=== PATIENT | female | born 1995 | race Caucasian/White ===

== ENCOUNTER 2017-06-04 19:55 | Emergency (ER) | payer MEDICAID, OTHER ==
--- OUTSIDE RECORDS SUMMARY | 2017-06-04 20:04 | XMS REPORT ---
:1995 External Reference #:[id number] Author Organization [facility] Address [address] [address] Phone [phone] Care Team Providers Name Role Phone Donya Chan MD Care Team Information Fire Investigation Lieutenant Unavailable Tapan Thompson MD Primary Care Physician Unavailable Payers Type Date Identification Numbers Payment Provider Subscriber Commercial Policy Number: [id number] [facility] Jayde Casey PayID: [id number] [address] [address] [place] [address] Problems Date Description Provider Status Onset: 04/12/2015 Obstructive sleep apnea syndrome Roland Wilkins M.D. Active Onset: 04/12/2015 Gastroesophageal reflux disease Roland Wilkins M.D. Active Onset: 11/02/2015 Lactose intolerance Diana Fregoso M.D.,FACP Onset: 03/20/2016 Exercise-induced asthma Diana Fregoso M.D.,FACP Onset: 07/24/2016 Vaginitis Douglas Collins NP Inactive Inactive: 11/20/2016 Family History Date Family Member(s) Problem(s) Comments General Hypercholesterolemia mother General Hypertension mother/ father General Angina mother General Diabetes mother, maternal grandmother General Stroke mother : (age Father due to Prostate cancer 50 Years) Mother TIA Mother Diabetes Mother Heart disease Social History Type Date Description Comments Marital Status Significant Other Lives With Mother Lives With Male Partner 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 [employer] Work Status Not Currently 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 [employer] Cigarette Use Never Smoked Cigarettes ETOH Use 11/02/2015 Rarely consumes alcohol Smoking Patient has never smoked Recreational Drug Use Denies Drug Use Daily Caffeine Occasionally Exercise Type/Frequency Does not exercise General Hx Text no children Allergies, Adverse Reactions, Alerts Date Description Reaction Status Severity Comments 04/12/2015 Ibuprofen vomiting active Mild 11/02/2015 NSAIDs vomiting active 11/17/2013 NKDA inactive Medications Medication Date Status Form Strength Qnty SIG Indications Ordering Provider Fluticasone 05/20 Active Suspension 50mcg/Act 16gm 1 act each J01.90 Zsofia Propionate nostril Hao, twice daily DESIGN INSERTER Nasal [place] 05/20 Active Solution 0.05% 30ml 2 sprays J01.90 Zsofia Hour each nostril Hao, 2x daily as DESIGN INSERTER needed for congestion Meloxicam 11/18 Active Tablets 7.5mg 30tab 1 by mouth M70.71 s every day as Amee Thompson needed M.DIngrid,FACMartin Omeprazole 11/[address] 20mg 45cap 1 by mouth K21.9 s every other Amee Thompson, day M.D.,FACP Nizatidine 11/01 Active Capsules 300mg 45cap by mouth K21.9 s every other Amee Thompson, day M.DIngrid,FACP alternating w/ omeprazole Proair HFA 04/19 Active Aerosol 108(90Bas 1unit 1 puff every R06.2 e) s 4 hours as Tajik, mcg/Act needed for PAYMENT PROCESSOR chest tightness or wheezing Cpap 00/00 Active every night Unknown /0000 at bedtime Fiber-Caps 00/00 Active Tablets 625mg 1 by mouth Unknown /0000 every day Zovia 1/35E 00/00 Active Tablets 1-35mg-mc 28tab 1 by mouth Tapan (28) /0000 g s every day Amee Thompson M.D.,FACP Ketoconazole 04/14 Hx Cream 2% 60gm apply thin L42 layer Tajik, - topically to PAYMENT PROCESSOR 07/24 area twice a day until resolved Tessalon Perles 03/20 Hx Capsules 100mg 30cap 1-2 by mouth J45.21 s three times Amee Thompson, - a day as Aye,FACP 04/11 Azithromycin 03/20 Hx Tablets 250mg 6tabs 2 every day J45.21 for 1 day, Amee Thompson, - then 1 every M.D.,FACP Melatonin ER 02/25 Hx Tablets ER 3mg 30tab 1-2 tabs po G47.00 s at hs only Tajik, - as needed PAYMENT PROCESSOR 07/24 Lactaid 11/01 Hx Tablets 3000Unit 100ta 1-2 tab E73.9 bs 5x/day w/ Amee Thompson, - dairy as M.D.,FACP 07/24 Levofloxacin 04/12 Hx Tablets 500mg 5tabs 1 tablt by J06.9 mouth every Wilkins, - day M.D. 04/19 Escitalopram Hx Tablets 20mg 30tab 1 by mouth Unknown Oxalate /0000 s every day - 04/12 Norethindrone Hx Tablets 5mg 1 by mouth Unknown Acetate /0000 every day - 11/[address] 20mg 100ca 1 by mouth Unknown /0000 ps every day - 11/01 PPD Active Injection Ingraham /0000 Aye Gilmore Medications Administered in Office Medication Date Status Form Strength Qnty SIG Indications Ordering Provider PPD Administered Injection Mazin 017 Aye Gilmore PPD Administered Injection Douglas 016 Tajik, PAYMENT PROCESSOR HPV,Unspecifie Administered Injection Unknown d 011 HPV,Unspecifie Administered Injection Unknown d 010 HPV,Unspecifie Administered Injection Unknown d 010 Polio,Unspecif Administered Injection Unknown ied 999 Polio,Unspecif Administered Injection Unknown ied 997 Polio,Unspecif Administered Injection Unknown ied 995 Polio,Unspecif Administered Injection Unknown ied 995 Immunizations CPT Code Status Date Vaccine Reaction Lot # [id number] Given 04/14/2017 Influenza Virus Vaccine, no immediate reaction, [id number] Quadrivalent, Split, pt tolerated well Preservative Free 76088 Given 03/20/2016 Influenza Virus Vaccine, [id number] Quadrivalent, Split Virus, Im Use 64892 Given 05/04/2013 Meningococcal Conjugate Vaccine 33183 Given 05/04/2013 Hepatitis A Vaccine Pediatric/Adolescent Dosage 2 Dose Schedule 51565 Given 02/25/2010 Varicella (Chicken Pox) Immunization 83044 Given 02/02/2009 Meningococcal Conjugate Vaccine 63495 Given 02/02/2009 Tdap - Tetanus/Diptheria/Acellular Pertussis 96438 Given 01/25/1999 Measles Mumps And Rubella MMR 81464 Given 11/10/1997 Varicella (Chicken Pox) Immunization 05300 Given 11/17/1996 Measles Mumps And Rubella MMR 20528 Given 1995 Hep B Pediatric/Adolescent 61275 Given 1995 Hep B Pediatric/Adolescent 87173 Given 1995 Hep B Pediatric/Adolescent Vital Signs Date Vital Result Comment 05/20/2017 Height 63.5 inches 5'3.50" Weight 237.00 lb Heart Rate 106 /min BP Systolic Sitting 122 mmHg BP Diastolic Sitting 80 mmHg Body Temperature 99.2 F O2 % BldC Oximetry 98 % BMI (Body Mass Index) 41.3 kg/m2 04/14/2017 Height 63.5 inches 5'3.50" Weight 234.44 lb Heart Rate 124 /min BP Systolic 128 mmHg BP Diastolic 84 mmHg Body Temperature 99.3 F O2 % BldC Oximetry 99 % BMI (Body Mass Index) 40.9 kg/m2 11/20/2016 Height 63.5 inches 5'3.50" Weight 235.50 lb Heart Rate 101 /min BP Systolic Sitting 136 mmHg BP Diastolic Sitting 80 mmHg Body Temperature 98.4 F O2 % BldC Oximetry 99 % BMI (Body Mass Index) 41.1 kg/m2 07/24/2016 Weight 230.00 lb Heart Rate 111 /min BP Systolic Standing 136 mmHg BP Diastolic Standing 90 mmHg Body Temperature 97.9 F O2 % BldC Oximetry 96 % 04/14/2016 Height 63.5 inches 5'3.50" Weight 220.00 lb Heart Rate 100 /min BP Systolic 120 mmHg BP Diastolic 72 mmHg Body Temperature 98.7 F O2 % BldC Oximetry 99 % BMI (Body Mass Index) 38.4 kg/m2 04/11/2016 Weight 221.25 lb Heart Rate 100 /min BP Systolic Sitting 110 mmHg BP Diastolic Sitting 68 mmHg Body Temperature 98.4 F O2 % BldC Oximetry 99 % 03/20/2016 Height 63.5 inches 5'3.50" Weight 220.00 lb Heart Rate 100 /min BP Systolic Sitting 130 mmHg BP Diastolic Sitting 88 mmHg Body Temperature 98.6 F O2 % BldC Oximetry 99 % BMI (Body Mass Index) 38.4 kg/m2 02/26/2016 Weight 215.38 lb Heart Rate 73 /min BP Systolic Sitting 120 mmHg BP Diastolic Sitting 90 mmHg Body Temperature 97.9 F O2 % BldC Oximetry 98 % 02/04/2016 Weight 214.00 lb Heart Rate 95 /min BP Systolic Sitting 124 mmHg BP Diastolic Sitting 74 mmHg O2 % BldC Oximetry 98 % 11/19/2015 Height 63.5 inches 5'3.50" Weight 213.00 lb Heart Rate 78 /min BP Systolic Sitting 116 mmHg BP Diastolic Sitting 74 mmHg Body Temperature 97.9 F O2 % BldC Oximetry 98 % BMI (Body Mass Index) 37.1 kg/m2 11/02/2015 Height 63.5 inches 5'3.50" Weight 214.00 lb Heart Rate 84 /min BP Systolic Sitting 142 mmHg BP Diastolic Sitting 88 mmHg Respiratory Rate 14 /min Body Temperature 98.8 F BMI (Body Mass Index) 37.3 kg/m2 05/07/2015 Height 63.5 inches 5'3.50" Weight 210.00 lb Heart Rate 105 /min BP Systolic Sitting 122 mmHg BP Diastolic Sitting 78 mmHg Body Temperature 97.4 F O2 % BldC Oximetry 98 % BMI (Body Mass Index) 36.6 kg/m2 04/19/2015 Height 63.5 inches 5'3.50" Weight 208.50 lb Heart Rate 84 /min BP Systolic Sitting 122 mmHg BP Diastolic Sitting 72 mmHg Respiratory Rate 16 /min Body Temperature 98.2 F tympanic O2 % BldC Oximetry 97 % Ra BMI (Body Mass Index) 36.4 kg/m2 04/12/2015 Height 63.5 inches 5'3.50" Weight 212.38 lb Heart Rate 74 /min BP Systolic Sitting 112 mmHg BP Diastolic Sitting 72 mmHg Body Temperature 98.8 F O2 % BldC Oximetry 95 % BMI (Body Mass Index) 37.0 kg/m2 11/17/2013 Height 63 inches 5'3" Weight 224.00 lb Heart Rate 80 /min BP Systolic 110 mmHg Ra large cuff BP Diastolic 80 mmHg Ra large cuff BP Systolic Sitting 110 mmHg LA large cuff BP Diastolic Sitting 78 mmHg LA large cuff BP Systolic Standing 108 mmHg LA BP Diastolic Standing 80 mmHg LA Respiratory Rate 16 /min BMI (Body Mass Index) 39.7 kg/m2 Blood Pressure Percentile 51 % Height Percentile 31 % Weight Percentile >97th Results Test Date Test Result H/L Range Note Laboratory test 11/20/2016 Cytology SEE RESULT BELOW 1 finding GC/Chlamydia 11/20/2016 Chlamydia Negative Negative Amplified Rna trachomatis Rna Neisseria gonorrhoeae (GC) Rna Negative Negative Laboratory test 07/24/2016 Gardnerella/Yeast: Vaginal SEE RESULT 2 finding Dna BELOW Laboratory test 02/08/2016 TSH (Thyroid Stim Horm) 5.58 mcIU/mL 0.34- 5.60 3 finding Lipid Profile 02/08/2016 Triglycerides 153 mg/dL 4 (Trig/Chol/HDL) Cholesterol 172 mg/dL 5 HDL Cholesterol 51.8 mg/dL 6 LDL Cholesterol 90 mg/dL 7 Laboratory test finding 02/08/2016 Glucose 99 mg/dL 70-100 8 Cortisol 19.70 ?g/dL 9 Laboratory test finding 02/04/2016 Cytology SEE RESULT BELOW 10 1 SEE RESULT BELOW Name: JAYDE CASEY : [address]: Sabra Thompson MD Acct: [id number] Unit: [id number] AGE: 21 Location: [facility] Re11/20/16 SEX: F Status: REG REF SPEC: [id number] YOLA: 11/20/16-[address]: Tapan Thompson MD REQ: [id number] RECD: 11/20/16 STATUS: SOUT _ ORDERED: TP IMAGE ANAL, KENO WRITER/RUNNER PHYS INTERP COMMENTS: [id number] FINAL DIAGNOSIS EPITHELIAL CELL ABNORMALITIES Low grade squamous intraepithelial lesion (LSIL) A. Ectocervical/Endocervical Specimen Adequacy: Satisfactory of evaluation Transformation zone component identified Patient Information: HPV: Thin Layer Pap Test w/reflex to high risk HPV RNA testing when ASCUS Actual Specimen Date: 11/20/16 Last Menstrual Date: 10/29/16 Spec Date if unknown: 02/2016 ?: N Previous Abnormal Pap Smears?:Y If Yes, enter Diagnosis: Low grade squamous intraepithelial lesion. Signed (signature on file) René Corrigan MD 1539 This Pap test was evaluated with the assistance of the [employer] Test Imaging System. Due to cytologic findings at the trench digger microscope, comprehensive manual rescreening by a Change Room Attendant may be required. The Pap Smear is a screening test designed to aid in the detection of premalignant and malignant conditions of the uterine cervix. It is not a diagnostic procedure and should not be used as the sole means of detecting cervical cancer. Both false- positive and false- negative reports do occur. Depending on your risk status, a Pap smear should be obtained and evaluated every 1-3 years. END OF REPORT * ML=Testing performed at Main Lab DEPARTMENT OF PATHOLOGY, [address] [place] [address] René Corrigan M.D. Director [facility] # [id number] 2 SEE RESULT BELOW Name: JAYDE CASEY : [address]: Douglas Collins NP Acct: [id number] Unit: [id number] AGE: 21 Location: [facility] Re07/24/16 SEX: F Status: REG REF SPEC: [id number] YOLA: 07/24/16-[address]: Douglas Collins NP REQ: [id number] RECD: 07/24/16 STATUS: COMP _ SOURCE: VAGINAL SPDESC: ORDERED: Ashlie,Yeast DNA, Trich DNA COMMENTS: [id number] Procedure Result Reported Site Gardnerella/Yeast: Vaginal DNA Final 07/25/16- 1316 ML Organism 1 Negative Gardnerella Organism 2 POSITIVE KELLY The presence of G. vaginalis, although suggestive, is not diagnostic for bacterial vaginosis. Results should be interpreted in conjuction with other clinical and laboratory data available. Women with vaginal discharge should be evaluated for risk factors of cervicitis and pelvic inflammatory disease, toxic shock syndrome (S.aureus), and if present, evaluated for organisms not included in this assay such as N. gonorrhoeae, C. trachomatis, Mobiluncus, Mycoplasma and/or Prevotella. Mixed infections may occur. The performance of this test on patient specimens collected during or immediately after antimicrobial therapy is unknown. The presence or absence of Kelly species, or G. vaginalis cannot be used as a test for therapeutic success or failure. Trichomonas: Vaginal DNA Probe Final 07/25/16- 1316 ML Organism 1 Negative Trichomonas CONTINUED ON NEXT PAGE * ML=Testing performed at Main Lab DEPARTMENT OF PATHOLOGY, [address] [place] [address] René Corrigan M.D. Director [facility] # [id number] Patient: KEVENJAYDE [id number] (Continued) Specimen: [id number] Collected: 07/24/16 Received: 07/24/16 (Continued) Procedure Result Reported Site Trichomonas: Vaginal DNA Probe Final (continued) 07/25/16- 1316 The presence or absence of T. vaginalis cannot be used as a test for therapeutic success or failure. * ML - MAIN LAB ([facility]) . END OF REPORT * ML=Testing performed at Main Lab DEPARTMENT OF PATHOLOGY, [address] [place] [address] René Corrigan M.D. Director [facility] # [id number] 3 FASTING 10 HOUR fasting labs do in Am no later than 8 am 4 Desirable <150 Borderline high 150-199 High 200-499 Very High >500 5 Desirable <200 Borderline high 200-239 High >239 6 Low <40 Desirable: 40-60 High: >60 7 Desirable: <100 mg/dL Near Optimal: 100-129 mg/dL Borderline High: 130-159 mg/dL High: 160-189 mg/dL Very High: >189 mg/dL 8 FASTING 10 HOUR fasting labs do in Am no later than 8 am 9 AM 8.7-22.4 PM <10 10 SEE RESULT BELOW Name: JAYDE CASEY : [address]: Douglas Collins PAYMENT PROCESSOR Acct: [id number] Unit: [id number] AGE: 21 Location: [facility] Re02/04/16 SEX: F Status: REG REF SPEC: [id number] YOLA: 02/04/16-1649 [facility] DR: Douglas Collins PAYMENT PROCESSOR REQ: [id number] RECD: 02/04/16 STATUS: SOUT _ ORDERED: IMAGE ANALYSIS, PAP SM PATH REV COMMENTS: [id number] FINAL DIAGNOSIS EPITHELIAL CELL ABNORMALITIES Low grade squamous intraepithelial lesion (LSIL) A. Ectocervical/Endocervical Specimen Adequacy: Satisfactory of evaluation Transformation zone component identified Patient Information: HPV: Thin Layer Pap Test w/reflex to high risk HPV RNA testing when ASCUS Actual Specimen Date: 02/04/16 Last Menstrual Date: 02/01/16 Spec Date if unknown: initial ?: N Post Menopausal?: N Hysterectomy?: N Signed (signature on file) Phyllis Whitehead MD 1526 This Pap test was evaluated with the assistance of the [employer] Test Imaging System. Due to cytologic findings at the trench digger microscope, comprehensive manual rescreening by a Change Room Attendant may be required. The Pap Smear is a screening test designed to aid in the detection of premalignant and malignant conditions of the uterine cervix. It is not a diagnostic procedure and should not be used as the sole means of detecting cervical cancer. Both false- positive and false- negative reports do occur. Depending on your risk status, a Pap smear should be obtained and evaluated every 1-3 years. END OF REPORT * ML=Testing performed at Main Lab DEPARTMENT OF PATHOLOGY, [address] [place] [address] René Corrigan M.D. Director [facility] # [id number] Procedures Date CPT Code Description Status 11/17/2013 20655 EKG Tracing & Interpretation Completed 09/13/2013 49672 EKG, Interpretation Only Completed 05/04/2013 42276 Polysomnography Sleep Staging 4+ Parameters W/Cpap Completed 12/21/2012 48349 Polysomnography Sleep Staging 4+ Parameters Completed Encounters Type Date Location Provider CPT E/M Dx Office Visit 04/14/2017 11:20a [facility] Mazin Gilmore, 98189 Z00.01 Medicine - [place]ady Griffiths Z23 Z11.1 Office Visit 11/20/2016 3:40p [facility] Tapan Thompson, 58849 R87.618 Medicine - [place] Grady Griffiths,FACP G47.00 E66.01 E03.9 Office Visit 07/24/2016 1:40p [facility] [place] [address] Office Visit 04/14/2016 11:20a [facility] [place] [address] Z11.1 Office Visit 04/11/2016 2:20p [facility] Medicine - Douglas Collins, PAYMENT PROCESSOR [address] Z11.1 E66.9 Office Visit 03/20/2016 1:40p [facility] Tapan Thompson, [address] J45.21 Medicine - [address] Aye,FACP Z23 Office Visit 02/26/2016 1:40p [facility] Medicine - Douglas Collins, PAYMENT PROCESSOR [address] Office Visit 02/04/2016 1:40p [facility] Medicine - Douglas Collins, PAYMENT PROCESSOR [address] E66.9 Office Visit 11/19/2015 1:40p [facility] Douglas Collins, PAYMENT PROCESSOR 65149 M70.71 - [address] Office Visit 11/02/2015 9:20a [facility] Tapan Thompson, [address]3883 E73.9 - [address] Aye,FACP K21.9 E66.09 M25.551 Office Visit 05/07/2015 4:00p [facility] Roland Wilkins M.D. 19170 E73[address] - [address] E73.9 Office Visit 04/19/2015 11:00a [facility] Medicine - Douglas Collins, PAYMENT PROCESSOR [address] R05 R06.2 M54.5 Office Visit 04/12/2015 11:00a [facility] Roland Wilkins M.D. [address]97 J06[address] K21.9 G47.33 E66.09 Office Visit 11/17/2013 2:00p [facility] Dillard, [address] 780.79 Quique Griffiths 327.23 Office Visit 12/30/2012 2:55p [facility] Josiah Charles [address] 327.23 M.DIngrid Office Visit 12/02/2012 3:09p [facility] Josiah Charles 61576 327.23 M.DIngrid 347.00 Plan of Care Future Appointment(s):07/16/2017 11:20 am - Tapan Thompson M.D.,FACP at [facility] Medicine - [address]05/20/2017 - KEV EsquivelJ01.90 Acute sinusitis, unspecifiedNew Medication:Fluticasone Propionate 50 mcg/ActNasal [place] 12 Hour 0.05 %Comments:You likely have a viral infection of your sinuses.1. We recommend to increase rest and fluid intake,increase vitamin C.Take Tylenol 3 x day to reduce the pain and discomfort.Nasal irrigation: Flushing the nose and sinuses with a saline solution several times per day has been proven to decrease painassociated with congestion and shorten the duration of symptoms. Sent RX to your pharmacy.Nasal steroids Nasal steroids ( steroids delivered by a nasal spray) can help to reduce swelling inside the nose , usually within two to three days. These drugs have few side effects and relieve symptoms in mostpeople.If symptoms worsen or persist please call. I will send a prescription for an antibiotics ifsymptoms do not improve next 2 days.Follow up:as [id number] CoughComments:Topical [place]: honey, winter, licorice, cough drops or syrups are locally soothing. Their use is not supported by scientific evidence.
[2017-06-04] MEDS ORDERED: Ondansetron ODT TAB* 4 MG SL ONE (20:22)
[2017-06-04] MEDS ORDERED: Ondansetron INJ* 2 MG/ML VIAL IV ONE (22:04)
[2017-06-04] MEDS ORDERED: NS 0.9% 1000 ML* 2,000 ML IV ONE (22:04)
[2017-06-04] MEDS ORDERED: Al Hydrox/Mg Hydrox/Simet LIQ* 30 ML UDC PO ONE (22:04)
[2017-06-04 22:32] LABS: ABS Basophils 0 10^3/ul (0-0.2); ABS Eosinophils 0.1 10^3/ul (0-0.6); ABS Lymphocytes 1.1 10^3/ul (1.0-4.8); ABS Monocytes 0.7 10^3/ul (0-0.8); ABS Neutrophils 16.9 10^3/ul (1.5-7.7); ABS Nucleated RBC 0 10^3/ul; Eosinophil % 0.3 % (0-6); Hematocrit 42 % (35-47); Hemoglobin 13.9 g/dl (12.0-16.0); Lymphocyte % 5.8 % (25-47); Mean Corpuscular HGB Conc 33 g/dl (31-36); Mean Corpuscular Hemoglobin 28 pg (27-31); Mean Corpuscular Volume 83 fL (80-97); Mean Platelet Volume 9 um3 (7.4-10.4); Nucleated Red Blood Cells % 0; Platelet Count 280 10^3/ul (150-450); Red Blood Count 5.01 10^6/ul (4.0-5.4); Red Cell Distribution Width 14 % (10.5-15); White Blood Count 18.8 10^3/ul (3.5-10.8)
[2017-06-04 22:45] LABS: EGFR Non-African American 122.6 (>60)
[2017-06-05 00:27] LABS: Urine Appearance Cloudy; Urine Blood 2+ (Negative); Urine Color Yellow; Urine Ketones 1+ (Negative); Urine Protein Negative (Negative); Urine Specific Gravity 1.034 (1.010-1.030); Urine Urobilinogen Negative (Negative)
--- NOTE | 2017-06-05 01:10 | ED ---
Nausea/Vomiting/Diarrhea HPI - HPI Summary HPI Summary: Patient presents to the ED with CC of N/V since this morning which has been unrelenting. Hx of PCOS and takes control. Partner at bedside. She states she was able to eat a cheeseburger and fries and some cans of soda today. She has been trying to drink less soda per patient, but has been drinking a lot lately d/t holidays which has been irritating her stomach. D/t the vomiting, she has been c/o epigastric pain. Denies urinary symptoms, or constipation but notes to some "loose stools." All symptoms have been present for 24 hours. Worsening vomiting today. She tried to take a zofran - History of Current Complaint Chief Complaint: EDNauseaVomitDiarrh Stated Complaint: VOMITING/NAUSEA Time Seen by Provider: 06/04/17 21:48 Hx Obtained From: Patient Hx Last Menstrual Period: Middle of June ?: No Onset/Duration: Sudden Onset Timing: Constant Severity Initially: Moderate Severity Currently: Moderate Pain Intensity: 6 Pain Scale Used: 0-10 Numeric Location: Epigastric Character: Cramping Aggravating Factor(s): Food Alleviating Factor(s): Antacids, Vomiting Vomiting Frequency: Every 1-2 hours Nausea/Vomiting Duration: 0-12 hours Diarrhea Presence: Yes Diarrhea Frequency: Daily Diarrhea Duration: 0-12 hours Diarrhea Characteristics: Other - loose - Risk Factors Influenza Risk Factors: Negative Surgical Obstruction Risk Factor(s): Negative - Allergies/Home Medications Allergies/Adverse Reactions: Allergies Allergy/AdvReac Type Severity Reaction Status Date / Time NSAIDs AdvReac Nausea Verified 06/04/17 20:00 PMH/Surg Hx/FS Hx/Imm Hx Previously Healthy: Yes Endocrine/Hematology History: Denies: Hx Diabetes, Hx Thyroid Disease Cardiovascular History: Denies: Hx Hypertension Respiratory History: Reports: Hx Sleep Apnea - Current CPAP user on auto setting. Denies: Hx Asthma, Hx Chronic Obstructive Pulmonary Disease (COPD) GI History: Reports: Hx Gastroesophageal Reflux Disease - 30 mg omeprazole q daily w/good results, Hx Ulcer Musculoskeletal History: Reports: Hx Back Problems - recent complaint of low back pain Sensory History: Reports: Hx Contacts or Glasses Opthamlomology History: Reports: Hx Contacts or Glasses Psychiatric History: Reports: Hx Anxiety - Surgical History Surgery Procedure, Year, and Place: wisdom teeth Infectious Disease History: No Infectious Disease History: Denies: Hx Clostridium Difficile, Hx Hepatitis, Hx Human Immunodeficiency Virus (HIV), Hx of Known/Suspected MRSA, Hx Shingles, Hx Tuberculosis, Hx Known/ Suspected VRE, Hx Known/Suspected VRSA, History Other Infectious Disease, Traveled Outside the [place] in Last 30 Days - Family History Known Family History: Positive: None Family History: R & n/C - Social History Occupation: Unemployed Lives: With Family Alcohol Use: Rare Hx Substance Use: No Substance Use Type: Reports: None Hx Tobacco Use: No Smoking Status (MU): Never Smoked Tobacco Have You Smoked in the Last Year: No Review of Systems Constitutional: Negative Negative: Fever, Chills, Fatigue Eyes: Negative Cardiovascular: Negative Genitourinary: Negative Positive: no symptoms reported, see HPI Musculoskeletal: Negative Neurological: Negative Psychological: Normal All Other Systems Reviewed And Are Negative: Yes Physical Exam Triage Information Reviewed: Yes Vital Signs On Initial Exam: Initial Vitals Temp Pulse Resp BP Pulse Ox 98.1 F 133 15 148/82 98 06/04/17 19:57 06/04/17 19:57 06/04/17 19:57 06/04/17 19:57 06/04/17 19:57 Vital Signs Reviewed: Yes Appearance: Positive: Well-Appearing, No Pain Distress, Well-Nourished Skin: Positive: Warm, Skin Color Reflects Adequate Perfusion Head/Face: Positive: Normal Head/Face Inspection Eyes: Positive: EOMI, ROBERT, Conjunctiva Clear Neck: Positive: Supple, Nontender, No Lymphadenopathy Respiratory/Lung Sounds: Positive: Clear to Auscultation, Breath Sounds Present Cardiovascular: Positive: RRR, Pulses are Symmetrical in both Upper and Lower Extremities Abdomen Description: Positive: Soft - tenderness to the epigastric region without pain in the RLQ or LLQ. negative castro's, no tenderness at mcburney's negative obturators - [place] Coma Scale Coma Scale Total: 15 Diagnostics - Vital Signs Vital Signs Temp Pulse Resp BP Pulse Ox 06/05/17 00:30 121 141/77 97 06/05/17 00:24 117 132/78 97 06/05/17 00:01 117 143/78 99 06/05/17 00:00 121 98 06/04/17 23:30 128 159/105 98 06/04/17 23:20 131 98 06/04/17 23:19 143/95 06/04/17 19:57 98.1 F 133 15 148/82 98 - Laboratory Lab Results: Lab Results 06/04/17 06/04/17 06/04/17 Range/Units 22:20 22:20 22:20 WBC 18.8 H (3.5-10.8) 10^3/ul RBC 5.01 (4.0-5.4) 10^6/ul Hgb 13.9 (12.0-16.0) g/dl Hct 42 (35-47) % MCV 83 (80-97) fL MCH 28 (27-31) pg MCHC 33 (31-36) g/dl RDW 14 (10.5-15) % Plt Count 280 (150-450) 10^3/ul MPV 9 (7.4-10.4) um3 Neut % (Auto) 89.9 H (38-83) % Lymph % (Auto) 5.8 L (25-47) % Mcmullen % (Auto) 3.8 (1-9) % Eos % (Auto) 0.3 (0-6) % Baso % (Auto) 0.2 (0-2) % Absolute Neuts (auto) 16.9 H (1.5-7.7) 10^3/ul Absolute Lymphs (auto) 1.1 (1.0-4.8) 10^3/ul Absolute Monos (auto) 0.7 (0-0.8) 10^3/ul Absolute Eos (auto) 0.1 (0-0.6) 10^3/ul Absolute Basos (auto) 0 (0-0.2) 10^3/ul Absolute Nucleated RBC 0 10^3/ul Nucleated RBC % 0 Sodium 137 (133-145) mmol/L Potassium 3.9 (3.5-5.0) mmol/L Chloride 101 (101-111) mmol/L Carbon Dioxide 23 (22-32) mmol/L Anion Gap 13 H (2-11) mmol/L BUN 12 (6-24) mg/dL Creatinine 0.61 (0.51-0.95) mg/dL Est GFR ( Amer) 157.7 (>60) Est GFR (Non-Af Amer) 122.6 (>60) BUN/Creatinine Ratio 19.7 (8-20) Glucose 117 H (70-100) mg/dL Lactic Acid 2.3 H* (0.5-2.0) mmol/L Calcium 10.0 (8.6-10.3) mg/dL Magnesium 1.6 L (1.9-2.7) mg/dL Total Bilirubin 0.40 (0.2-1.0) mg/dL AST 12 L (13-39) U/L ALT 17 (7-52) U/L Alkaline Phosphatase 68 (34-104) U/L C-Reactive Protein 23.57 H (< 5.00) mg/L Total Protein 8.4 (6.4-8.9) g/dL Albumin 4.4 (3.2-5.2) g/dL Globulin 4.0 (2-4) g/dL Albumin/Globulin Ratio 1.1 (1-3) Lipase 17 (11.0-82.0) U/L Beta HCG, Quant < 0.60 mIU/mL Urine Color Urine Appearance Urine pH (5-9) Ur Specific [place] (1.010-1.030) Urine Protein (Negative) Urine Ketones (Negative) Urine Blood (Negative) Urine Nitrate (Negative) Urine Bilirubin (Negative) Urine Urobilinogen (Negative) Ur Leukocyte Esterase (Negative) Urine WBC (Auto) (Absent) Urine RBC (Auto) (Absent) Ur Squamous Epith Cells (Absent) Urine Bacteria (Absent) Urine Glucose (Negative) 06/05/17 Range/Units 00:07 WBC (3.5-10.8) 10^3/ul RBC (4.0-5.4) 10^6/ul Hgb (12.0-16.0) g/dl Hct (35-47) % MCV (80-97) fL MCH (27-31) pg MCHC (31-36) g/dl RDW (10.5-15) % Plt Count (150-450) 10^3/ul MPV (7.4-10.4) um3 Neut % (Auto) (38-83) % Lymph % (Auto) (25-47) % Mcmullen % (Auto) (1-9) % Eos % (Auto) (0-6) % Baso % (Auto) (0-2) % Absolute Neuts (auto) (1.5-7.7) 10^3/ul Absolute Lymphs (auto) (1.0-4.8) 10^3/ul Absolute Monos (auto) (0-0.8) 10^3/ul Absolute Eos (auto) (0-0.6) 10^3/ul Absolute Basos (auto) (0-0.2) 10^3/ul Absolute Nucleated RBC 10^3/ul Nucleated RBC % Sodium (133-145) mmol/L Potassium (3.5-5.0) mmol/L Chloride (101-111) mmol/L Carbon Dioxide (22-32) mmol/L Anion Gap (2-11) mmol/L BUN (6-24) mg/dL Creatinine (0.51-0.95) mg/dL Est GFR ( Amer) (>60) Est GFR (Non-Af Amer) (>60) BUN/Creatinine Ratio (8-20) Glucose (70-100) mg/dL Lactic Acid (0.5-2.0) mmol/L Calcium (8.6-10.3) mg/dL Magnesium (1.9-2.7) mg/dL Total Bilirubin (0.2-1.0) mg/dL AST (13-39) U/L ALT (7-52) U/L Alkaline Phosphatase (34-104) U/L C-Reactive Protein (< 5.00) mg/L Total Protein (6.4-8.9) g/dL Albumin (3.2-5.2) g/dL Globulin (2-4) g/dL Albumin/Globulin Ratio (1-3) Lipase (11.0-82.0) U/L Beta HCG, Quant mIU/mL Urine Color Yellow Urine Appearance Cloudy Urine pH 5.0 (5-9) Ur Specific [place] 1.034 H (1.010-1.030) Urine Protein Negative (Negative) Urine Ketones 1+ H (Negative) Urine Blood 2+ H (Negative) Urine Nitrate Negative (Negative) Urine Bilirubin Negative (Negative) Urine Urobilinogen Negative (Negative) Ur Leukocyte Esterase Trace H (Negative) Urine WBC (Auto) Trace(0-5/hpf) (Absent) Urine RBC (Auto) Trace(0-2/hpf) (Absent) Ur Squamous Epith Cells Present H (Absent) Urine Bacteria Absent (Absent) Urine Glucose Negative (Negative) Result Diagrams: 06/04/17 22:20 06/04/17 22:20 Lab Statement: Any lab studies that have been ordered have been reviewed, and results considered in the medical decision making process. Naus/Vom/Diarrhea Course/Dx - Course Course Of Treatment: Patient presents to the ED with 24 hour history of N/V and now with loose stools. Denies sick contacts. During the course of treatment, patient is given zofran IV with mild effect and 2L fluids. negative. WBC elevated at 18. She appears dehydrated but continues to take PO water and gatorade. She is given another 4mg zofran IV with relief. S/p fluids, patient is feeling much improved. She had a loose stool while in the ED and sample obtained and sent for culture. Pain is 8/10 and discretely located in the epigastric region. She states the N/V has been occuring since yesterday, but the abdominal pain in the epigastric region began this morning most likely d /t vomiting. She takes omeprazole for GERD. She is given famotidine IV. Maalox plus PO. Patient is encouraged fluids, rest and small bites at a time. She is feeling improved and would like to be discharged at this time. Treatment options explained to patient. Patient understands the plan, voices no concerns at this time and understands the return precatuions given to them if they develop any worsening or changing symptoms. They are OK for discharge at this time. VS stable on discharge. Primary care follow up as agreed on discharge. - Differential Dx/Diagnosis Provider Diagnoses: N/V/D Is Visit Related: No Condition At Discharge: Stable Discharge - Discharge Plan Condition: Stable Disposition: HOME Prescriptions: Al Hydrox/Mg Hydrox/Simet LIQ* [Maalox Plus*] 30 ml PO Q4H PRN #1 udc PRN Reason: Pain Ondansetron ODT TAB* [Zofran 4 MG Odt TAB*] 4 mg PO Q6H PRN #12 tab.odt MDD 4 PRN Reason: Nausea Patient Education Materials: Gastroenteritis (ED), Acute Nausea and Vomiting ( ED) Referrals: Tapan Thompson MD [Primary Care Provider] - Additional Instructions: Dx. Nausea If you are having episodes of vomiting, you may become dehydrated. Drink plenty of fluids. If you feel you cannot keep enough fluids down, you may supplement with drinks like Gatorade or V8 juice. This will help balance your electrolytes which are lost during dehydration. Take any medication prescribed to you as directed. Desmond: This medicine may make you dizzy. Do not drive or do anything else that could be dangerous until you know how this medicine affects you. Slowly introduce foods into your diet that you can tolerate. Examples of low reactive foods are crackers, soup, rice, and breads. See below. If you have any questions regarding your medications, you may call the office or your pharmacist. If your symptoms fail to improve or worsen, please call your primary care provider or seek other medical attention. Drink small amounts of fluid as tolerated - gatorade and water only - but do not gulp, small sips at a time. When able to eat follow BRAT diet: Bananas, rice, applesauce, toast, chicken noodle soup Symptoms likely due to viral gastroenteritis Follow up with primary within 5 days if symptoms worsen Return to ED if develop fever that does not respond to Tylenol or ibuprofen, severe abdominal pain, or any new or worsening symptoms Maalox for breakthrough epigastric symptoms
[2017-06-05] MEDS ORDERED: Ondansetron ODT TAB* 4 MG SL ONE (01:46)
[2017-06-05] MEDS ORDERED: O ndansetron ODT 4MG 2TAB PRPK 4 MG PAK PO ONE (02:20)
[2017-06-05 02:43] VITALS: BP 137/82
--- NOTE | 2017-06-06 12:42 | ED ---
Progress - Progress Note Progress Note: Pt's stool cx reveals + WBC's. Her note indicates a h/o diarrhea dx'd as gastroenteritis. Spoke w/ pt who reports although she's not completely back to normal (still having loose stools but not as frequently) and no vomiting, no fever - feels she's continuing to improve. Advised if sx persist, to f/u w/ PCP but if worse to return to ED. Pt agrees w/ plan. Course/Dx - Course Course Of Treatment: Patient presents to the ED with 24 hour history of N/V and now with loose stools. Denies sick contacts. During the course of treatment, patient is given zofran IV with mild effect and 2L fluids. negative. WBC elevated at 18. She appears dehydrated but continues to take PO water and gatorade. She is given another 4mg zofran IV with relief. S/p fluids, patient is feeling much improved. She had a loose stool while in the ED and sample obtained and sent for culture. Pain is 8/10 and discretely located in the epigastric region. She states the N/V has been occuring since yesterday, but the abdominal pain in the epigastric region began this morning most likely d /t vomiting. She takes omeprazole for GERD. She is given famotidine IV. Maalox plus PO. Patient is encouraged fluids, rest and small bites at a time. She is feeling improved and would like to be discharged at this time. Treatment options explained to patient. Patient understands the plan, voices no concerns at this time and understands the return precatuions given to them if they develop any worsening or changing symptoms. They are OK for discharge at this time. VS stable on discharge. Primary care follow up as agreed on discharge. - Diagnoses Is Visit Related: No
== END 2017-06-05 02:53 | disposition home or self-care (01) ==
LOC: ED 19:55
DX: R11.2 Nausea with vomiting, unspecified (principal); R19.7 Diarrhea, unspecified
CPT/HCPCS: 36415; 80053; 81003; 81015; 83605; 83630; 83690; 83735; 84702; 85025; 86140; 87045; 87046; 87086; 87899; 96360; 96374; 99284; A9270-GY; J2405

== ENCOUNTER 2017-09-16 22:24 | Emergency (ER) | payer OTHER ==
[2017-09-16 22:30] VITALS: BP 136/87
[2017-09-17] MEDS ORDERED: Clindamycin CAP* 150 MG PO ONE (00:37)
[2017-09-17] MEDS ORDERED: oxyCODONE/Acetamin 5/325 MG* TAB PO ONE (00:37)
--- NOTE | 2017-09-17 01:45 | ED ---
Moy Alan Nilda, scribed for Harleen Navas MD on 09/17/17 at 0032 . Throat Pain/Nasal Congestion - HPI Summary HPI Summary: This patient is a 22 year old F presenting to [facility] accompanied by family with a chief complaint of constant swelling and moderate pain on right ear for the past 6 days s/p having 2 new piercings placed. Symptoms aggravated by touch and alleviated by nothing. - History of Current Complaint Chief Complaint: EDEarPain Time Seen by Provider: 09/17/17 00:08 Hx Obtained From: Patient Onset/Duration: Sudden Onset, Lasting Days, Still Present Severity: Moderate Associated Signs And Symptoms: Positive: Negative Cough: None Related History: Other (Noted In Comments) - peircings - Allergies/Home Medications Allergies/Adverse Reactions: Allergies Allergy/AdvReac Type Severity Reaction Status Date / Time MS NSAIDs [NSAIDs] AdvReac Nausea Verified 09/16/17 22:30 PMH/Surg Hx/FS Hx/Imm Hx Endocrine/Hematology History: Denies: Hx Diabetes, Hx Thyroid Disease Cardiovascular History: Denies: Hx Hypertension Respiratory History: Reports: Hx Sleep Apnea - Current CPAP user on auto setting. Denies: Hx Asthma, Hx Chronic Obstructive Pulmonary Disease (COPD) GI History: Reports: Hx Gastroesophageal Reflux Disease - 30 mg omeprazole q daily w/good results, Hx Ulcer Musculoskeletal History: Reports: Hx Back Problems - recent complaint of low back pain Sensory History: Reports: Hx Contacts or Glasses Opthamlomology History: Reports: Hx Contacts or Glasses Psychiatric History: Reports: Hx Anxiety - Surgical History Surgery Procedure, Year, and Place: wisdom teeth Infectious Disease History: No Infectious Disease History: Denies: Hx Clostridium Difficile, Hx Hepatitis, Hx Human Immunodeficiency Virus (HIV), Hx of Known/Suspected MRSA, Hx Shingles, Hx Tuberculosis, Hx Known/ Suspected VRE, Hx Known/Suspected VRSA, History Other Infectious Disease, Traveled Outside the [place] in Last 30 Days - Family History Family History: R & n/C - Social History Alcohol Use: Rare Hx Substance Use: No Substance Use Type: Reports: None Hx Tobacco Use: No Smoking Status (MU): Never Smoked Tobacco Have You Smoked in the Last Year: No Review of Systems Positive: Other - right ear pain and swelling Negative: Shortness Of Breath All Other Systems Reviewed And Are Negative: Yes Physical Exam - Summary Physical Exam Summary: VITAL SIGNS: Reviewed. GENERAL: Patient is a well-developed and nourished female who is lying comfortable in the stretcher. Patient is not in any acute respiratory distress. HEAD AND FACE: No signs of trauma. No ecchymosis, hematomas or skull depressions. No sinus tenderness. EYES: PERRLA, EOMI x 2, No injected conjunctiva, no nystagmus. EARS: Hearing grossly intact. Ear canals and tympanic membranes are within normal limits. Right auricle tender, swollen, red. 3 earrings there. MOUTH: Oropharynx within normal limits. NECK: Supple, trachea is midline, no adenopathy, no JVD, no carotid bruit, no c- spine tenderness, neck with full ROM. CHEST: Symmetric, no tenderness at palpation LUNGS: Clear to auscultation bilaterally. No wheezing or crackles. CVS: Regular rate and rhythm, S1 and S2 present, no murmurs or gallops appreciated. ABDOMEN: Soft, non-tender. No signs of distention. No rebound no guarding, and no masses palpated. Bowel sounds are normal. EXTREMITIES: FROM in all major joints, no edema, no cyanosis or clubbing. NEURO: Alert and oriented x 3. No acute neurological deficits. Speech is normal and follows commands. SKIN: Dry and warm Triage Information Reviewed: Yes Vital Signs On Initial Exam: Initial Vitals Temp Pulse Resp BP Pulse Ox 97.2 F 124 16 136/87 97 09/16/17 22:26 09/16/17 22:26 09/16/17 22:26 09/16/17 22:26 09/16/17 22:26 Vital Signs Reviewed: Yes Diagnostics - Vital Signs Vital Signs Temp Pulse Resp BP Pulse Ox 09/16/17 22:26 97.2 F 124 16 136/87 97 - Laboratory Lab Statement: Any lab studies that have been ordered have been reviewed, and results considered in the medical decision making process. EENT Course/Dx - Course Assessment/Plan: Pt is 22 y/o with rings placed to right auricle on 09/12 now with pain, redness, and swelling. Exam consistent with auricle cellulitis. Rings were removed. Pt given abx. Pt D/C with abx and follow up with PCP. - Diagnoses Provider Diagnoses: Cellulitis of auricle of right ear Discharge - Sign-Out/Discharge Documenting (check all that apply): Discharge - home - Discharge Plan Condition: Stable Disposition: HOME Prescriptions: Clindamycin Cap(NF) [Clindamycin Cap 300 mg Cap(NF)] 300 mg PO Q6H #30 cap traMADol TAB* [Ultram*] 50 mg PO Q6HR PRN #10 tab MDD 4 PRN Reason: Pain Patient Education Materials: Cellulitis (ED) Referrals: Tapan Thompson MD [Primary Care Provider] - 2 Days Additional Instructions: RETURN TO THE EMERGENCY DEPARTMENT FOR CHANGING OR WORSENING SYMPTOMS. The documentation as recorded by the Moy vu Nilda accurately reflects the service I personally performed and the decisions made by Eloise hill Abdul, MD.
== END 2017-09-17 01:30 | disposition home or self-care (01) ==
LOC: ED 22:24
DX: H60.11 Cellulitis of right external ear (principal); H92.01 Otalgia, right ear
CPT/HCPCS: 99281; A9270-GY

== ENCOUNTER 2018-01-03 21:32 | Emergency (ER) | payer OTHER ==
[2018-01-04] MEDS ORDERED: Tetan/Diph/Pertus SYR(Tdap)* 0.5 ML SYR(BOOSTRIX) use SYR IM ONE (01:03)
--- NOTE | 2018-01-04 01:07 | ED ---
Skin Complaint - HPI Summary HPI Summary: Patient here with right knee laceration after accidentally kneeling on a garbage bag with a broken wine glass in it. She reports a piece of glass cut her knee and she's not sure if she has any remaining in the area. Does not feel any sharpness however it is sore. Unsure of last tetanus vaccine. Was concerned as she blood through her Band-Aid however bleeding is controlled at this time. She is able to ambulate without difficulty. - History of Current Complaint Chief Complaint: EDExtremityLower Time Seen by Provider: 01/04/18 00:43 Stated Complaint: RIGHT KNEE INJURY Hx Obtained From: Patient Hx Last Menstrual Period: Middle of June Pain Intensity: 10 - Allergy/Home Medications Allergies/Adverse Reactions: Allergies Allergy/AdvReac Type Severity Reaction Status Date / Time NSAIDS (Non-Steroidal AdvReac Mild Nausea Verified 01/03/18 22:21 Anti-Inflamma PMH/Surg Hx/FS Hx/Imm Hx Previously Healthy: Yes Endocrine/Hematology History: Denies: Hx Anticoagulant Therapy, Hx Blood Disorders, Hx Diabetes, Hx Thyroid Disease, Autoimmune Disease Cardiovascular History: Denies: Hx Hypertension Respiratory History: Reports: Hx Sleep Apnea - Current CPAP user on auto setting. Denies: Hx Asthma, Hx Chronic Obstructive Pulmonary Disease (COPD) GI History: Reports: Hx Gastroesophageal Reflux Disease - 30 mg omeprazole q daily w/good results, Hx Ulcer Musculoskeletal History: Reports: Hx Back Problems - recent complaint of low back pain Sensory History: Reports: Hx Contacts or Glasses Opthamlomology History: Reports: Hx Contacts or Glasses Psychiatric History: Reports: Hx Anxiety - Surgical History Surgery Procedure, Year, and Place: wisdom teeth Infectious Disease History: No Infectious Disease History: Denies: Hx Clostridium Difficile, Hx Hepatitis, Hx Human Immunodeficiency Virus (HIV), Hx of Known/Suspected MRSA, Hx Shingles, Hx Tuberculosis, Hx Known/ Suspected VRE, Hx Known/Suspected VRSA, History Other Infectious Disease, Traveled Outside the [place] in Last 30 Days - Family History Known Family History: Positive: Other - mom- multiple health issues - Social History Lives: With Family Alcohol Use: Rare Hx Substance Use: No Substance Use Type: Reports: None Hx Tobacco Use: No Smoking Status (MU): Never Smoked Tobacco Have You Smoked in the Last Year: No Review of Systems Positive: Arthralgia. Negative: Myalgia, Decreased ROM, Edema Skin: Other - lac to Rt knee Neurological: Negative Positive: Anxious All Other Systems Reviewed And Are Negative: Yes Physical Exam Triage Information Reviewed: Yes Vital Signs On Initial Exam: Initial Vitals Temp Pulse Resp BP Pulse Ox 97.9 F 90 18 150/100 99 01/03/18 21:37 01/03/18 21:37 01/03/18 21:37 01/03/18 21:37 01/03/18 21:37 Vital Signs Reviewed: Yes Appearance: Positive: Well-Appearing, No Pain Distress - at rest, Obese Skin: Positive: Warm, Skin Color Reflects Adequate Perfusion, Dry - 0.25 cm shallow laceration over Rt anterior knee - no FB palpated or observed - wound appears clean and is not bleeding ENT: Positive: Hearing grossly normal Respiratory/Lung Sounds: Positive: Breath Sounds Present Cardiovascular: Positive: Pulses are Symmetrical in both Upper and Lower Extremities Musculoskeletal: Positive: Strength/ROM Intact - reports pain w/ moving knee however this is intermittent (no pain when she's distracted and pain out of proportion when paying close attention) Neurological: Positive: Sensory/Motor Intact, Alert, Oriented to Person Place, Time Diagnostics - Vital Signs Vital Signs Temp Pulse Resp BP Pulse Ox 01/03/18 21:37 97.9 F 90 18 150/100 99 - Laboratory Lab Statement: Any lab studies that have been ordered have been reviewed, and results considered in the medical decision making process. Course/Dx - Course Course Of Treatment: wound cleaned w/ antispetic and covered w/ triple anbx + telfa - no bleeding and no sharp objects palpated - no shiny objects observed. XR neg for FB retention (wet read) - Diagnoses Provider Diagnoses: Laceration of right knee Discharge - Sign-Out/Discharge Documenting (check all that apply): Patient Departure - Discharge Plan Condition: Stable Disposition: HOME Patient Education Materials: Laceration (ED) Referrals: Tapan Thompson MD [Primary Care Provider] - Additional Instructions: Gently wash wound with soap and water, rinse well and pat dry with clean cloth. Reapply triple antibiotic ointment and clean dressing. Continue this daily until wound is healed. You may also apply ice, elevate and take acetaminophen as needed for pain * If you develop redness, swelling, streaking, purulent drainage, fevers or chills, seek medical attention sooner or return to the emergency department. - Billing Disposition and Condition Condition: STABLE Disposition: Home
[2018-01-04 01:13] VITALS: BP 123/80
--- NOTE | 2018-01-04 07:53 | RAD ---
INDICATION: Trauma, possible foreign body. TECHNIQUE: 2 views of the right knee were obtained. FINDINGS: The bones are normal alignment. No joint effusion or fracture is seen. There is a possible punctate foreign body in the soft tissues anterior to the patella measuring approximately 0.5 mm. The results of this exam were called to the charge nurse Krissy. IMPRESSION: POSSIBLE PUNCTATE RADIOPAQUE FOREIGN BODY. R3
--- NOTE | 2018-01-04 07:56 | PN ---
Progress Note - Progress Note Date of Service: 01/04/18 Note: dr thomas called and said may be foreign body in wound. left vm for patient telling of find and to wash area with soap and water.
== END 2018-01-04 01:11 | disposition home or self-care (01) ==
LOC: ED 21:32
DX: S81.011A Laceration without foreign body, right knee, initial encounter (principal); W25.XXXA Contact with sharp glass, initial encounter; Y92.9 Unspecified place or not applicable
CPT/HCPCS: 90471; 90715; 99282

== ENCOUNTER 2018-05-28 21:32 | Emergency (ER) | payer OTHER ==
--- NOTE | 2018-05-28 23:45 | ED ---
Lower Extremity - HPI Summary HPI Summary: 23 year old female presents with left great toe injury today. She states she is not able to close much weight on the area due to pain. She denies any previous fracture to the area. No numbness or tingling. No ankle pain. No other injury. Hasn't taken anything for her symptoms. Has been using her crutches to get around. - History of Current Complaint Chief Complaint: EDExtremityLower Stated Complaint: LT BIG TOE INJURY Time Seen by Provider: 05/28/18 23:01 Hx Last Menstrual Period: Middle of June Pain Intensity: 8 - Allergies/Home Medications Allergies/Adverse Reactions: Allergies Allergy/AdvReac Type Severity Reaction Status Date / Time No Known Allergies Allergy Verified 05/28/18 21:48 PMH/Surg Hx/FS Hx/Imm Hx Endocrine/Hematology History: Denies: Hx Anticoagulant Therapy, Hx Blood Disorders, Hx Diabetes, Hx Thyroid Disease Cardiovascular History: Denies: Hx Hypertension, Hx Pacemaker/ICD Respiratory History: Reports: Hx Sleep Apnea - Current CPAP user on auto setting. Denies: Hx Asthma, Hx Chronic Obstructive Pulmonary Disease (COPD) GI History: Reports: Hx Gastroesophageal Reflux Disease - 30 mg omeprazole q daily w/good results, Hx Ulcer Musculoskeletal History: Reports: Hx Back Problems - recent complaint of low back pain Sensory History: Reports: Hx Contacts or Glasses Denies: Hx Hearing Aid Opthamlomology History: Reports: Hx Contacts or Glasses Psychiatric History: Reports: Hx Anxiety Denies: Hx Panic Disorder - Surgical History Surgery Procedure, Year, and Place: wisdom teeth Infectious Disease History: No Infectious Disease History: Denies: Hx Clostridium Difficile, Hx Hepatitis, Hx Human Immunodeficiency Virus (HIV), Hx of Known/Suspected MRSA, Hx Shingles, Hx Tuberculosis, Hx Known/ Suspected VRE, Hx Known/Suspected VRSA, History Other Infectious Disease, Traveled Outside the [place] in Last 30 Days - Family History Known Family History: Positive: None, Other - mom- multiple health issues Family History: R & n/C - Social History Alcohol Use: Rare Hx Substance Use: No Substance Use Type: Reports: None Hx Tobacco Use: No Smoking Status (MU): Never Smoked Tobacco Have You Smoked in the Last Year: No Review of Systems Negative: Fever Negative: Chest Pain Negative: Shortness Of Breath Positive: Myalgia - left great toe All Other Systems Reviewed And Are Negative: Yes Physical Exam Triage Information Reviewed: Yes Vital Signs On Initial Exam: Initial Vitals Temp Pulse Resp BP Pulse Ox 98.3 F 92 20 142/89 97 05/28/18 21:45 05/28/18 21:45 05/28/18 21:45 05/28/18 21:45 05/28/18 21:45 Vital Signs Reviewed: Yes Appearance: Positive: Well-Appearing Skin: Positive: Warm, Dry Head/Face: Positive: Normal Head/Face Inspection Eyes: Positive: Normal, Conjunctiva Clear ENT: Positive: Pharynx normal Respiratory/Lung Sounds: Positive: Clear to Auscultation, Breath Sounds Present Cardiovascular: Positive: Normal, RRR Musculoskeletal: Positive: Limited @ - left great toe, Other - tenderness over proximal phalanx of left great toe, capillary refill<2 secs Neurological: Positive: Normal Psychiatric: Positive: Normal Diagnostics - Vital Signs Vital Signs Temp Pulse Resp BP Pulse Ox 05/28/18 21:45 98.3 F 92 20 142/89 97 - Laboratory Lab Statement: Any lab studies that have been ordered have been reviewed, and results considered in the medical decision making process. - Radiology foot Radiology Interpretation Completed By: ED Physician Summary of Radiographic Findings: no fx Lower Extremity Course/Dx - Course Course Of Treatment: 23 year old female presents with left great toe injury today. She states she is not able to close much weight on the area due to pain. She denies any previous fracture to the area. No numbness or tingling. No ankle pain. No other injury. Hasn't taken anything for her symptoms. Has been using her crutches to get around. On exam tenderness over proximal phalanx of left great toe. Neurovascularly intact. X-ray read by me as normal. gave walking boot. Told to practice rice. Patient understands agrees with plan. - Diagnoses Differential Diagnosis/HQI/PQRI: Positive: Contusion, Fracture (Closed), Sprain Provider Diagnoses: Injury of left great toe Discharge - Sign-Out/Discharge Documenting (check all that apply): Patient Departure - Discharge Plan Condition: Good Disposition: HOME Patient Education Materials: R.I.C.E. Treatment (ED) Referrals: Mazin Gilmore MD [Primary Care Provider] - Hank Hammond MD [Medical Doctor] - Additional Instructions: keep boot on area ice, elevate Take tyenlol or ibuprofen every 6 hours Follow up with primary or ortho Return to ED if develop any new or worsening symptoms - Billing Disposition and Condition Condition: GOOD Disposition: Home
[2018-05-28 23:56] VITALS: BP 146/97
--- NOTE | 2018-05-29 16:36 | ED ---
Progress - Progress Note Progress Note: NOEMI 05/29/18 1636pm: Pt calls asking how long she should wear her CAM boot, and what her official xray reading is. Verified name and . Reviewed chart and xray. Advised pt no fracture. Pt states her foot feels better when wearing the boot. No new injury. Advised pt to continue wearing the boot until seen by orthopedics, that she may take it off at night if desired, since no definite fracture. Pt advised to call Dr. Raymundo's office on 05/21/18 for soonest appt available, and to return to the ER if any new or worsening symptoms. Course/Dx - Course Course Of Treatment: 23 year old female presents with left great toe injury today. She states she is not able to close much weight on the area due to pain. She denies any previous fracture to the area. No numbness or tingling. No ankle pain. No other injury. Hasn't taken anything for her symptoms. Has been using her crutches to get around. On exam tenderness over proximal phalanx of left great toe. Neurovascularly intact. X-ray read by me as normal. gave walking boot. Told to practice rice. Patient understands agrees with plan. - Diagnoses Provider Diagnoses: Injury of left great toe Discharge - Sign-Out/Discharge Documenting (check all that apply): Post-Discharge Follow Up - answering pt's call from home after discharge - Discharge Plan Condition: Good Disposition: HOME Patient Education Materials: R.I.C.E. Treatment (ED) Referrals: Mazin Gilmore MD [Primary Care Provider] - Hank Hammond MD [Medical Doctor] - Additional Instructions: keep boot on area ice, elevate Take tyenlol or ibuprofen every 6 hours Follow up with primary or ortho Return to ED if develop any new or worsening symptoms - Billing Disposition and Condition Condition: GOOD Disposition: Home
== END 2018-05-29 00:28 | disposition home or self-care (01) ==
LOC: ED 21:32
DX: S99.922A Unspecified injury of left foot, initial encounter (principal); X58.XXXA Exposure to other specified factors, initial encounter; Y92.9 Unspecified place or not applicable
CPT/HCPCS: 99282

== ENCOUNTER 2018-08-02 23:04 | Emergency (ER) | payer OTHER ==
[2018-08-02 23:09] VITALS: BP 136/91
--- OUTSIDE RECORDS SUMMARY | 2018-08-02 23:16 | XMS REPORT | Continuity of Care Document ---
:1995 External Reference #:[id number] Author Name Nasra Queen Care Team Providers Name Role Phone Maryanne Silva M.D. Primary Care Physician Unavailable Payers Date Identification Numbers Payment Provider Subscriber Policy Number: [id number] [place] Jayde Casey PayID: [id number] [address] [address] [place] [address] Onset: 2018 Policy Number: [id number] [employer] Jean Andres PayID: [id number] [place] [address] Advance Directives Description No Information Available Problems Date Description Provider Status Onset: 09/21/2017 Cervicovaginal cytology: Low Diana Fregoso grade squamous intraepithelial AyeFACP lesion Onset: 04/12/2015 Obstructive sleep apnea syndrome Roland Wilkins M.D. Active Onset: 04/12/2015 Gastroesophageal reflux disease Roland Wilkins M.D. Active Onset: 11/02/2015 Lactose intolerance Diana Fregoso M.D.FACP Onset: 03/20/2016 Exercise-induced asthma Diana Fregoso M.D.,FACP Onset: 06/11/2018 Closed fracture of phalanx of Hank Hammond MD Active foot Onset: 07/24/2016 Vaginitis Douglas Collins NP Inactive Inactive: 11/20/2016 Family History Date Family Member(s) Observation Comments General Hypercholesterolemia mother General Hypertension mother/ father General Angina mother General Diabetes mother, maternal grandmother General Stroke mother : (age Father due to Prostate cancer 50 Years) Mother TIA Mother Diabetes Mother Heart disease Social History Type Date Description Comments Sex Unknown Marital Status Significant Other Lives With Mother Lives With Male Partner 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 [employer] Tobacco Use Start: Unknown Never Smoked Cigarettes Smoking Status Reviewed: 07/30/18 Never Smoked Cigarettes ETOH Use 11/02/2015 Rarely consumes alcohol Tobacco Use Start: Unknown Patient has never smoked Recreational Drug Use Denies Drug Use Exercise Type/Frequency Does not exercise Allergies, Adverse Reactions, Alerts Date Description Reaction Status Severity Comments 04/12/2015 Ibuprofen vomiting Active Mild 11/02/2015 NSAIDs vomiting Active 11/17/2013 NKDA Inactive Medications Medication Date Status Form Strength Qnty SIG Indications Ordering Provider Mucinex 07/28 Active Tablets ER 600mg 30tab 1 by mouth R05 Zsofi 12HR s twice a day KEV Bui Guaifenesin-Code 07/28 Active Solution 100-10mg/ 118ml take 10 R05 Zsofia 5ML milliliters Hao, by mouth CODER every evening with plenty of water as needed for cough for 5 days as needed Diphenhydramine 06/30 Active Capsules 25mg 12cap 1 tab at at s bedtime Silva, every sun MD at bedtime every mon at bedtime Ranitidine HCL 06/30 Active Tablets 150mg 30tab 1 by mouth K21.9 s twice a day Ricardo, as needed for heartburn Propranolol HCL 05/25 Active Tablets 20mg 60tab take one R51 s tablet by Ricardo mouth twice MD a day Frovatriptan 04/26 Active Tablets 2.5mg 9tabs 1 po qd prn Tapan migraine Amee Thompson, (MVA-relate M.D.,FACP d) Ibuprofen 01/07 Active Tablets 600mg 40tab 1 po up to M25.561 Roberto E. s four times Martina, a day M.DIngrid Nizatidine 07/03 Active Capsules 150mg 60cap Take 2 K21.9 s Capsules By Amee Thompson, Mouth Every M.D.,FACP Other Day Alternating With Omeprazole Omeprazole 11/[address] 20mg 30cap 1 by mouth K21.9 s every day MD Ricardo Proair HFA 04/19 Active Aerosol 108(90Bas 1unit 1 puff J45.20 Zsofia e) s every 4 Hao, mcg/Act hours as CODER needed for chest tightness or wheezing Cpap Active every night Unknown at bedtime Fiber-Caps Active Tablets 625mg 1 by mouth every day Venlafaxine HCL Active Tablets 75mg once daily Unknown Zovia 1/35E (28) Active Tablets 1-35mg-mc 28tab 1 by mouth Geovany g s every day Amee Thompson M.D.,FAC Metronidazole Active Cream 0.75% apply two times a day as needed for facial rash Gabapentin Active Capsules 300mg 1po qd Fluticasone 05/07 Hx Suspension 50mcg/Act 16gm take one J06.9 Rachel Propionate puff each MD Bjorn - nostril 06/11 daily Sumatriptan 04/15 Hx Tablets 100mg 14tab use at R51 [facility] s onset of Pachikara Valentina ontiveros M.D. 04/26 ache,october repeat after 2h as needed Propranolol HCL 04/15 Hx Tablets 10mg 60tab 1 tab by R5 Tapan s mouth twice Amee Thompson, - a day Aye,FACP 05/25 Benzonatate 05/25 Hx Capsules 100mg 30cap ( Not Zsofia s Taking) Hao, - take 1 tab CODER 04/26 by mouth three times a day as needed for cough Guaifenesin-Code 05/25 Hx Solution 100-10mg/ 120ml take 10 Zsofia ine 5ML milliliters Hao, - by mouth in CODER 04/14 the evening with plenty of water as needed for cough for 7 days as needed Azithromycin 05/22 Hx Tablets 250mg 6tabs take 2 tabs Zsofia /2016 on day one Hao, - and 1 tabs CODER 05/27 daily for days Fluticasone 05/20 Hx Suspension 50mcg/Act 16gm ( Not J01.90 Zsofia Propionate Taking) 1 Hao, - act each CODER 04/14 nostril twice daily Nasal [place] 12 05/20 Hx Solution 0.05% 30ml ( Not J01.90 Zsofia Taking) 2 Hao, - sprays each CODER 04/14 nostril daily as needed for congestion Ketoconazole 04/14 Hx Cream 2% 60gm apply thin L42 layer Syriac, - topically [employer] 07/24 to affected area twice a day until resolved Tescarlaon Perles 03/20 Hx Capsules 100mg 30cap 1-2 by J45.21 s mouth three Amee Thompson, - times a day M.D.,FAC 04/11 as needed Azithromycin 03/20 Hx Tablets 250mg 6tabs 2 every day J45.21 for 1 day, Amee Thompson, - then 1 M.D.,[facility] 03/25 Melatonin ER 02/25 Hx Tablets ER 3mg 30tab 1-2 tabs po G47.00 s at hs only Syriac, - as needed [employer] 07/24 Meloxicam 11/18 Hx Tablets 7.5mg 30tab 1 by mouth M70.71 s every day Amee Thompson, - as needed M.D.,[facility] 04/07 Lactaid 11/01 Hx Tablets 3000Unit 100ta 1-2 tab E73.9 bs 5x/day w/ Amee Thompson, - dairy as M.D.,[facility] 07/24 Nizatidine 11/01 Hx Capsules 300mg 45cap K21.9 s Amee Thompson, - Deann.D.,[facility] 07/03 Omeprazole 11/[address] 20mg 45cap 1 by mouth K21.9 s every other Amee Thompson, - day M.D.,[facility] 04/26 Levofloxacin 04/12 Hx Tablets 500mg 5tabs 1 tablt by J06.9 mouth every Wilkins, - day M.D. 04/19 Escitalopram 00 Hx Tablets 20mg 30tab 1 by mouth Unknown Oxalate / s every day - 04/12 Norethindrone 00 Hx Tablets 5mg 1 by mouth Unknown Acetate /0000 every day - 11/[address] 20mg 100ca 1 by mouth Unknown /0000 ps every day - 11/01 Medications Administered in Office Medication Date Status Form Strength Qnty SIG Indications Ordering Provider PPD Administered Injection Zsofia 018 KEV Bui Depomedrol Administered Injection Charline 40MG 018 LUZ Wright PPD Administered Injection Gary 017 Aye Gilmore PPD Administered Injection Gary 017 Aye Gilmore PPD Administered Injection Douglas 016 AARON Collins HPV,Unspecifie Administered Injection Unknown d 011 HPV,Unspecifie Administered Injection Unknown d 010 HPV,Unspecifie Administered Injection Unknown d 010 Polio,Unspecif Administered Injection Unknown ied 999 Polio,Unspecif Administered Injection Unknown ied 997 Polio,Unspecif Administered Injection Unknown ied 995 Polio,Unspecif Administered Injection Unknown ied 995 Immunizations CPT Code Status Date Vaccine Reaction Lot # [id number] Given 03/24/2018 Influenza Virus Vaccine, [id number] Quadrivalent, Split, Preservative Free 79879 Given 09/21/2017 Pneumonia Vaccine [id number] 62234 Given 04/14/2017 Influenza Virus Vaccine, no immediate reaction, [id number] Quadrivalent, Split, pt tolerated well Preservative Free 06303 Given 03/20/2016 Influ Virus Vaccine, [id number] Quadrivalent, Split Virus, [place] [address] Given 05/04/2013 Meningitis MCV4 MenACWY Meningococcal Conjugate Vaccine 52525 Given 05/04/2013 Hepatitis A Vaccine Pediatric/Adolescent Dosage 2 Dose Schedule 08956 Given 02/25/2010 Varicella (Chicken Pox) Immunization 08121 Given 02/02/2009 Meningitis MCV4 MenACWY Meningococcal Conjugate Vaccine 18203 Given 02/02/2009 Tdap - Tetanus/Diptheria/Acellular Pertussis 98201 Given 01/25/1999 Measles Mumps And Rubella MMR 49853 Given 11/10/1997 Varicella (Chicken Pox) Immunization 42558 Given 11/17/1996 Measles Mumps And Rubella MMR 25448 Given 1995 Hep B Pediatric/Adolescent 21454 Given 1995 Hep B Pediatric/Adolescent 20469 Given 1995 Hep B Pediatric/Adolescent Vital Signs Date Vital Result Comment 07/30/2018 2:51pm Height 63 inches 5'3" Weight 241.00 lb Respiratory Rate 15 /min Body Temperature 97.8 F Pain Level 0 BMI (Body Mass Index) 42.7 kg/m2 07/28/2018 11:22am Height 63 inches 5'3" Heart Rate 81 /min BP Systolic Sitting 112 mmHg BP Diastolic Sitting 78 mmHg Body Temperature 98.1 F O2 % BldC Oximetry 98 % 07/21/2018 10:17am Height 63 inches 5'3" Weight 241.12 lb Heart Rate 96 /min BP Systolic Sitting 110 mmHg large adult cuff left arm BP Diastolic Sitting 80 mmHg large adult cuff left arm Respiratory Rate 24 /min Body Temperature 96.9 F tymp O2 % BldC Oximetry 97 % at rest on room air BMI (Body Mass Index) 42.7 kg/m2 06/30/2018 1:14pm Height 63 inches 5'3" Weight 240.00 lb Heart Rate 95 /min BP Systolic Sitting 100 mmHg large adult cuff left arm BP Diastolic Sitting 80 mmHg large adult cuff left arm Body Temperature 98.8 F O2 % BldC Oximetry 97 % at rest on room air BMI (Body Mass Index) 42.5 kg/m2 06/11/2018 3:14pm Height 63 inches 5'3" Weight 240.00 lb BP Systolic 122 mmHg BP Diastolic 76 mmHg Pain Level 5 BMI (Body Mass Index) 42.5 kg/m2 05/20/2018 3:06pm Height 63 inches 5'3" Weight 240.00 lb BP Systolic 111 mmHg BP Diastolic 82 mmHg Respiratory Rate 16 /min Pain Level 2 BMI (Body Mass Index) 42.5 kg/m2 05/17/2018 3:51pm Height 63 inches 5'3" Weight 240.25 lb Heart Rate 89 /min BP Systolic 134 mmHg BP Diastolic 90 mmHg Body Temperature 96.9 F O2 % BldC Oximetry 97 % BMI (Body Mass Index) 42.6 kg/m2 05/07/2018 2:51pm Height 63 inches 5'3" Weight 240.50 lb Heart Rate 79 /min BP Systolic 135 mmHg BP Diastolic 87 mmHg Body Temperature 97.7 F O2 % BldC Oximetry 97 % BMI (Body Mass Index) 42.6 kg/m2 04/26/2018 2:52pm Height 63 inches 5'3" Weight 244.00 lb Heart Rate 95 /min BP Systolic Sitting 136 mmHg BP Diastolic Sitting 88 mmHg Body Temperature 98.4 F O2 % BldC Oximetry 97 % BMI (Body Mass Index) 43.2 kg/m2 04/15/2018 4:01pm Height 63 inches 5'3" Weight 244.00 lb Heart Rate 93 /min BP Systolic Sitting 145 mmHg BP Diastolic Sitting 85 mmHg Body Temperature 98.9 F Pain Level 1 O2 % BldC Oximetry 97 % BMI (Body Mass Index) 43.2 kg/m2 04/07/2018 10:20am Height 63 inches 5'3" Weight 239.00 lb Heart Rate 113 /min BP Systolic Sitting 120 mmHg BP Diastolic Sitting 70 mmHg O2 % BldC Oximetry 97 % BMI (Body Mass Index) 42.3 kg/m2 03/24/2018 1:28pm Height 63 inches 5'3" Weight 239.12 lb Heart Rate 97 /min BP Systolic Sitting 116 mmHg BP Diastolic Sitting 80 mmHg O2 % BldC Oximetry 99 % BMI (Body Mass Index) 42.4 kg/m2 03/08/2018 3:04pm Heart Rate 72 /min BP Systolic 124 mmHg BP Diastolic 80 mmHg Body Temperature 99.2 F Pain Level 10 01/21/2018 2:00pm Height 63 inches 5'3" Weight 229.75 lb Heart Rate 80 /min BP Systolic 140 mmHg BP Diastolic 80 mmHg Respiratory Rate 12 /min Pain Level 0 BMI (Body Mass Index) 40.7 kg/m2 01/14/2018 8:24am Height 63 inches 5'3" Weight 234.00 lb Heart Rate 89 /min BP Systolic 114 mmHg BP Diastolic 70 mmHg O2 % BldC Oximetry 98 % BMI (Body Mass Index) 41.4 kg/m2 01/07/2018 11:48am Height 63 inches 5'3" Weight 232.00 lb Heart Rate 97 /min BP Systolic 122 mmHg BP Diastolic 78 mmHg O2 % BldC Oximetry 98 % BMI (Body Mass Index) 41.1 kg/m2 09/21/2017 11:25am Weight 232.00 lb Heart Rate 122 /min BP Systolic Sitting 124 mmHg BP Diastolic Sitting 68 mmHg Body Temperature 96.9 F O2 % BldC Oximetry 96 % 05/20/2017 10:47am Height 63.5 inches 5'3.50" Weight 237.00 lb Heart Rate 106 /min BP Systolic Sitting 122 mmHg BP Diastolic Sitting 80 mmHg Body Temperature 99.2 F O2 % BldC Oximetry 98 % BMI (Body Mass Index) 41.3 kg/m2 04/14/2017 11:17am Height 63.5 inches 5'3.50" Weight 234.44 lb Heart Rate 124 /min BP Systolic 128 mmHg BP Diastolic 84 mmHg Body Temperature 99.3 F O2 % BldC Oximetry 99 % BMI (Body Mass Index) 40.9 kg/m2 11/20/2016 3:06pm Height 63.5 inches 5'3.50" Weight 235.50 lb Heart Rate 101 /min BP Systolic Sitting 136 mmHg BP Diastolic Sitting 80 mmHg Body Temperature 98.4 F O2 % BldC Oximetry 99 % BMI (Body Mass Index) 41.1 kg/m2 07/24/2016 1:45pm Weight 230.00 lb Heart Rate 111 /min BP Systolic Standing 136 mmHg BP Diastolic Standing 90 mmHg Body Temperature 97.9 F O2 % BldC Oximetry 96 % 04/14/2016 11:10am Height 63.5 inches 5'3.50" Weight 220.00 lb Heart Rate 100 /min BP Systolic 120 mmHg BP Diastolic 72 mmHg Body Temperature 98.7 F O2 % BldC Oximetry 99 % BMI (Body Mass Index) 38.4 kg/m2 04/11/2016 2:11pm Weight 221.25 lb Heart Rate 100 /min BP Systolic Sitting 110 mmHg BP Diastolic Sitting 68 mmHg Body Temperature 98.4 F O2 % BldC Oximetry 99 % 03/20/2016 1:42pm Height 63.5 inches 5'3.50" Weight 220.00 lb Heart Rate 100 /min BP Systolic Sitting 130 mmHg BP Diastolic Sitting 88 mmHg Body Temperature 98.6 F O2 % BldC Oximetry 99 % BMI (Body Mass Index) 38.4 kg/m2 02/26/2016 1:38pm Weight 215.38 lb Heart Rate 73 /min BP Systolic Sitting 120 mmHg BP Diastolic Sitting 90 mmHg Body Temperature 97.9 F O2 % BldC Oximetry 98 % 02/04/2016 2:27pm Weight 214.00 lb Heart Rate 95 /min BP Systolic Sitting 124 mmHg BP Diastolic Sitting 74 mmHg O2 % BldC Oximetry 98 % 11/19/2015 1:50pm Height 63.5 inches 5'3.50" Weight 213.00 lb Heart Rate 78 /min BP Systolic Sitting 116 mmHg BP Diastolic Sitting 74 mmHg Body Temperature 97.9 F O2 % BldC Oximetry 98 % BMI (Body Mass Index) 37.1 kg/m2 11/02/2015 9:41am Height 63.5 inches 5'3.50" Weight 214.00 lb Heart Rate 84 /min BP Systolic Sitting 142 mmHg BP Diastolic Sitting 88 mmHg Respiratory Rate 14 /min Body Temperature 98.8 F BMI (Body Mass Index) 37.3 kg/m2 05/07/2015 4:12pm Height 63.5 inches 5'3.50" Weight 210.00 lb Heart Rate 105 /min BP Systolic Sitting 122 mmHg BP Diastolic Sitting 78 mmHg Body Temperature 97.4 F O2 % BldC Oximetry 98 % BMI (Body Mass Index) 36.6 kg/m2 04/19/2015 10:43am Height 63.5 inches 5'3.50" Weight 208.50 lb Heart Rate 84 /min BP Systolic Sitting 122 mmHg BP Diastolic Sitting 72 mmHg Respiratory Rate 16 /min Body Temperature 98.2 F tympanic O2 % BldC Oximetry 97 % Ra BMI (Body Mass Index) 36.4 kg/m2 04/12/2015 10:45am Height 63.5 inches 5'3.50" Weight 212.38 lb Heart Rate 74 /min BP Systolic Sitting 112 mmHg BP Diastolic Sitting 72 mmHg Body Temperature 98.8 F O2 % BldC Oximetry 95 % BMI (Body Mass Index) 37.0 kg/m2 11/17/2013 1:57pm Height 63 inches 5'3" Weight 224.00 lb [...] % Weight Percentile >97th Results Test Date Facility Test Result H/L Range Note Laboratory test [employer] In House Influenza A/B Neg A - Neg finding 9 Rapid B Laboratory test [facility] Helico Pylori Negative Negative 1 finding [address] [place] [address] [phone] Lipid Profile [facility] Triglycerides 105 mg/dL 2 (Trig/Chol/HDL) [address] [place] [address] [phone] Cholesterol 188 mg/dL 3 HDL Cholesterol 56.7 mg/dL 4 LDL Cholesterol 110 mg/dL 5 Laboratory test 01/08/2018 [facility] TSH (Thyroid 2.03 mcIU/mL N 0.34-5.60 [address] Stim Horm) [place] [address] [phone] Glucose 89 mg/dL N 70-100 7 Laboratory test 06/05/2017 [facility] Stool Culture SEE RESULT [address] [place] [address] [phone] Fecal Lactoferrin (Stool WBC) SEE RESULT BELOW 9 Urinalysis Profile 06/05/2017 [facility] Urine Color Yellow [address] [place] [address] [phone] Urine Appearance Cloudy Urine Specific [place] 1.034 High 1.010-1.030 Urine pH 5.0 N 5-9 Urine Urobilinogen Negative Negative Urine Ketones 1+ Abnormal Negative Urine Protein Negative Negative Urine Leukocytes Trace Abnormal Negative Urine Blood 2+ Abnormal Negative Urine Nitrite Negative Negative Urine Bilirubin Negative Negative Urine Glucose Negative Negative Urine White Blood Cell Trace(0-5/hpf) Absent Urine Red Blood Cell Trace(0-2/hpf) Absent Urine Bacteria Absent Absent Urine Squamous Epithelial Cell Present Abnormal Absent Urine Culture And 06/05/2017 [facility] Urine SEE RESULT [address] [place] [address] [phone] Laboratory test 06/04/2017 [facility] Lactic Acid 2.3 mmol/L High 0.5-2 [address]0 [place] [address] [phone] CBC Auto Diff 06/04/2017 [facility] White Blood 18.8 High 3.5- [address] Count 10^3/uL 0.8 [place] [address] [phone] Red Blood Count 5.01 10^6/uL N 4.0-5.4 Hemoglobin 13.9 g/dL N 12.0-16.0 Hematocrit 42 % N 35-47 Mean Corpuscular Volume 83 fL N 80-97 Mean Corpuscular Hemoglobin 28 pg N 27-31 Mean Corpuscular HGB Conc 33 g/dL N 31-36 Red Cell Distribution Width 14 % N 10.5-15 Platelet Count 280 10^3/uL N 150-450 Mean Platelet Volume 9 um3 N 7.4-10.4 Abs Neutrophils 16.9 10^3/uL High 1.5-7.7 Abs Lymphocytes 1.1 10^3/uL N 1.0-4.8 Abs Monocytes 0.7 10^3/uL N 0-0.8 Abs Eosinophils 0.1 10^3/uL N 0-0.6 Abs Basophils 0 10^3/uL N 0-0.2 Abs Nucleated RBC 0 10^3/uL Granulocyte % 89.9 % High 38-83 Lymphocyte % 5.8 % Low 25-47 Monocyte % 3.8 % N 1-9 Eosinophil % 0.3 % N 0-6 Basophil % 0.2 % N 0-2 Nucleated Red Blood Cells % 0 Comp Metabolic Panel 06/04/2017 [facility] Sodium 137 mmol/L N 133-[address] [place] [address] [phone] Potassium 3.9 mmol/L N 3.5-5.0 Chloride 101 mmol/L N 101-111 Co2 Carbon Dioxide 23 mmol/L N 22-32 Anion Gap 13 mmol/L High 2-11 Glucose 117 mg/dL High 70-100 Blood Urea Nitrogen 12 mg/dL N 6-24 Creatinine 0.61 mg/dL N 0.51-0.95 BUN/Creatinine Ratio 19.7 N 8-20 Calcium 10.0 mg/dL N 8.6-10.3 Total Protein 8.4 g/dL N 6.4-8.9 Albumin 4.4 g/dL N 3.2-5.2 Globulin 4.0 g/dL N 2-4 Albumin/Globulin Ratio 1.1 N 1-3 Total Bilirubin 0.40 mg/dL N 0.2-1.0 Alkaline Phosphatase 68 U/L N 34-104 Alt 17 U/L N 7-52 Ast 12 U/L Low 13-39 Egfr Non- 122.6 >60 Egfr 157.7 >60 12 Laboratory test 06/04/2017 [facility] Magnesium 1.6 mg/dL Low 1.9-2.[address] [place] [address] [phone] Lipase 17 U/L N 11.0-82.0 C Reactive Protein 23.57 mg/L High < 5.00 13 HCG < 0.60 mIU/mL 14 GC/Chlamydia 11/20/2016 [facility] Chlamydia Negative N Negative Amplified Rna [address] trachomatis Rna [place], [place] [id number] [phone] Neisseria gonorrhoeae (GC) Rna Negative N Negative Laboratory test 11/20/2016 [facility] Cytology SEE RESULT [address] [place] [address] [phone] Laboratory test 07/24/2016 [facility] Gardnerella/Yeast: SEE RESULT [address] [place] [address] [phone] Laboratory test 02/08/2016 [facility] TSH (Thyroid Stim 5.58 N 0.34- [address] Horm) mcIU/mL 5.60 [place], [place] [id number] [phone] Lipid Profile 02/08/2016 [facility] Triglycerides 153 mg/dL N 18 (Trig/Chol/HDL) [address] [place], [place] [address] [phone] Cholesterol 172 mg/dL N 19 HDL Cholesterol 51.8 mg/dL N 20 LDL Cholesterol 90 mg/dL N 21 Laboratory test finding 02/08/2016 [facility] Glucose 99 mg/dL N 70-[address] [place], [place] [address] [phone] Cortisol 19.70 ?g/dL N 23 Laboratory test 02/04/2016 [facility] Cytology SEE RESULT BELOW [address] [place] [address] [phone] 1 Test Performed by: [facility] [address] [place] [address] 2 Desirable: <150 Borderline High: 150-199 High: 200-499 Very High: >500 3 Desirable: <200 Borderline High: 200-239 High: >239 4 Low: <40 Desirable: 40-60 High: >60 5 Desirable: <100 Near Optimal: 100-129 Borderline High: 130-159 High: 160-189 Very High: >189 6 FASTING 10 HOUR 7 FASTING 10 HOUR 8 SEE RESULT BELOW Name: JAYDE CASEY : [address]: Germain Tejeda MD Acct: [id number] Unit: [id number] AGE: 22 Location: ED Re06/04/17 SEX: F Status: DEP ER SPEC: [id number] YOLA: 06/05/[address]: Maddy CISNEROS REQ: [id number] RECD: 06/05/17 STATUS: RES ABDIAS DR: Tapan Tejeda MD _ SOURCE: STOOL SPDESC: ORDERED: Stool Culture Procedure Result Reported Site Stool Culture Final 06/07/17- 1131 ML Result No enteric pathogens isolated No growth of normal enteric glenn Testing for Salmonella, Shigella, Aeromonas, Plesiomonas, Yersinia and Campylobacter are included in a Stool Culture. Vibrio spp not routinely tested for in a stool culture. If testing is desired, please request specifically when placing test order. Sensitivities not routinely performed on stool isolates, as antibiotics may prolong the carriage rate of bacteria. Please contact the microbiology lab if sensitivities are required. Stool Specimen Description Final 06/05/17- 0131 ML Stool Color Brown Stool Form Nonformed Stool Consistency Watery Shiga Toxin 1 2 PENDING * ML - MAIN LAB ([facility]) . END OF REPORT * ML=Testing performed at Main Lab DEPARTMENT OF PATHOLOGY, [address] [place] [address] René Corrigan M.D. Director [facility] # [id number] 9 SEE RESULT BELOW Name: JAYDE CASEY : [address]: Germain Tejeda MD Acct: [id number] Unit: [id number] AGE: 22 Location: ED Re06/04/17 SEX: F Status: REG ER SPEC: [id number] YOLA: 06/05/[address]: Maddy CISNEROS REQ: [id number] RECD: 06/05/17 STATUS: JENNIFER CALERO DR: Tapan Tejeda MD _ SOURCE: STOOL SPDESC: ORDERED: Fecal Lactoferr Procedure Result Reported Site Stool Specimen Description Final 06/05/17- 130 ML Stool Color Brown Stool Form Nonformed Stool Consistency Watery Fecal Lactoferrin (Stool WBC) Final 06/05/17- 0156 ML Fecal Lactoferrin Positive by Immunoassay TEST LIMITATIONS: Assay detects elevated levels of lactoferrin released from fecal leukocytes as a marker of intestinal inflammation. The test may not be appropriate in immunocompromised persons. Fecal samples from breast fed infants should not be used with this assay. * ML - MAIN LAB ([facility]) . END OF REPORT * ML=Testing performed at Main Lab DEPARTMENT OF PATHOLOGY, [address] [place] [address] René Corrigan M.D. Director [facility] # [id number] 10 SEE RESULT BELOW Name: JAYDE CASEY : [address]: Germain Tejeda MD Acct: [id number] Unit: [id number] AGE: 22 Location: ED Re06/04/17 SEX: F Status: DEP ER SPEC: [id number] YOLA: 06/05/[address]: Maddy CISNEROS REQ: [id number] RECD: 06/05/17 STATUS: JENNIFER CALERO DR: Tapan Tejeda MD _ SOURCE: URINE SPDESC: ORDERED: Urine Culture Procedure Result Reported Site Urine Culture Final 06/06/17- 0854 ML No growth of clinically significant organisms * ML - MAIN LAB ([facility]) . END OF REPORT * ML=Testing performed at Main Lab DEPARTMENT OF PATHOLOGY, [address] [place] [address] René Corrigan M.D. Director [facility] # [id number] 11 Critical Result LACT:2.3 Called to [id number] at: 22:46:30 by:[id number] Read back by:[id number] [facility] Severe Sepsis and Septic Shock Management Bundle Measure requires all lactic acids initially measuring >2.0 mmol/L be repeated. 12 Because ethnic data is not always readily available, this report includes an eGFR for both -Americans and non- Americans. The National Kidney Disease Education Program (NKDEP) does not endorse the use of the MDRD equation for patients that are not between the ages of 18 and 70, are , have extremes of body size, muscle mass, or nutritional status, or are non- or non-. According to the National Kidney Foundation, irrespective of diagnosis, the stage of the disease is based on the level of kidney function: Stage Description GFR(mL/min/1.73 m(2)) 1 Kidney damage with normal or decreased GFR 90 2 Kidney damage with mild decrease in GFR 60-89 3 Moderate decrease in GFR 30-59 4 Severe decrease in GFR 15-29 5 Kidney failure <15 (or dialysis) 13 Acute inflammation: >10.00 14 <5.0 Negative 5.0 - 25.0 Indeterminate (Repeat testing recommended after 72 hours) >25.0 Positive Perimenopausal women can display HCG levels of up to 20 mIU/mL 15 SEE RESULT BELOW Name: JAYDE CASEY : [address]: Sabra Thompson MD Acct: [id number] Unit: [id number] AGE: 21 Location: [facility] Re11/20/16 SEX: F Status: REG REF SPEC: [id number] YOLA: 11/20/16-1640 [facility] DR: Tapan Thompson MD REQ: [id number] RECD: 11/20/16 STATUS: SOUT _ ORDERED: TP IMAGE ANAL, UR COORDINATOR PHYS INTERP COMMENTS: [id number] FINAL DIAGNOSIS EPITHELIAL CELL ABNORMALITIES Low grade [...] Signed (signature on file) René Corrigan MD [id number] This Pap test was evaluated with the assistance of the ThinPrep Test Imaging System. Due to cytologic findings at the firing pin gauger microscope, comprehensive manual rescreening by a Geologist may be required. The Pap Smear is [...] performed at Main Lab DEPARTMENT OF PATHOLOGY, [address] [place] [address] René Corrigan M.D. Director [facility] # [id number] 16 SEE RESULT BELOW Name: JAYDE CASEY : [address]: Douglas Collins NP Acct: [id number] Unit: [id number] AGE: 21 Location: [facility] Re07/24/16 SEX: F Status: REG REF SPEC: [id number] YOLA: 07/24/16-[address]: Douglas Collins NP REQ: [id number] RECD: 07/24/16 STATUS: COMP _ SOURCE: VAGINAL SPDESC: ORDERED: Ashlie,Yeast DNA, Trich DNA COMMENTS: [id number] Procedure Result Reported Site Gardnerella/Yeast: Vaginal DNA Final 07/25/16- 1317 ML Organism 1 Negative Gardnerella Organism 2 [...] failure. Trichomonas: Vaginal DNA Probe Final 07/25/16- 1317 ML Organism 1 Negative Trichomonas CONTINUED ON NEXT PAGE * ML=Testing performed at [facility] DEPARTMENT OF PATHOLOGY, [address] [place] [address] René Corrigan M.D. Director [facility] # [id number] Patient: JAYDE CASEY [id number] (Continued) Specimen: [id number] Collected: 07/24/16-1413 Received: 07/24/16-1837 (Continued) Procedure Result Reported Site Trichomonas: Vaginal DNA Probe Final (continued) 07/25/16- 1316 The presence or absence of T. vaginalis cannot be used as a test for therapeutic success or failure. * ML - MAIN LAB ([facility]) . END OF REPORT * ML=Testing performed at Main Lab DEPARTMENT OF PATHOLOGY, [address] [place] [address] René Corrigan M.D. Director [facility] # [id number] 17 FASTING 10 HOUR fasting labs do in Am no later than 8 am 18 Desirable <150 Borderline high 150-199 High 200-499 Very High >500 19 Desirable <200 Borderline high 200-239 High >239 20 Low <40 Desirable: 40-60 High: >60 21 Desirable: <100 mg/dL Near Optimal: 100-129 mg/dL Borderline High: 130-159 mg/dL High: 160-189 mg/dL Very High: >189 mg/dL 22 FASTING 10 HOUR fasting labs do in Am no later than 8 am 23 AM 8.7-22.4 PM <10 24 SEE RESULT BELOW Name: JAYDE CASEY : [address]: Douglas Collins [employer] Acct: [id number] Unit: [id number] AGE: 21 Location: [facility] Re02/04/16 SEX: F Status: REG REF SPEC: [id number] YOLA: 02/04/16-[address]: Douglas Collins [employer] REQ: [id number] RECD: 02/04/16 STATUS: SOUT _ ORDERED: IMAGE ANALYSIS, PAP SM PATH REV COMMENTS: [id number] FINAL DIAGNOSIS EPITHELIAL CELL ABNORMALITIES Low grade [...] was evaluated with the assistance of the BetterCloudPrep Test Imaging System. Due to cytologic findings at the firing pin gauger microscope, comprehensive manual rescreening by a Geologist may be required. The Pap Smear is [...] performed at Main Lab DEPARTMENT OF PATHOLOGY, [address] [place] [address] René Corrigan M.D. Director [facility] # [id number] Procedures Date Code Description Status 01/21/2018 76363 Inject/Drain Joint/Bursa Major W/O US Completed 11/17/2013 89329 EKG Tracing & Interpretation Completed 09/13/2013 65416 EKG, Interpretation Only Completed 05/04/2013 00240 Polysomnography Sleep Staging 4+ Parameters W/Cpap Completed 12/21/2012 06420 Polysomnography Sleep Staging 4+ Parameters Completed Encounters Type Date Location Provider Dx Diagnosis Office Visit 07/21/2018 [facility] Internal Maryanne Silva MD J06.9 Acute upper 10:00a Medicine - [place] infection, unspecified R12 Heartburn Office Visit 06/11/2018 Orthopedic Hank Hammond, S92.415A Nondisp fx of 3:00p Services Of proximal phalanx of C.M.A. left great toe, init Office Visit 05/20/2018 Orthopedic Tesfaye Mosley M22.2x1 Patellofemoral 2:45p Services Of MD Eduardo disorders, right C.M.A. knee M25.561 Pain in right knee Office Visit 05/17/2018 4:00p [facility] Internal Mazin R51 Headache Medicine - [place] [address] Office Visit 05/07/2018 3:00p [facility] Internal Rachel Milan MD J06.9 Acute upper Medicine - respiratory [place] infection, unspecified Office Visit 04/26/2018 3:20p [facility] Internal Tapan Lubin R51 Headache Medicine - [place] [address] Thompson,FACP Rd S06.0x0S Concussion without loss of consciousness, sequela Office Visit 04/15/2018 3:40p [facility] Internal Mazin R51 Headache Azar Gilmore M.D. [address] Office Visit 04/07/2018 10:20a [facility] Internal Roberto Carrasquillo1 Headache Azar Mack M.D. 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 knee S80.211A Abrasion, right knee, initial encounter Office Visit 01/21/2018 2:15p Orthopedic Tesfaye F M25.561 Pain in Services Of Gudelia Clark MD right knee M22.2x1 Patellofemoral disorders, right knee Office Visit 01/14/2018 8:20a [facility] Internal Mazin M25.561 Pain in right Azar Gilmore M.D. knee [address] Office Visit 01/07/2018 11:40a [facility] Internal Mazin M25.561 Pain in right Azar Gilmore M.D. knee [address] Office Visit 09/21/2017 11:00a [facility] Internal Tapan Lubin L03.811 Cellulitis of Azar Thompson M.D.,FACP head [any part, [address] except face] R87.612 Low grade intrepith lesion cyto smr crvx (LGSIL) J45.40 Moderate persistent asthma, uncomplicated Z23 Encounter for immunization Office Visit 05/20/2017 11:00a [facility] Internal Esther Bui, J01.90 Acute sinusitis, Medicine - [facility] unspecified [address] R05 Cough J01.10 Acute frontal sinusitis, unspecified J01.00 Acute maxillary sinusitis, unspecified Office Visit 04/14/2017 11:20a [facility] Internal Mazin Gilmore, Z00.01 Encounter for Medicine - MCharley general adult [address] medical exam w abnormal findings Z23 Encounter for immunization Z11.1 Encounter for screening for respiratory tuberculosis Office Visit 11/20/2016 3:40p [facility] Internal Tapan Lubin R87.618 Oth abnormal Azar Thompson M.D.,FACP cytolog findings [address] on specimens from cervix uteri G47.00 Insomnia, unspecified E66.01 Morbid (severe) obesity due to excess calories E03.9 Hypothyroidism, unspecified Office Visit 07/24/2016 1:40p [facility] Internal Douglas Collins, N76.0 Acute vaginitis Medicine - [place] [address] Office Visit 04/14/2016 11:20a [facility] Internal Douglas Collins, L42 Pityriasis rosea Medicine - [place] [address] Z11.1 Encounter for screening for respiratory tuberculosis Office Visit 04/11/2016 2:20p [facility] Internal Douglas Collins, Z02.1 Encounter for Medicine - [employer] pre-employment [address] examination Z11.1 Encounter for screening for respiratory tuberculosis E66.9 Obesity, unspecified Office Visit 03/20/2016 1:40p [facility] Internal Tapan Lubin J45.21 Mild intermittent Azar Thompson M.D.,FACP asthma with [address] (acute) exacerbation Z23 Encounter for immunization Office Visit 02/26/2016 1:40p [facility] Internal Douglas Collins, G47.00 Insomnia, Medicine - [employer] unspecified [address] Office Visit 02/04/2016 1:40p [facility] Internal Douglas Collins, 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) [address] (routine) w/o abn findings E66.9 Obesity, unspecified Office Visit 11/19/2015 1:40p [facility] Internal Douglas Collins, M70.71 Other bursitis of Medicine - [employer] hip, right hip [address] Office Visit 11/02/2015 9:20a [facility] Internal Tapan Lubin E73.9 Lactose Medicine - Jay, intolerance, [address] MCharley,FACP unspecified K21.9 Gastro-esophageal reflux disease without esophagitis E66.09 Other obesity due to excess calories M25.551 Pain in right hip Office Visit 05/07/2015 4:00p [facility] Internal Roland Wilkins, E73.8 Other lactose Medicine - [place] M.D. intolerance Rd E73.9 Lactose intolerance, unspecified Office Visit 04/19/2015 11:00a [facility] Internal Douglas Collins, J20.9 Acute bronchitis, Medicine - [place] [employer] unspecified Rd R05 Cough R06.2 Wheezing M54.5 Low back pain Office Visit 04/12/2015 11:00a [facility] Internal Roland Wilkins, J06.9 Acute upper Medicine - [place] M.DIn[address] respiratory [address] infection, unspecified K21.9 Gastro-esophageal reflux disease without esophagitis G47.33 Obstructive sleep apnea (adult) (pediatric) E66.09 Other obesity due to excess calories Office Visit 11/17/2013 2:00p [facility] Misbah Lubin 780.79 [facility] Aye Dillard Fatigue Other 327.23 Obstructive Sleep Apnea Adult & Pediatric Office Visit 12/30/2012 2:55p Sleep Disorder Josiah RODGERS 327.23 [facility] Aye [place] Apnea Adult & Pediatric Office Visit 12/02/2012 3:09p Sleep Disorder Josiah RODGERS 327.23 [facility] [place] Apnea Adult & Pediatric 

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
--- OUTSIDE RECORDS SUMMARY | 2018-08-02 23:17 | XMS REPORT | Continuity of Care Document ---
:1995 External Reference #:[id number] Author Name Jane Bunn Care Team Providers Name Role Phone Maryanne Silva M.D. Primary Care Physician Unavailable Payers Type Date Identification Numbers Payment Provider Subscriber Policy Number: [id number] [place] Medicaid Jayde Casey PayID: [id number] [address] [address] [place] [address] Onset: 2018 Policy Number: [id number] Travelers Jean Andres PayID: [id number] [place] [address] Advance Directives Description No Information Available Problems Date Description Provider Status Onset: 09/21/2017 Cervicovaginal cytology: Low Diana Fregoso grade squamous intraepithelial AyeFACP lesion Onset: 04/12/2015 Obstructive sleep apnea syndrome Roland Wilkins M.D. Active Onset: 04/12/2015 Gastroesophageal reflux disease Roland Wilkins M.D. 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 s four times Martnia, a day Aye Nizatidine 07/03 Active Capsules 150mg 60cap Take 2 K21.9 s Capsules Amee Thompson, By Mouth M.DIngrid,FACP Every Other Day Alternatin g With Omeprazole Omeprazole 11/[address] 20mg 45cap Take 1 K21.9 s Capsule By Amee Thompson, Mouth Once M.DIngrid,FACP Every Other Day Proair HFA 04/19 Active Aerosol 108(90Bas 1unit 1 puff J45.20 Zsofi e) s every 4 Hao, mcg/Act hours as LOCKSTITCH CUP SETTER needed for chest tightness or wheezing Cpap 00 Active every Unknown /0000 night at bedtime Fiber-Caps Active Tablets 625mg [...] puff each MD Bjorn - nostril 06/11 Sumatriptan 04/15 Hx Tablets 100mg 14tab use at R51 [facility] s onset of Deirdre, - head M.D. 04/26 ache,october repeat after 2h as needed Propranolol HCL 04/15 Hx Tablets 10mg 60tab 1 tab by R51 [place] /2017 s mouth Amee Thompson, - twice a M.D.,FACP Benzonatate 05/25 Hx Capsules 100mg 30cap ( Not Zsofia s Taking) Hao, - take 1 tab LOCKSTITCH CUP SETTER 04/26 by mouth three times a day as needed for cough Guaifenesin-Code 05/25 Hx Solution 100-10mg/ 120ml take 10 ofia 5ML milliliter Hao, - s by mouth LOCKSTITCH CUP SETTER 04/14 in the evening with plenty of water as needed for cough for 7 days as needed Azithromycin 05/22 Hx Tablets 250mg 6tabs take 2 Zsofi tabs on Hao, - day one LOCKSTITCH CUP SETTER 05/27 and 1 tabs /2016 daily for 4 days Fluticasone 05/20 Hx Suspension 50mcg/Act 16gm ( Not J01.90 Zsofia Propionate Taking) 1 Hao, - act each LOCKSTITCH CUP SETTER 04/14 nostril /2017 twice daily Nasal Porter 12 05/20 Hx Solution 0.05% 30ml ( Not J01.90 Zsofia Hour Taking) 2 Hao, - sprays LOCKSTITCH CUP SETTER 04/14 each nostril 2x daily as needed for congestion Ketoconazole 04/14 Hx Cream 2% 60gm apply thin L42 layer Dennis, GASATERIA ATTENDANT - topically 07/24 to affected area twice a day until resolved Ronni Eubanks 03/20 Hx Capsules 100mg 30cap 1-2 by J45.21 s mouth DIngrid Thompson, - three M.D.,FACP 04/11 times a day as needed Azithromycin 03/20 Hx Tablets 250mg 6tabs 2 every J45.21 day for 1 D. Jay, - day, then M.D.,FACP 03/25 1 day Melatonin ER 02/25 Hx Tablets ER 3mg 30tab 1-2 tabs G47.00 s po at hs AARON Collins - only as 07/24 Meloxicam 11/18 Hx Tablets 7.5mg 30tab 1 by mouth M70.71 s every day DIngrid Thompson, - as needed M.D.,[facility] 04/07 Lactaid 11/01 Hx Tablets 3000Unit 100ta 1-2 tab E73.9 bs 5x/day w/ D. Jay, - dairy as M.D.,[facility] 07/24 needed Nizatidine 11/01 Hx Capsules 300mg 45cap K21.9 s Amee Thompson, - M.D.,[facility] 07/03 Omeprazole 11/[address] 20mg 45cap 1 by mouth K21.9 s every D. Jay, - other day M.D.,[facility] 04/26 Levofloxacin 04/12 Hx Tablets 500mg 5tabs [...] Ordering Provider PPD Administered Injection Zsofia 018 Hao, KEV Depomedrol Administered Injection Charline 40MG 018 LUZ Wright PPD Administered Injection Chamberino 017 Aye Gilmore PPD Administered Injection Maizn 017 Aye Gilmore PPD Administered Injection Douglas 016 Dennis, GASATERIA ATTENDANT HPV,Unspecifie Administered Injection Unknown d 011 HPV,Unspecifie Administered Injection Unknown d 010 HPV,Unspecifie Administered Injection Unknown d 010 Polio,Unspecif Administered Injection Unknown ied 999 Polio,Unspecif Administered Injection Unknown ied 997 Polio,Unspecif Administered Injection Unknown ied 995 Polio,Unspecif Administered Injection Unknown ied 995 Immunizations CPT Code Status Date Vaccine Reaction Lot # [id number] Given 03/24/2018 Influenza Virus Vaccine, [id number] Quadrivalent, Split, Preservative Free 48202 Given 09/21/2017 Pneumonia Vaccine [id number] 38081 Given 04/14/2017 Influenza Virus Vaccine, no immediate reaction, [id number] Quadrivalent, Split, pt tolerated well Preservative Free 99319 Given 03/20/2016 Influ Virus Vaccine, [id number] Quadrivalent, Split Virus, [place] [address] Given 05/04/2013 Meningitis MCV4 MenACWY Meningococcal Conjugate Vaccine 17403 Given 05/04/2013 Hepatitis A Vaccine Pediatric/Adolescent Dosage 2 Dose Schedule 75472 Given 02/25/2010 Varicella (Chicken Pox) Immunization 19530 Given 02/02/2009 Meningitis MCV4 MenACWY Meningococcal Conjugate Vaccine 01997 Given 02/02/2009 Tdap - Tetanus/Diptheria/Acellular Pertussis 05102 Given 01/25/1999 Measles Mumps And Rubella MMR 27885 Given 11/10/1997 Varicella (Chicken Pox) Immunization 57674 Given 11/17/1996 Measles Mumps And Rubella MMR 99155 Given 1995 Hep B Pediatric/Adolescent 05302 Given 1995 Hep B Pediatric/Adolescent 88004 Given 1995 Hep B Pediatric/Adolescent Vital Signs Date Vital Result Comment 06/30/2018 1:14pm Height 63 inches 5'3" Weight [...] Date Facility Test Result H/L Range Note Lipid Profile 01/08/2018 [facility] Triglycerides 105 mg/dL 1 (Trig/Chol/HDL) [address] [place] [address] [phone] Cholesterol 188 mg/dL 2 HDL Cholesterol 56.7 mg/dL 3 LDL Cholesterol 110 mg/dL 4 Laboratory test 01/08/2018 [facility] TSH (Thyroid 2.03 mcIU/mL N 0.34-5.60 [address] Stim Horm) [place] [address] [phone] Glucose 89 mg/dL N 70-100 6 Laboratory test 06/05/2017 [facility] Stool Culture SEE RESULT [address] [place] [address] [phone] Fecal Lactoferrin (Stool WBC) SEE RESULT BELOW 8 Urinalysis Profile 06/05/2017 [facility] Urine Color Yellow [address] [place] [address] [phone] Urine Appearance Cloudy Urine Specific Oran 1.034 High 1.010-1.030 Urine pH 5.0 N [...] Present Abnormal Absent Urine Culture And 06/05/2017 [facility] Urine SEE RESULT [address] [place] [address] [phone] Laboratory test 06/04/2017 [facility] Lactic Acid 2.3 mmol/L High 0.5-2 [address] [place] [address] [phone] CBC Auto Diff 06/04/2017 [facility] White Blood 18.8 High 3.5- [address] Count 10^3/uL 0.8 [place] [address] [phone] Red Blood Count 5.01 10^6/uL N 4.0-5.4 [...] Cells % 0 Comp Metabolic Panel 06/04/2017 [facility] Sodium 137 mmol/L N 133-[address] [place] [address] [phone] Potassium 3.9 mmol/L N 3.5-5.0 Chloride 101 [...] Egfr Non- 122.6 >60 Egfr 157.7 >60 11 Laboratory test 06/04/2017 [facility] Magnesium 1.6 mg/dL Low 1.9-2.[address] [place] [address] [phone] Lipase 17 U/L N 11.0-82.0 C Reactive Protein 23.57 mg/L High < 5.00 12 HCG < 0.60 mIU/mL 13 GC/Chlamydia 11/20/2016 [facility] Chlamydia Negative N Negative Amplified Rna [address] [place] [address] [phone] Neisseria gonorrhoeae (GC) Rna Negative N Negative Laboratory test 11/20/2016 [facility] Cytology SEE RESULT [address] [place] [address] [phone] Laboratory test 07/24/2016 [facility] Gardnerella/Yeast: SEE RESULT [address] [place] [address] [phone] Laboratory test 02/08/2016 [facility] TSH (Thyroid Stim 5.58 N 0.34- [address] Horm) mcIU/mL 5.60 [place] [address] [phone] Lipid Profile 02/08/2016 [facility] Triglycerides 153 mg/dL N 17 (Trig/Chol/HDL) [address] [place] [address] [phone] Cholesterol 172 mg/dL N 18 HDL Cholesterol 51.8 mg/dL N 19 LDL Cholesterol 90 mg/dL N 20 Laboratory test finding 02/08/2016 [facility] Glucose 99 mg/dL N 70-100 21 [address] [place] [address] [phone] Cortisol 19.70 ?g/dL N 22 Laboratory test 02/04/2016 [facility] Cytology SEE RESULT BELOW 23 finding [address] [place] [address] [phone] 1 Desirable: <150 Borderline High: 150-199 High: 200-499 Very High: >500 2 Desirable: <200 Borderline High: 200-239 High: >239 3 Low: <40 Desirable: 40-60 High: >60 4 Desirable: <100 Near Optimal: 100-129 Borderline High: 130-159 High: 160-189 Very High: >189 5 FASTING 10 HOUR 6 FASTING 10 HOUR 7 SEE RESULT BELOW Name: KEVENJAYDE : [address]: Germain Tejeda MD Acct: [id number] Unit: [id number] AGE: 22 Location: ED Re06/04/17 SEX: F Status: DEP ER SPEC: [id number] YOLA: 06/05/17-[address]: Maddy CISNEROS REQ: [id number] RECD: 06/05/17 STATUS: RES ABDIAS DR: Tapan Tejeda MD _ SOURCE: STOOL [facility]: ORDERED: Stool Culture Procedure Result Reported [...] 2 PENDING * ML - MAIN LAB ([facility]) . END OF REPORT * ML=Testing performed at Main Lab DEPARTMENT OF PATHOLOGY, [address] [place] [address] René Corrigan M.D. Director [facility] # [id number] 8 SEE RESULT BELOW Name: KEVENJAYDE : [address]: Germain Tejeda MD Acct: [id number] Unit: [id number] AGE: 22 Location: ED Re06/04/17 SEX: F Status: REG ER SPEC: [id number] YOLA: 06/05/[address]: Maddy CISNEROS REQ: [id number] RECD: 06/05/17 STATUS: JENNIFER CALERO DR: Tapan [...] at Main Lab DEPARTMENT OF PATHOLOGY, [address] [place] [address] René Corrigan M.D. Director [facility] # [id number] 9 SEE RESULT BELOW Name: JAYDE CASEY : [address]: Germain Tejeda MD Acct: [id number] Unit: [id number] AGE: 22 Location: ED Re06/04/17 SEX: F Status: DEP ER SPEC: [id number] YOLA: 06/05/[address]: Maddy CISNEROS REQ: [id number] RECD: 06/05/17 STATUS: JENNIFER CALERO DR: Tapan Tejeda MD _ SOURCE: URINE SPDESC: ORDERED: Urine Culture Procedure Result Reported Site Urine Culture Final 06/06/17 7054 ML No growth of clinically significant organisms * ML - MAIN LAB ([facility]) . END OF REPORT * ML=Testing performed at Main Lab DEPARTMENT OF PATHOLOGY, [address] [place] [address] René Corrigan M.D. Director [facility] # [id number] 10 Critical Result LACT:2.3 Called to [id number] at: 22:46:30 by:[id number] Read back by:CAN GARAY Severe Sepsis and Septic Shock Management Bundle Measure requires all lactic acids initially measuring >2.0 mmol/L be repeated. 11 Because ethnic data is not always readily [...] 15-29 5 Kidney failure <15 (or dialysis) 12 Acute inflammation: >10.00 13 <5.0 Negative 5.0 - 25.0 Indeterminate (Repeat testing recommended after 72 hours) >25.0 Positive Perimenopausal women can display HCG levels of up to 20 mIU/mL 14 SEE RESULT BELOW Name: JAYDE CASEY : [address]: Sabra Thompson MD Acct: [id number] Unit: [id number] AGE: 21 Location: [facility] Re11/20/16 SEX: F Status: REG REF SPEC: [id number] YOLA: 11/20/16-[address]: Tapan Thompson MD REQ: [id number] RECD: 11/20/16 STATUS: SOUT _ ORDERED: TP IMAGE ANAL, BRAKE LINING CURER PHYS INTERP COMMENTS: [id number] FINAL DIAGNOSIS EPITHELIAL CELL ABNORMALITIES Low grade [...] was evaluated with the assistance of the [employer] Test Imaging System. Due to cytologic findings at the radar engineering teacher microscope, comprehensive manual rescreening by a Enologist may be required. The Pap Smear is [...] at Main Lab DEPARTMENT OF PATHOLOGY, [address] [place] [address] René Corrigan M.D. Director [facility] # [id number] 15 SEE RESULT BELOW Name: JAYDE CASEY : [address]: Douglas Collins GASATERIA ATTENDANT Acct: [id number] Unit: [id number] AGE: 21 Location: [facility] Re07/24/16 SEX: F Status: REG REF SPEC: [id number] YOLA: 07/24/16-1414 [facility] DR: Douglas Collins GASATERIA ATTENDANT REQ: [id number] RECD: 07/24/16 STATUS: COMP _ SOURCE: VAGINAL SPDESC: ORDERED: Ashlie,Yeast DNA, Trich DNA COMMENTS: [id number] Procedure Result Reported Site Gardnerella/Yeast: Vaginal DNA [...] at Main Lab DEPARTMENT OF PATHOLOGY, [address] [place] [address] René Corrigan M.D. Director [facility] # [id number] Patient: JAYDE CASEY [id number] (Continued) Specimen: [id number] Collected: 07/24/16 Received: 07/24/16 (Continued) Procedure Result Reported Site Trichomonas: Vaginal DNA Probe Final (continued) 07/25/161316 The presence or absence of T. vaginalis cannot be used as a test for therapeutic success or failure. * ML - MAIN LAB ([facility]) . END OF REPORT * ML=Testing performed at Main Lab DEPARTMENT OF PATHOLOGY, [address] [place] [address] René Corrigan M.D. Director [facility] # [id number] 16 FASTING 10 HOUR fasting labs do in Am no later than 8 am 17 Desirable <150 Borderline high 150-199 High 200-499 Very High >500 18 Desirable <200 Borderline high 200-239 High >239 19 Low <40 Desirable: 40-60 High: >60 20 Desirable: <100 mg/dL Near Optimal: 100-129 mg/dL Borderline High: 130-159 mg/dL High: 160-189 mg/dL Very High: >189 mg/dL 21 FASTING 10 HOUR fasting labs do in Am no later than 8 am 22 AM 8.7-22.4 PM <10 23 SEE RESULT BELOW Name: JAYDE CASEY : [address]: Douglas Collins NP Acct: [id number] Unit: [id number] AGE: 21 Location: [facility] Re02/04/16 SEX: F Status: REG REF SPEC: [id number] YOLA: 02/04/16-9 [facility] DR: Douglas Collins GASATERIA ATTENDANT REQ: [id number] RECD: 02/04/16 STATUS: SOUT _ ORDERED: IMAGE ANALYSIS, PAP SM PATH REV COMMENTS: [id number] FINAL DIAGNOSIS EPITHELIAL CELL ABNORMALITIES Low grade [...] was evaluated with the assistance of the [employer] Test Imaging System. Due to cytologic findings at the radar engineering teacher microscope, comprehensive manual rescreening by a Enologist may be required. The Pap Smear is [...] at Main Lab DEPARTMENT OF PATHOLOGY, [address] [place] [address] René Corrigan M.D. Director [facility] # [id number] Procedures Date Code Description Status 01/21/2018 10141 Inject/Drain Joint/Bursa Major W/O US Completed 11/17/2013 01478 EKG Tracing & Interpretation Completed 09/13/2013 50253 EKG, Interpretation Only Completed 05/04/2013 62995 Polysomnography Sleep Staging 4+ Parameters W/Cpap Completed 12/21/2012 26959 Polysomnography Sleep Staging 4+ Parameters Completed Encounters Type Date Location Provider Dx Diagnosis Office Visit 06/11/2018 Orthopedic Hank Hammond, S92.415A Nondisp fx of 3:00p Services Of proximal phalanx of [facility]. left great toe, init Office Visit 05/20/2018 Orthopedic Tesfaye Mosley M22.2x1 Patellofemoral 2:45p Services Of MD Eduardo disorders, right [facility]. knee M25.561 Pain in right knee Office Visit 05/07/2018 3:00p [facility] Internal Rachel Milan, J06.9 Acute upper Medicine - MD respiratory [place] infection, unspecified Office Visit 04/26/2018 3:20p [facility] Internal Tapan Lubin R51 Headache Medicine - [place] Grady Thompson.Amee,FACP S06.0x0S Concussion without loss of consciousness, sequela Office Visit 04/15/2018 3:40p [facility] Internal Mazin R51 Headache Azar Gilmore M.D. [address] Office Visit 04/07/2018 10:20a [facility] Internal Roberto Deras R51 Headache Medicine Valentina Mack M.D. [place] Office Visit 03/24/2018 1:40p [facility] Internal Esther Bui, Z11.1 Encounter for Medicine - LOCKSTITCH CUP SETTER screening for [address] respiratory tuberculosis E66.9 Obesity, unspecified M22.2x1 Patellofemoral disorders, right knee J45.20 Mild intermittent asthma, uncomplicated Z23 Encounter for immunization Office Visit 03/08/2018 Orthopedic Tesfaye Mosley M22.2x1 Patellofemoral 3:00p Services Of MD Eduardo disorders, right C.[facility]. knee S80.211A Abrasion, right knee, initial encounter Office Visit 01/21/2018 2:15p Orthopedic Tesfaye Mosley M25.561 Pain in Services Of Gudelia Clark MD right knee M22.2x1 Patellofemoral disorders, right knee Office Visit 01/14/2018 8:20a [facility] Shoaib Retana M25.561 Pain in right Azar Gilmore M.D. knee [address] Office Visit 01/07/2018 11:40a [facility] Internal Mazin M25.561 Pain in right Azar Gilmore M.D. knee [address] Office Visit 09/21/2017 11:00a [facility] Internal Tapan Lubin L03.811 Cellulitis of Medicine Valentina Thompson M.D.,FACP head [any part, [address] except face] R87.612 Low grade intrepith lesion cyto smr crvx (LGSIL) J45.40 Moderate persistent asthma, uncomplicated Z23 Encounter for immunization Office Visit 05/20/2017 11:00a [facility] Internal Esther Bui, J01.90 Acute sinusitis, Medicine - LOCKSTITCH CUP SETTER unspecified [address] R05 Cough J01.10 Acute frontal sinusitis, unspecified J01.00 Acute maxillary sinusitis, unspecified Office Visit 04/14/2017 11:20a [facility] Internal Mazin Gilmore, Z00.01 Encounter for Medicine - M.DIngrid general adult [address] medical exam w abnormal findings Z23 Encounter for immunization Z11.1 Encounter for screening for respiratory tuberculosis Office Visit 11/20/2016 3:40p [facility] Internal Tapan Lubin R87.618 Oth abnormal Azar Thompson M.D.,FACP cytolog findings [address] on specimens from cervix uteri G47.00 Insomnia, unspecified E66.01 Morbid (severe) obesity due to excess calories E03.9 Hypothyroidism, unspecified Office Visit 07/24/2016 1:40p [facility] Internal Douglas Collins, N76.0 Acute vaginitis Medicine - [place] GASATER[address] Office Visit 04/14/2016 11:20a [facility] Internal Douglas Collins, L42 Pityriasis rosea Medicine - [place] GAS[address] Z11.1 Encounter for screening for respiratory tuberculosis Office Visit 04/11/2016 2:20p [facility] Internal Douglas Collins, Z02.1 Encounter for Medicine - GASATERIA ATTENDANT pre-employment [address] examination Z11.1 Encounter for screening for respiratory tuberculosis E66.9 Obesity, unspecified Office Visit 03/20/2016 1:40p [facility] Internal Tapan Lubin J45.21 Mild intermittent Azar Thompson M.D.,FACP asthma with [address] (acute) exacerbation Z23 Encounter for immunization Office Visit 02/26/2016 1:40p [facility] Internal Douglas Collins, G47.00 Insomnia, Medicine - GASATERIA ATTENDANT unspecified [address] Office Visit 02/04/2016 1:40p [facility] Internal Douglas Collins, Z01.419 Encntr for heel molder Medicine - GASATERIA ATTENDANT exam (general) [address] (routine) w/o abn findings E66.9 Obesity, unspecified Office Visit 11/19/2015 1:40p [facility] Internal Douglas Collins, M70.71 Other bursitis of Medicine - GASATERIA ATTENDANT hip, right hip [address] Office Visit 11/02/2015 9:20a [facility] Internal Tapan Lubin E73.9 Lactose Medicine - [place], intolerance, [address] M.D.,FACP unspecified K21.9 Gastro-esophageal reflux disease without esophagitis E66.09 Other obesity due to excess calories M25.551 Pain in right hip Office Visit 05/07/2015 4:00p [facility] Internal Roland Wilkins, E73.8 Other lactose Medicine - [place] M.D. intolerance Rd E73.9 Lactose intolerance, unspecified Office Visit 04/19/2015 11:00a [facility] Internal Douglas Collins, J20.9 Acute bronchitis, Medicine - [place] GASATERIA ATTENDANT unspecified Rd R05 Cough R06.2 Wheezing M54.5 Low back pain Office Visit 04/12/2015 11:00a [facility] Internal Roland Wilkins, J06.9 Acute upper Medicine - [place] M.D. respiratory Rd infection, unspecified K21.9 Gastro-esophageal reflux disease without esophagitis G47.33 Obstructive sleep apnea (adult) (pediatric) E66.09 Other obesity due to excess calories Office Visit 11/17/2013 2:00p [facility] Misbah Lubin 780.79 [place] And Of Quique Dillard M.D. 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
--- OUTSIDE RECORDS SUMMARY | 2018-08-02 23:17 | XMS REPORT | Continuity of Care Document ---
:1995 External Reference #:[id number] Author Name Jane Bunn Care Team Providers Name Role Phone Maryanne Silva M.D. 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 twice a day Frovatriptan 04/26 Active Tablets 2.5mg 9tabs 1 po qd prn Amee Thompson migraine Aye,FACP [facility] Ibuprofen 01/07 Active Tablets 600mg 40tab [...] Active Aerosol 108(90Bas 1unit 1 puff J45.20 ofi e) s every 4 Hao, mcg/Act hours as HOME HEALTH SPEECH THERAPIST needed for chest tightness or wheezing Cpap [...] Hx Suspension 50mcg/Act 16gm take one J06.9 Racehl Propionate puff each MD Bjorn - nostril 06/11 daily Sumatriptan 04/15 Hx Tablets 100mg 14tab use at R51 [facility] s onset of Deirdre, - head M.D. 04/26 ache,october repeat after 2h as needed Propranolol HCL 04/15 Hx Tablets 10mg 60tab 1 tab by R51 Tapan s mouth Amee Thompson, - twice a M.D.,FACP 05/25 day Benzonatate 05/25 Hx Capsules 100mg 30cap ( Not Zsofia s Taking) Hao, - take 1 tab HOME HEALTH SPEECH THERAPIST 04/26 by mouth three times a day as needed for cough Guaifenesin-Code 05/25 Hx Solution 100-10mg/ 120ml take 10 Zsofia 5ML milliliter Hao, - s by mouth HOME HEALTH SPEECH THERAPIST 04/14 in the evening with plenty of water as needed for cough for 7 days as needed Azithromycin 05/22 Hx Tablets 250mg 6tabs take 2 Zsofi tabs on Hao, - day one HOME HEALTH SPEECH THERAPIST 05/27 and 1 tabs /2016 daily for 4 days Fluticasone 05/20 Hx Suspension 50mcg/Act 16gm ( Not J01.90 Zsofia Propionate Taking) 1 Hao, - act each HOME HEALTH SPEECH THERAPIST 04/14 nostril /2017 twice daily Nasal [place] 12 05/20 Hx Solution 0.05% 30ml ( Not J01.90 Zsofia Hour Taking) 2 Hao, - sprays HOME HEALTH SPEECH THERAPIST 04/14 each nostril 2x daily as needed for congestion Ketoconazole 04/14 Hx Cream 2% 60gm apply thin L42 layer Tanzanian, FUNDRAISING DIRECTOR - topically 07/24 to affected area twice [...] every day DIngrid Thompson, - as needed M.D.,[facility] 04/07 Lactaid 11/01 Hx Tablets 3000Unit 100ta 1-2 tab E73.9 bs 5x/day w/ D. Jay, - dairy as M.D.,[facility] 07/24 needed Nizatidine 11/01 Hx Capsules 300mg 45cap K21.9 s DIngrid Thompson, - M.D.,[facility] 07/03 Omeprazole 11/[address] 20mg 45cap 1 by mouth K21.9 s every D. Jay, - other day M.D.,[facility] 04/26 Levofloxacin 04/12 Hx Tablets 500mg 5tabs 1 tablt by J06.9 mouth Wilkins, - every day M.D. 04/19 Escitalopram Hx Tablets 20mg 30tab 1 by mouth Unknown Oxalate /0000 s every day - 04/12 Norethindrone 00 Hx Tablets 5mg 1 by mouth Unknown Acetate /0000 every day - 11/[address] 20mg 100ca 1 by mouth Unknown /0000 ps every day - 11/01 Medications Administered in Office Medication Date Status Form Strength Qnty SIG Indications Ordering Provider PPD Administered Injection Zsofia 018 Hao, HOME HEALTH SPEECH THERAPIST Depomedrol Administered Injection Charline 40MG 018 LUZ Wright PPD Administered Injection Phelps Latha Gilmore M.D. PPD Administered Injection Mazin Latha Gilmore M.D. PPD Administered Injection Douglas 016 Tanzanian, FUNDRAISING DIRECTOR HPV,Unspecifie Administered Injection Unknown d 011 HPV,Unspecifie Administered Injection Unknown d 010 HPV,Unspecifie Administered Injection Unknown d 010 Polio,Unspecif Administered Injection Unknown ied 999 Polio,Unspecif Administered Injection Unknown ied 997 Polio,Unspecif Administered Injection Unknown ied 995 Polio,Unspecif Administered Injection Unknown ied 995 Immunizations CPT Code Status Date Vaccine Reaction Lot # [id number] Given 03/24/2018 Influenza Virus Vaccine, [id number] Quadrivalent, Split, Preservative Free 92765 Given 09/21/2017 Pneumonia Vaccine [id number] 69226 Given 04/14/2017 Influenza Virus Vaccine, no immediate reaction, [id number] Quadrivalent, Split, pt tolerated well Preservative Free 20010 Given 03/20/2016 Influ Virus Vaccine, [id number] Quadrivalent, Split Virus, [place] [address] Given 05/04/2013 Meningitis MCV4 MenACWY Meningococcal Conjugate Vaccine 82052 Given 05/04/2013 Hepatitis A Vaccine Pediatric/Adolescent Dosage 2 Dose Schedule 40504 Given 02/25/2010 Varicella (Chicken Pox) Immunization 05977 Given 02/02/2009 Meningitis MCV4 MenACWY Meningococcal Conjugate Vaccine 65615 Given 02/02/2009 Tdap - Tetanus/Diptheria/Acellular Pertussis 24487 Given 01/25/1999 Measles Mumps And Rubella MMR 45002 Given 11/10/1997 Varicella (Chicken Pox) Immunization 69191 Given 11/17/1996 Measles Mumps And Rubella MMR 88623 Given 1995 Hep B Pediatric/Adolescent 47842 Given 1995 Hep B Pediatric/Adolescent 35725 Given 1995 Hep B Pediatric/Adolescent Vital Signs Date Vital Result Comment 07/21/2018 10:17am Height 63 inches 5'3" Weight [...] Test Result H/L Range Note Laboratory test Catapult And Arresting Gear Officer In House Influenza A/B <pending> finding 9 Rapid Laboratory test [facility] Helico Pylori Negative Negative 1 finding [address] [place] [address] [phone] Lipid Profile [facility] Triglycerides 105 mg/dL 2 (Trig/Chol/HDL) [address] [place] [address] [phone] Cholesterol 188 mg/dL 3 HDL Cholesterol 56.7 mg/dL 4 LDL Cholesterol 110 mg/dL 5 Laboratory test 01/08/2018 [facility] TSH (Thyroid 2.03 mcIU/mL N 0.34-5.60 [address] Stim [place]) [place] [address] [phone] Glucose 89 mg/dL N 70-100 7 Laboratory test 06/05/2017 [facility] Stool Culture SEE RESULT [address] [place] [address] [phone] Fecal Lactoferrin (Stool WBC) SEE RESULT BELOW 9 Urinalysis Profile 06/05/2017 [facility] Urine Color Yellow [address] [place] [address] [phone] Urine Appearance Cloudy Urine Specific Harvey 1.034 High 1.010-1.030 Urine pH 5.0 N [...] Present Abnormal Absent Urine Culture And 06/05/2017 [facility] Urine SEE RESULT [address] [place] [address] [phone] Laboratory test 06/04/2017 [facility] Lactic Acid 2.3 mmol/L High 0.5-2 [address]0 [place] [address] [phone] CBC Auto Diff 06/04/2017 [facility] White Blood 18.8 High 3.5- [address] Count 10^3/uL 0.8 [place] [address] [phone] Red Blood Count 5.01 10^6/uL N 4.0-5.4 [...] Cells % 0 Comp Metabolic Panel 06/04/2017 [facility] Sodium 137 mmol/L N 133-[address] [place] [address] [phone] Potassium 3.9 mmol/L N 3.5-5.0 Chloride 101 [...] Egfr 157.7 >60 12 Laboratory test 06/04/2017 [facility] Magnesium 1.6 mg/dL Low 1.9-2.[address] [place] [address] [phone] Lipase 17 U/L N 11.0-82.0 C Reactive Protein 23.57 mg/L High < 5.00 13 HCG < 0.60 mIU/mL 14 GC/Chlamydia 11/20/2016 [facility] Chlamydia Negative N Negative Amplified Rna [address] [place] [address] [phone] Neisseria gonorrhoeae (GC) Rna Negative N Negative Laboratory test 11/20/2016 [facility] Cytology SEE RESULT [address] [place] [address] [phone] Laboratory test 07/24/2016 [facility] Gardnerella/Yeast: SEE RESULT [address] [place] [address] [phone] Laboratory test 02/08/2016 [facility] TSH (Thyroid Stim 5.58 N 0.34- [address] Horm) mcIU/mL 5.60 [place] [address] [phone] Lipid Profile 02/08/2016 [facility] Triglycerides 153 mg/dL N 18 (Trig/Chol/HDL) [address] [place] [address] [phone] Cholesterol 172 mg/dL N 19 HDL Cholesterol 51.8 mg/dL N 20 LDL Cholesterol 90 mg/dL N 21 Laboratory test finding 02/08/2016 [facility] Glucose 99 mg/dL N 70-[address] [place] [address] [phone] Cortisol 19.70 ?g/dL N 23 Laboratory test 02/04/2016 [facility] Cytology SEE RESULT BELOW [address] [place] [address] [phone] 1 Test Performed by: [address] [address] 2 Desirable: <150 Borderline High: 150-199 High: 200-499 Very High: >500 3 Desirable: <200 Borderline High: 200-239 High: >239 4 Low: <40 Desirable: 40-60 High: >60 5 Desirable: <100 Near Optimal: 100-129 Borderline High: 130-159 High: 160-189 Very High: >189 6 FASTING 10 HOUR 7 FASTING 10 HOUR 8 SEE RESULT BELOW Name: JAYDE CASEY : [address]: Germain Tejeda MD Acct: [id number] Unit: [id number] AGE: 22 Location: ED Re06/04/17 SEX: F Status: DEP ER SPEC: [id number] YOLA: 06/05/17 [facility] DR: Maddy CISNEROS REQ: [id number] RECD: 06/05/17 STATUS: PILO CALERO DR: Tapan Tejeda MD _ SOURCE: [...] are required. Stool Specimen Description Final 06/05/17- 130 ML Stool Color Brown Stool Form Nonformed Stool Consistency Watery Shiga Toxin 1 2 PENDING * ML - MAIN LAB ([facility]) . END OF REPORT * ML=Testing performed at Main Lab DEPARTMENT OF PATHOLOGY, [address] [place] [address] René Corrigan M.D. Director [place] # [id number] 9 SEE RESULT BELOW Name: JAYDE CASEY : [address]: Germain Tejeda MD Acct: [id number] Unit: [id number] AGE: 22 Location: ED Re06/04/17 SEX: F Status: REG ER SPEC: [id number] YOLA: 06/05/17-[address]: Maddy CISNEROS REQ: [id number] RECD: 06/05/17 STATUS: JENNIFER CALERO DR: Tapan [...] this assay. * ML - MAIN LAB ([facility]) . END OF REPORT * ML=Testing performed at Main Lab DEPARTMENT OF PATHOLOGY, [address] [place] [address] René Corrigan M.D. Director [facility] # [id number] 10 SEE RESULT BELOW Name: JAYDE CASEY : [address]: Germain Tejeda MD Acct: [id number] Unit: [id number] AGE: 22 Location: ED Re06/04/17 SEX: F Status: DEP ER SPEC: [id number] YOLA: 06/05/[address]: Maddy CISNEROS REQ: [id number] RECD: 06/05/17 STATUS: JENNIFER CALERO DR: Tapan Tejeda MD _ SOURCE: URINE SPDESC: ORDERED: Urine Culture Procedure Result Reported Site Urine Culture Final 06/06/17- 0854 ML No growth of clinically significant organisms * ML - [facility]) . END OF REPORT * ML=Testing performed at Main Lab DEPARTMENT OF PATHOLOGY, [address] [place] [address] René Corrigan M.D. Director [facility] # [id number] 11 Critical Result LACT:2.3 Called to CAN at: 22:46:30 by:[id number] Read back by:[facility] Severe Sepsis and Septic Shock Management [...] [address]: Sabra Thompson MD Acct: [id number] Unit: [id number] AGE: 21 Location: [facility] Re11/20/16 SEX: F Status: REG REF SPEC: [id number] YOLA: 11/20/16-1640 [facility] DR: Tapan Thompson MD REQ: [id number] RECD: 11/20/16 STATUS: SOUT _ ORDERED: TP IMAGE ANAL, LEAD POURER PHYS INTERP COMMENTS: [id number] FINAL DIAGNOSIS EPITHELIAL CELL ABNORMALITIES Low grade [...] was evaluated with the assistance of the [employer] Test Imaging System. Due to cytologic findings at the roast master microscope, comprehensive manual rescreening by a Business Management Specialist may be required. The Pap Smear is [...] performed at Main Lab DEPARTMENT OF PATHOLOGY, [address] [place] [address] René Corrigan M.D. Director [facility] # [id number] 16 SEE RESULT BELOW Name: JAYDE CASEY : [address]: Douglas Collins NP Acct: [id number] Unit: [id number] AGE: 21 Location: [facility] Re07/24/16 SEX: F Status: REG REF SPEC: [id number] YOLA: 07/24/16-141[facility] DR: Douglas Collins NP REQ: [id number] RECD: 07/24/16 STATUS: COMP _ SOURCE: VAGINAL SPDESC: ORDERED: Ashlie,Yeast DNA, Trich DNA COMMENTS: [id number] Procedure Result Reported Site Gardnerella/Yeast: Vaginal DNA [...] performed at Main Lab DEPARTMENT OF PATHOLOGY, [address] [place] [address] René Corrigan M.D. Director [facility] # [id number] Patient: JAYDE CASEY [id number] (Continued) Specimen: [id number] Collected: 07/24/16 Received: 07/24/16 (Continued) Procedure Result Reported Site Trichomonas: Vaginal DNA Probe Final (continued) 07/25/161316 The presence or absence of T. vaginalis cannot be used as a test for therapeutic success or failure. * ML - MAIN LAB ([facility]) . END OF REPORT * ML=Testing performed at Main Lab DEPARTMENT OF PATHOLOGY, [address] [place] [address] René Corrigan M.D. Director [facility] # [id number] 17 FASTING 10 HOUR fasting labs do [...] [address]: Douglas Collins NP Acct: [id number] Unit: [id number] AGE: 21 Location: [facility] Re02/04/16 SEX: F Status: REG REF SPEC: [id number] YOLA: 02/04/16-1649 [facility] DR: Douglas Santiago Tanzanian FUNDRAISING DIRECTOR REQ: [id number] RECD: 02/04/16 STATUS: SOUT _ ORDERED: IMAGE ANALYSIS, PAP SM PATH REV COMMENTS: [id number] FINAL DIAGNOSIS EPITHELIAL CELL ABNORMALITIES Low grade [...] was evaluated with the assistance of the [employer] Test Imaging System. Due to cytologic findings at the roast master microscope, comprehensive manual rescreening by a Business Management Specialist may be required. The Pap Smear is [...] performed at Main Lab DEPARTMENT OF PATHOLOGY, [address] [place] [address] René Corrigan M.D. Director [facility] # [id number] Procedures Date Code Description Status 01/21/2018 37401 Inject/Drain Joint/Bursa Major W/O US Completed 11/17/2013 32883 EKG Tracing & Interpretation Completed 09/13/2013 14198 EKG, Interpretation Only Completed 05/04/2013 68941 Polysomnography Sleep Staging 4+ Parameters W/Cpap Completed 12/21/2012 91643 Polysomnography Sleep Staging 4+ Parameters Completed Encounters Type Date Location Provider Dx Diagnosis Office Visit 06/11/2018 Orthopedic Hank Hammond, S92.415A Nondisp fx of 3:00p Services Of proximal phalanx of C.M.A. left great toe, init Office Visit 05/20/2018 Orthopedic Tesfaye Mosley M22.2x1 Patellofemoral 2:45p Services Of MD Eduardo disorders, right C.M.A. knee M25.561 Pain in right knee Office Visit 05/17/2018 4:00p [facility] Internal Mazin R51 Headache Medicine - Tbrowan Gilmore M.D. Rd Office Visit 05/07/2018 3:00p [facility] Internal Rachel Milan MD J06.9 Acute upper Medicine - respiratory [place] infection, unspecified Office Visit 04/26/2018 3:20p [facility] Internal Tapan Lubin R51 Headache Medicine - [place] Aye Thompson,FACP Rd S06.0x0S Concussion without loss of consciousness, sequela Office Visit 04/15/2018 3:40p [facility] Internal Mazin R5Gabriel Headache Medicine Valentina Gilmore M.D. [address] Office Visit 04/07/2018 10:20a [facility] Internal Roberto Paula Headache Medicine Valentina Mack M.D. 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 knee S80.211A Abrasion, right knee, initial encounter Office Visit 01/21/2018 2:15p Orthopedic Tesfaye Mosley M25.561 Pain in Services Of Gudelia Clark MD right knee M22.2x1 Patellofemoral disorders, right knee Office Visit 01/14/2018 8:20a [facility] Internal Mazin M25.561 Pain in right Azar Gilmore M.D. knee [address] Office Visit 01/07/2018 11:40a [facility] Internal Mazin M25.561 Pain in right Azar Gilmore M.D. knee [address] Office Visit 09/21/2017 11:00a [facility] Internal Tapan Lubin L03.811 Cellulitis of Azar Thompson M.D.,FACP head [any part, [address] except face] R87.612 Low grade intrepith lesion cyto smr crvx (LGSIL) J45.40 Moderate persistent asthma, uncomplicated Z23 Encounter for immunization Office Visit 05/20/2017 11:00a [facility] Internal Esther Bui, J01.90 Acute sinusitis, Medicine - HOME HEALTH SPEECH THERAPIST unspecified [address] R05 Cough J01.10 Acute frontal sinusitis, unspecified J01.00 Acute maxillary sinusitis, unspecified Office Visit 04/14/2017 11:20a [facility] Internal Mazin Gilmore, Z00.01 Encounter for Medicine - M.DIngrid general adult [address] medical exam w abnormal findings Z23 Encounter for immunization Z11.1 Encounter for screening for respiratory tuberculosis Office Visit 11/20/2016 3:40p [facility] Shoaib Lubin R87.618 Oth abnormal Azar Thompson M.D.,FACP cytolog findings [address] on specimens from cervix uteri G47.00 Insomnia, unspecified E66.01 Morbid (severe) obesity due to excess calories E03.9 Hypothyroidism, unspecified Office Visit 07/24/2016 1:40p [facility] Internal Douglas Collins, N76.0 Acute vaginitis Medicine - [place] [address] Office Visit 04/14/2016 11:20a [facility] Internal Douglas Collins, L42 Pityriasis rosea Medicine - [place] [address] Z11.1 Encounter for screening for respiratory tuberculosis Office Visit 04/11/2016 2:20p [facility] Internal Douglas Collins, Z02.1 Encounter for Medicine - FUNDRAISING DIRECTOR pre-employment [address] examination Z11.1 Encounter for screening for respiratory tuberculosis E66.9 Obesity, unspecified Office Visit 03/20/2016 1:40p [facility] Internal Tapan Lubin J45.21 Mild intermittent Azar Thompson M.D.,FACP asthma with [address] (acute) exacerbation Z23 Encounter for immunization Office Visit 02/26/2016 1:40p [facility] Internal Douglas Collins, G47.00 Insomnia, Medicine - FUNDRAISING DIRECTOR unspecified [address] Office Visit 02/04/2016 1:40p [facility] Internal Douglas Collins, Z01.419 Encntr for case loader operator Medicine - FUNDRAISING DIRECTOR exam (general) [address] (routine) w/o abn findings E66.9 Obesity, unspecified Office Visit 11/19/2015 1:40p [facility] Internal Douglas Collins, M70.71 Other bursitis of Medicine - FUNDRAISING DIRECTOR hip, right hip [address] Office Visit 11/02/2015 9:20a [facility] Internal Tapan Lubin E73.9 Lactose Medicine - Jay, intolerance, [address] M.D.,FACP unspecified K21.9 Gastro-esophageal reflux disease without esophagitis E66.09 Other obesity due to excess calories M25.551 Pain in right hip Office Visit 05/07/2015 4:00p [facility] Internal Roland Wilkins, E73.8 Other lactose Medicine - [place] M.D. intolerance Rd E73.9 Lactose intolerance, unspecified Office Visit 04/19/2015 11:00a [facility] Internal Douglas Collins, J20.9 Acute bronchitis, Medicine - [place] FUNDRAISING DIRECTOR unspecified Rd R05 Cough R06.2 Wheezing M54.5 Low back pain Office Visit 04/12/2015 11:00a [facility] Internal Roland Wilkins, J06.9 Acute upper Medicine - [place] M.D. respiratory Rd infection, unspecified K21.9 Gastro-esophageal reflux disease without esophagitis G47.33 Obstructive sleep apnea (adult) (pediatric) E66.09 Other obesity due to excess calories Office Visit 11/17/2013 2:00p [facility] Misbah Lubin 780.79 Malaise And Of [...] Hank Hammond MD at [facility].11/23/2018 11:00 am - Jean Sahu MD at [facility] Hjamdl2308/25/2018 1:40 pm - Maryanne Silva MD at [facility] Internal Medicine - [address]05/17/2018 - Mazin Gilmore M.D.R51 HeadacheFollow up:2 weeks
[2018-08-02] MEDS ORDERED: Benzonatate CAP* 100 MG PO ONE (23:29)
--- NOTE | 2018-08-02 23:33 | ED ---
Respiratory - HPI Summary HPI Summary: Patient complains of cold symptoms 2 weeks ago that resolved after one week with remaining persistent cough and mild fever around 100 nightly. Patient states she sometimes coughs until she gags and becomes short of breath. Cough described as nonproductive. Patient managing fever with Tylenol. Denies GAYTAN, sore throat, ear pain, neck stiffness, CP, N/V/D, abdominal pain, change in urine, change in BM. Medical history is as reflux, PCO as, migraines. Nonsmoker. Rare EtOH. Denies recreational drug use. Tested flu neg 2 weeks ago at primary care. - History of Current Complaint Chief Complaint: EDUpperRespComplaint Stated Complaint: GENERAL ILLNESS Time Seen by Provider: 08/02/18 23:14 Hx Obtained From: Patient Onset/Duration: Gradual Onset Initial Severity: Mild Current Severity: Mild Pain Intensity: 3 Character: Cough (Nonproductive) Sputum Amount: None Aggravating Factor(s): Nothing Alleviating Factor(s): Nothing Associated Signs and Symptoms: Fever - Allergy/Home Medications Allergies/Adverse Reactions: Allergies Allergy/AdvReac Type Severity Reaction Status Date / Time No Known Allergies Allergy Verified 08/02/18 23:10 PMH/Surg Hx/FS Hx/Imm Hx Endocrine/Hematology History: Denies: Hx Anticoagulant Therapy, Hx Blood Disorders, Hx Diabetes, Hx Thyroid Disease Cardiovascular History: Denies: Hx Hypertension, Hx Pacemaker/ICD Respiratory History: Reports: Hx Sleep Apnea - Current CPAP user on auto setting. Denies: Hx Asthma, Hx Chronic Obstructive Pulmonary Disease (COPD) GI History: Reports: Hx Gastroesophageal Reflux Disease - 30 mg omeprazole q daily w/good results, Hx Ulcer Musculoskeletal History: Reports: Hx Back Problems - recent complaint of low back pain Sensory History: Reports: Hx Contacts or Glasses Denies: Hx Hearing Aid Opthamlomology History: Reports: Hx Contacts or Glasses Psychiatric History: Reports: Hx Anxiety Denies: Hx Panic Disorder - Surgical History Surgery Procedure, Year, and Place: wisdom teeth - Immunization History Date of Tetanus Vaccine: utd Date of Influenza Vaccine: fall 2017 Infectious Disease History: No Infectious Disease History: Denies: Hx Clostridium Difficile, Hx Hepatitis, Hx Human Immunodeficiency Virus (HIV), Hx of Known/Suspected MRSA, Hx Shingles, Hx Tuberculosis, Hx Known/ Suspected VRE, Hx Known/Suspected VRSA, History Other Infectious Disease, Traveled Outside the [place] in Last 30 Days - Family History Known Family History: Positive: None, Other - mom- multiple health issues Family History: R & n/C - Social History Alcohol Use: Rare Hx Substance Use: No Substance Use Type: Reports: None Hx Tobacco Use: No Smoking Status (MU): Never Smoked Tobacco Have You Smoked in the Last Year: No Review of Systems Positive: Fever Eyes: Negative ENT: Negative Cardiovascular: Negative Positive: Cough Gastrointestinal: Negative Genitourinary: Negative Musculoskeletal: Negative Skin: Negative Neurological: Negative Psychological: Normal All Other Systems Reviewed And Are Negative: Yes Physical Exam - Summary Physical Exam Summary: ENT exam unremarkable. Chest sounds clear to auscultation bilaterally. Abdomen soft nontender. Triage Information Reviewed: Yes Vital Signs On Initial Exam: Initial Vitals Temp Pulse Resp BP Pulse Ox 98.4 F 82 18 136/91 97 08/02/18 23:06 08/02/18 23:06 08/02/18 23:06 08/02/18 23:06 08/02/18 23:06 Vital Signs Reviewed: Yes Appearance: Positive: Well-Appearing Skin: Positive: Warm Head/Face: Positive: Normal Head/Face Inspection Eyes: Positive: Normal ENT: Positive: Pharyngeal erythema Neck: Positive: Supple Respiratory/Lung Sounds: Positive: Clear to Auscultation Cardiovascular: Positive: Normal Abdomen Description: Positive: Nontender Musculoskeletal: Positive: Normal Neurological: Positive: Normal Psychiatric: Positive: Normal AVPU Assessment: Alert - [place] Coma Scale Best Eye Response: 4 - Spontaneous Best Motor Response: 6 - Obeys Commands Best Verbal Response: 5 - Oriented Coma Scale Total: 15 Diagnostics - Vital Signs Vital Signs Temp Pulse Resp BP Pulse Ox 08/02/18 23:06 98.4 F 82 18 136/91 97 - Laboratory Lab Statement: Any lab studies that have been ordered have been reviewed, and results considered in the medical decision making process. Disposition - Course Course Of Treatment: Patient complains of cold symptoms 2 weeks ago that resolved after one week with remaining persistent cough and mild fever around 100 nightly. Patient states she sometimes coughs until she gags and becomes short of breath. Cough described as nonproductive. Patient managing fever with Tylenol. Denies GAYTAN, sore throat, ear pain, neck stiffness, CP, N/V/D, abdominal pain, change in urine, change in BM. Medical history is as reflux, PCO as, migraines. Nonsmoker. Rare EtOH. Denies recreational drug use. Tested flu neg 2 weeks ago at primary care. Physical exam:ENT exam unremarkable. Chest sounds clear to auscultation bilaterally. Abdomen soft nontender. Vital signs within normal limits. Chest x-ray negative. Rx for Tessalon pearls. - Diagnoses Provider Diagnoses: Viral syndrome Discharge - Sign-Out/Discharge Documenting (check all that apply): Patient Departure Patient Received Moderate/Deep Sedation with Procedure: No - Discharge Plan Condition: Stable Disposition: HOME Patient Education Materials: Viral Syndrome (ED) Referrals: Maryanne Silva MD [Primary Care Provider] - Additional Instructions: Tylenol every 4 hours for control of fever. Continue to use Triaminic for cough suppressant. Drink plenty of fluids to maintain hydration. Rest. Follow -up with primary care. Return to the ED for any new or worsening symptoms. - Billing Disposition and Condition Condition: STABLE Disposition: Home
== END 2018-08-03 00:06 | disposition home or self-care (01) ==
LOC: ED 23:04
DX: B34.9 Viral infection, unspecified (principal); K21.9 Gastro-esophageal reflux disease without esophagitis
CPT/HCPCS: 71045; 99282; A9270-GY

== ENCOUNTER → 2018-08-11 21:26 | Emergency (ER) | payer OTHER ==
[~2018-08-11 21:26] MED LIST: Bacitracin OINTMENT* 0.5% 0.5 oz TUBE TOPICAL ONE; oxyCODONE/Acetamin 5/325 MG* TAB PO ONE
--- OUTSIDE RECORDS SUMMARY | 2018-08-11 21:40 | XMS REPORT | Continuity of Care Document ---
:1995 External Reference #:[id number] Author Name Maricel Busch Care Team Providers Name Role Phone Maryanne Silva M.D. 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 [employer] Tobacco Use Start: Unknown Never Smoked Cigarettes Smoking Status Reviewed: 08/04/18 Never Smoked Cigarettes ETOH Use 11/02/2015 Rarely [...] 12cap 1 tab at at s bedtime Ricardo every sun at bedtime every mon at bedtime Ranitidine HCL 06/30 Active Tablets 150mg 30tab 1 by mouth K21.9 s twice a day Ricardo, as needed MD for heartburn Propranolol HCL 05/25 Active Tablets 20mg 60tab take one R51 s tablet by Ricardo mouth twice MD a day Frovatriptan 04/26 Active Tablets 2.5mg 9tabs 1 po qd prn Tapan migraine Amee Thompson, (MVA-relate M.D.,FACP d) Ibuprofen 01/07 Active Tablets 600mg 40tab 1 po up to M25.561 Roberto E. s four times Martina, a day M.D. Nizatidine 07/03 Active Capsules 150mg 60cap Take 2 K21.9 s Capsules By Amee Thompson Mouth Every M.D.,FACP Other Day Alternating With Omeprazole Omeprazole 11/[address] 20mg 30cap 1 by mouth K21.9 s every day MD Ricardo Proair HFA 04/19 Active Aerosol 108(90Bas 1unit 1 puff J45.20 ofi e) s every 4 Hao, mcg/Act hours as FOOTBALL SCOUT needed for chest tightness or wheezing Cpap 00/00 Active every night Unknown /0000 at bedtime Fiber-Caps 00 Active Tablets 625mg 1 by mouth Unknown /0000 every day Venlafaxine HCL Active Tablets 75mg once daily Unknown /0000 Zovia 1/35E (28) 00 Active Tablets 1-35mg-mc 28tab 1 by mouth Geovany / g s every day Amee Thompson M.D.,[facility] Metronidazole Active Cream 0.75% apply two times a day as needed for facial rash Gabapentin Active Capsules 300mg 1po qd Unknown Mucinex 07/28 Hx Tablets ER 600mg 30tab 1 by mouth R05 Zsofia 12HR s twice a day Hao, - FOOTBALL SCOUT 08/03 Guaifenesin-Code 07/28 Hx Solution 100-10mg/ 118ml take 10 R05 Zsofia ine 5ML milliliters Hao, - by mouth FOOTBALL SCOUT 08/03 every evening with plenty of water as needed for cough for 5 days as needed Fluticasone 05/07 Hx Suspension 50mcg/Act 16gm take one J06.9 Rachel Propionate puff each MD Bjorn - nostril 06/11 daily Sumatriptan 04/15 Hx Tablets 100mg 14tab use at R51 [facility] s onset of [place]achikara - Aye ontiveros 04/26 ache,october repeat after 2h as needed Propranolol HCL 04/15 Hx Tablets 10mg 60tab 1 tab by R51 [place] s mouth twice Amee Thompson - a day [facility] 05/25 Benzonatate 05/25 Hx Capsules 100mg 30cap ( Not Zsofia s Taking) Hao, - take 1 tab FOOTBALL SCOUT 04/26 by mouth /2017 three times a day as needed for cough Guaifenesin-Code 05/25 Hx Solution 100-10mg/ 120ml take 10 Zsofia 5ML milliliters Hao, - by mouth in FOOTBALL SCOUT 04/14 the evening with plenty of water as needed for cough for 7 days as needed Azithromycin 05/22 Hx Tablets 250mg 6tabs take 2 tabs Zsofia on day one Hao, - and 1 tabs FOOTBALL SCOUT 05/27 daily for days Fluticasone 05/20 Hx Suspension 50mcg/Act 16gm ( Not J01.90 Zsofia Propionate Taking) 1 Hao, - act each FOOTBALL SCOUT 04/14 nostril twice daily Nasal [place] 12 05/20 Hx Solution 0.05% 30ml ( Not J01.90 Zsofia Hour Taking) 2 Hao, - sprays each FOOTBALL SCOUT 04/14 nostril 2x daily as needed for congestion Ketoconazole 04/14 Hx Cream 2% 60gm apply thin L42 layer Urdu, - topically RECREATIONAL THERAPY TECHNICIAN 07/24 to affected area twice a day until resolved Ronni Dacostaes 03/20 Hx Capsules 100mg 30cap 1-2 by J45.21 s mouth three DIngrid Thompson, - times a day M.D.,[facility] 04/11 as needed Azithromycin 03/20 Hx Tablets 250mg 6tabs 2 every day J45.21 for 1 day, Amee Thompson, - then 1 M.D.,[facility] 03/25 every Melatonin ER 02/25 Hx Tablets ER 3mg 30tab 1-2 tabs po G47.00 s at hs only Urdu, - as needed RECREATIONAL THERAPY TECHNICIAN 07/24 Meloxicam 11/18 Hx Tablets 7.5mg 30tab 1 by mouth M70.71 s every day Amee Thompson, - as needed M.D.,[facility] 04/07 Lactaid 11/01 Hx Tablets 3000Unit 100ta 1-2 tab E73.9 bs 5x/day w/ Amee Thompson, - dairy as M.D.,[facility] 07/24 Nizatidine 11/01 Hx Capsules 300mg 45cap K21.9 s Amee Thomposn, - M.D.,[facility] 07/03 Omeprazole 11/[address] 20mg 45cap 1 by mouth K21.9 s every other DIngrid Thompson, - day M.D.,[facility] 04/26 Levofloxacin 04/12 Hx Tablets 500mg [...] Aye Gilmore PPD Administered Injection Douglas 016 Urdu, RECREATIONAL THERAPY TECHNICIAN HPV,Unspecifie Administered Injection Unknown d 011 HPV,Unspecifie Administered Injection Unknown d 010 HPV,Unspecifie Administered Injection Unknown d 010 Polio,Unspecif Administered Injection Unknown ied 999 Polio,Unspecif Administered Injection Unknown ied 997 Polio,Unspecif Administered Injection Unknown ied 995 Polio,Unspecif Administered Injection Unknown ied 995 Immunizations CPT Code Status Date Vaccine Reaction Lot # [id number] Given 03/24/2018 Influenza Virus Vaccine, [id number] Quadrivalent, Split, Preservative Free 29287 Given 09/21/2017 Pneumonia Vaccine [id number] 02084 Given 04/14/2017 Influenza Virus Vaccine, no immediate reaction, [id number] Quadrivalent, Split, pt tolerated well Preservative Free 03622 Given 03/20/2016 Influ Virus Vaccine, [id number] Quadrivalent, Split Virus, [place] [address] Given 05/04/2013 Meningitis MCV4 MenACWY Meningococcal Conjugate Vaccine 06276 Given 05/04/2013 Hepatitis A Vaccine Pediatric/Adolescent Dosage 2 Dose Schedule 19935 Given 02/25/2010 Varicella (Chicken Pox) Immunization 62406 Given 02/02/2009 Meningitis MCV4 MenACWY Meningococcal Conjugate Vaccine 25470 Given 02/02/2009 Tdap - Tetanus/Diptheria/Acellular Pertussis 57124 Given 01/25/1999 Measles Mumps And Rubella MMR 18590 Given 11/10/1997 Varicella (Chicken Pox) Immunization 27309 Given 11/17/1996 Measles Mumps And Rubella MMR 94606 Given 1995 Hep B Pediatric/Adolescent 57773 Given 1995 Hep B Pediatric/Adolescent 86280 Given 1995 Hep B Pediatric/Adolescent Vital Signs Date Vital Result Comment 08/04/2018 3:43pm Height 63 inches 5'3" Weight 242.50 lb Heart Rate 86 /min BP Systolic 126 mmHg BP Diastolic 82 mmHg Body Temperature 98.9 F O2 % BldC Oximetry 98 % BMI (Body Mass Index) 43.0 kg/m2 07/30/2018 2:51pm Height 63 inches 5'3" Weight [...] Test Result H/L Range Note 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 test 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 In House Influenza A/B Neg A - Neg finding 9 Rapid B Laboratory test [facility] Helico Pylori Negative Negative 1 finding [address] Antigen- Stool [place], [place] [id number] [phone] Lipid Profile [facility] Triglycerides 105 mg/dL 2 (Trig/Chol/HDL) [address] [place] [address] [phone] Cholesterol 188 mg/dL 3 HDL Cholesterol 56.7 mg/dL 4 LDL Cholesterol 110 mg/dL 5 Laboratory test 01/08/2018 [facility] TSH (Thyroid 2.03 mcIU/mL N 0.34-5.60 [address] Stim [place]orm) [place] [address] [phone] Glucose 89 mg/dL N 70-100 7 Laboratory test 06/05/2017 [facility] Stool Culture SEE RESULT [address] [place] [address] [phone] Fecal Lactoferrin (Stool WBC) SEE RESULT BELOW 9 Urinalysis Profile 06/05/2017 [facility] Urine Color Yellow [address] [place] [address] [phone] Urine Appearance Cloudy Urine Specific [place] 1.034 High 1.010-1.030 Urine pH 5.0 N [...] Present Abnormal Absent Urine Culture And 06/05/2017 [facility] Urine SEE RESULT [address] [place] [place] [address] [phone] Laboratory test 06/04/2017 [facility] Lactic Acid 2.3 mmol/L High 0.5-2 [address]0 [place] [address] [phone] CBC Auto Diff 06/04/2017 [facility] White Blood 18.8 High 3.5- [address] Count 10^3/uL 0.8 [place] [address] [phone] Red Blood Count 5.01 10^6/uL N 4.0-5.4 [...] Cells % 0 Comp Metabolic Panel 06/04/2017 [facility] Sodium 137 mmol/L N 133-[address] [place] [address] [phone] Potassium 3.9 mmol/L N 3.5-5.0 Chloride 101 [...] Egfr 157.7 >60 12 Laboratory test 06/04/2017 [facility] Magnesium 1.6 mg/dL Low 1.9-2.[address] [place] [address] [phone] Lipase 17 U/L N 11.0-82.0 C Reactive Protein 23.57 mg/L High < 5.00 13 HCG < 0.60 mIU/mL 14 GC/Chlamydia 11/20/2016 [facility] Chlamydia Negative N Negative Amplified Rna [address] [place] [address] [phone] Neisseria gonorrhoeae (GC) Rna Negative N Negative Laboratory test 11/20/2016 [facility] Cytology SEE RESULT [address] [place] [address] [phone] Laboratory test 07/24/2016 [facility] Gardnerella/Ye SEE RESULT [address] ast: [place] [address] Dna [phone] Laboratory test 02/08/2016 [facility] Glucose 99 mg/dL N 70- 100 [address] [place] [address] [phone] Cortisol 19.70 ?g/dL N 18 Lipid Profile 02/08/2016 [facility] Triglycerides 153 mg/dL N 19 (Trig/Chol/HDL) [address] [place] [address] [phone] Cholesterol 172 mg/dL N 20 HDL Cholesterol 51.8 mg/dL N 21 LDL Cholesterol 90 mg/dL N 22 Laboratory test 02/08/2016 [facility] TSH (Thyroid 5.58 mcIU/mL N 0.34-5.60 [address] Stim [place]orm) [place] [address] [phone] Laboratory test 02/04/2016 [facility] Cytology SEE RESULT [address] [place] [address] [phone] 1 Test Performed by: [facility] - [address] [address] 2 Desirable: <150 Borderline High: 150-199 High: 200-499 Very High: >500 3 Desirable: <200 Borderline High: 200-239 High: >239 4 Low: <40 Desirable: 40-60 High: >60 5 Desirable: <100 Near Optimal: 100-129 Borderline High: 130-159 High: 160-189 Very High: >189 6 FASTING 10 HOUR 7 FASTING 10 HOUR 8 SEE RESULT BELOW Name: JAYDE CASEY : [address]: Germain Tejeda MD Acct: [id number] Unit: [id number] AGE: 22 Location: ED Re06/04/17 SEX: F Status: DEP ER SPEC: [id number] YOLA: 06/05/[address]: Maddy CISNEROS REQ: [id number] RECD: 06/05/17 STATUS: RES ABDIAS DR: Tapan [...] 2 PENDING * ML - MAIN LAB ([facility]) . END OF REPORT * ML=Testing performed at Main Lab DEPARTMENT OF PATHOLOGY, [address] [place] [address] René Corrigan M.D. Director [facility] # [id number] 9 SEE RESULT BELOW Name: JAYDE CASEY : [address]: Germain Tejeda MD Acct: [id number] Unit: [id number] AGE: 22 Location: ED Re06/04/17 SEX: F Status: REG ER SPEC: [id number] YOLA: 06/05/[address]: Maddy CISNEROS REQ: [id number] RECD: 06/05/17 STATUS: JENNIFER CALERO DR: Tapan [...] used with this assay. * ML - [facility] ([facility]) . END OF REPORT * ML=Testing performed at Main Lab DEPARTMENT OF PATHOLOGY, [address] [place] [address] René Corrigan M.D. Director [facility] # [id number] 10 SEE RESULT BELOW Name: JAYDE CASEY : [address]: Germain Tejeda MD Acct: [id number] Unit: [id number] AGE: 22 Location: ED Re06/04/17 SEX: F Status: DEP ER SPEC: [id number] YOLA: 06/05/17-0007 [facility] DR: Maddy CISNEROS REQ: [id number] RECD: 06/05/17 STATUS: JENNIFER CALERO DR: Tapan Tejeda MD _ SOURCE: URINE SPDESC: ORDERED: Urine Culture Procedure Result Reported Site Urine Culture Final 06/06/1754 ML No growth of clinically significant organisms * ML - MAIN LAB ([facility]) . END OF REPORT * ML=Testing performed at Main Lab DEPARTMENT OF PATHOLOGY, [address] [place] [address] René Corrigan M.D. Director [facility] # [id number] 11 Critical Result LACT:2.3 Called to [id number] at: 22:46:30 by:[id number] Read back by:[facility] Severe Sepsis and Septic Shock Management [...] [address]: Sabra Thompson MD Acct: [id number] Unit: [id number] AGE: 21 Location: [facility] Re11/20/16 SEX: F Status: REG REF SPEC: [id number] YOLA: 11/20/16-[address] [place] [address] DR: Tapan Thompson MD REQ: [id number] RECD: 11/20/16-180 STATUS: SOUT _ ORDERED: TP IMAGE ANAL, INJURY/SAFETY HAZARD ASSESSMENT PHYS INTERP COMMENTS: [id number] FINAL DIAGNOSIS EPITHELIAL CELL ABNORMALITIES Low grade [...] Signed (signature on file) René Corrigan MD 1535 This Pap test was evaluated with the assistance of the Pretty [employer] Test Imaging System. Due to cytologic findings at the customer relationship specialist microscope, comprehensive manual rescreening by a Outreach Liaison may be required. The Pap Smear is [...] performed at Main Lab DEPARTMENT OF PATHOLOGY, [address] [place] [address] René Corrigan M.D. Director [facility] # [id number] 16 SEE RESULT BELOW Name: JAYDE CASEY : [address]: Douglas Collins NP Acct: [id number] Unit: [id number] AGE: 21 Location: [facility] Re07/24/16 SEX: F Status: REG REF SPEC: [id number] YOLA: 07/24/16-[address]: Douglas Collins NP REQ: [id number] RECD: 07/24/16 STATUS: COMP _ SOURCE: VAGINAL SPDESC: ORDERED: Ashlie,Yeast DNA, Trich DNA COMMENTS: [id number] Procedure Result Reported Site Gardnerella/Yeast: Vaginal DNA [...] performed at Main Lab DEPARTMENT OF PATHOLOGY, [address] [place] [address] René Corrigan M.D. Director [facility] # [id number] Patient: JAYDE CASEY [id number] (Continued) Specimen: [id number] Collected: 07/24/16 Received: 07/24/16 (Continued) Procedure Result Reported Site Trichomonas: Vaginal DNA Probe Final (continued) 07/25/16- 1316 The presence or absence of T. vaginalis cannot be used as a test for therapeutic success or failure. * ML - MAIN LAB ([facility]) . END OF REPORT * ML=Testing performed at Main Lab DEPARTMENT OF PATHOLOGY, [address] [place] [address] René Corrigan M.D. Director [facility] # [id number] 17 FASTING 10 HOUR fasting labs do in Am no later than 8 am 18 AM 8.7-22.4 PM <10 19 Desirable <150 Borderline high 150-199 High 200-499 Very High >500 20 Desirable <200 Borderline high 200-239 High >239 21 Low <40 Desirable: 40-60 High: >60 22 Desirable: <100 mg/dL Near Optimal: 100-129 mg/dL Borderline High: 130-159 mg/dL High: 160-189 mg/dL Very High: >189 mg/dL 23 FASTING 10 HOUR fasting labs do in Am no later than 8 am 24 SEE RESULT BELOW Name: JAYDE CASEY : [address]: Douglas Collins RECREATIONAL THERAPY TECHNICIAN Acct: [id number] Unit: [id number] AGE: 21 Location: [facility] Re02/04/16 SEX: F Status: REG REF SPEC: [id number] YOLA: 02/04/16-1649 [facility] DR: Douglas Collins RECREATIONAL THERAPY TECHNICIAN REQ: [id number] RECD: 02/04/16 STATUS: SOUT _ ORDERED: IMAGE ANALYSIS, PAP SM PATH REV COMMENTS: [id number] FINAL DIAGNOSIS EPITHELIAL CELL ABNORMALITIES Low grade [...] was evaluated with the assistance of the [employer] Test Imaging System. Due to cytologic findings at the customer relationship specialist microscope, comprehensive manual rescreening by a Outreach Liaison may be required. The Pap Smear is [...] performed at Main Lab DEPARTMENT OF PATHOLOGY, [address] [place] [address] René Corrigan M.D. Director [facility] # [id number] Procedures Date Code Description Status 01/21/2018 69006 Inject/Drain Joint/Bursa Major W/O US Completed 11/17/2013 67854 EKG Tracing & Interpretation Completed 09/13/2013 52373 EKG, Interpretation Only Completed 05/04/2013 91583 Polysomnography Sleep Staging 4+ Parameters W/Cpap Completed 12/21/2012 94367 Polysomnography Sleep Staging 4+ Parameters Completed Encounters Type Date Location Provider Dx Diagnosis Office Visit 07/21/2018 [facility] Internal Maryanne Silva MD J06.9 Acute upper [...] in right knee Office Visit 05/17/2018 4:00p [facility] Internal Mazin R51 Headache Medicine - [place] [address] Office Visit 05/07/2018 3:00p [facility] Rachel Milan MD J06.9 Acute upper Medicine - respiratory [place] infection, unspecified Office Visit 04/26/2018 3:20p [facility] Tapan Lubin R51 Headache Medicine - Alonso Thompson M.D.,FACP Rd S06.0x0S Concussion without loss of consciousness, sequela Office Visit 04/15/2018 3:40p [facility] Mazin R51 Headache Azar Gilmore M.D. [address] Office Visit 04/07/2018 10:20a [facility] Internal Roberto Deras R51 Headache Azar Mack M.D. [place] Office Visit 03/24/2018 1:40p [facility] Esther Bui, Z11.1 Encounter for Medicine - FOOTBALL SCOUT screening for [address] respiratory tuberculosis E66.9 [...] disorders, right knee Office Visit 01/14/2018 8:20a [facility] Shoaib Retana M25.561 Pain in right Azar Gilmore M.D. knee [address] Office Visit 01/07/2018 11:40a [facility] Mazin M25.561 Pain in right Azar Gilmore M.D. knee [address] Office Visit 09/21/2017 11:00a [facility] Tapan Lubin L03.811 Cellulitis of Azar Thompson M.D.,FACP head [any part, [address] except face] R87.612 Low grade intrepith lesion cyto smr crvx (LGSIL) J45.40 Moderate persistent asthma, uncomplicated Z23 Encounter for immunization Office Visit 05/20/2017 11:00a [facility] Esther Bui, J01.90 Acute sinusitis, Medicine - FOOTBALL SCOUT unspecified [address] R05 Cough J01.10 Acute frontal sinusitis, unspecified J01.00 Acute maxillary sinusitis, unspecified Office Visit 04/14/2017 11:20a [facility] Mazin Gilmore, Z00.01 Encounter for Medicine - M.D. general adult [address] medical exam w abnormal findings Z23 Encounter for immunization Z11.1 Encounter for screening for respiratory tuberculosis Office Visit 11/20/2016 3:40p [facility] Tapan Lubin R87.618 Oth abnormal Azar Thompson M.D.,FACP cytolog findings [address] on specimens from cervix uteri G47.00 Insomnia, unspecified E66.01 Morbid (severe) obesity due to excess calories E03.9 Hypothyroidism, unspecified Office Visit 07/24/2016 1:40p [facility] Douglas Collins, N76.0 Acute vaginitis Medicine - [place] RECRE[address]ERAPY TECHNIC[address] Office Visit 04/14/2016 11:20a [facility] Douglas Collins, L42 Pityriasis rosea Medicine - [place] [address]Y TECHNIC[address] Z11.1 Encounter for screening for respiratory tuberculosis Office Visit 04/11/2016 2:20p [facility] Douglas Collins, Z02.1 Encounter for Medicine - RECREATIONAL THERAPY TECHNICIAN pre-employment [address] examination Z11.1 Encounter for screening for respiratory tuberculosis E66.9 Obesity, unspecified Office Visit 03/20/2016 1:40p [facility] Tapan Lubin J45.21 Mild intermittent Azar Thompson M.D.,FACP asthma with [address] (acute) exacerbation Z23 Encounter for immunization Office Visit 02/26/2016 1:40p [facility] Douglas Collins, G47.00 Insomnia, Medicine - RECREATIONAL THERAPY TECHNICIAN unspecified [address] Office Visit 02/04/2016 1:40p [facility] Douglas Collins, Z01.419 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 - RECREATIONAL THERAPY TECHNICIAN exam (general) [address] (routine) w/o abn findings E66.9 Obesity, unspecified Office Visit 11/19/2015 1:40p [facility] Douglas Collins, M70.71 Other bursitis of Medicine - RECREATIONAL THERAPY TECHNICIAN hip, right hip [address] Office Visit 11/02/2015 9:20a [facility] Tapan Lubin E73.9 Lactose Azar Thompson, intolerance, [address] Aye,FACP unspecified K21.9 Gastro-esophageal reflux disease without esophagitis E66.09 Other obesity due to excess calories M25.551 Pain in right hip Office Visit 05/07/2015 4:00p [facility] Roland Wilkins, E73.8 Other lactose Medicine - [place] M.D. intolerance Rd E73.9 Lactose intolerance, unspecified Office Visit 04/19/2015 11:00a [facility] Douglasjason Collins, J20.9 Acute bronchitis, Medicine - [place] RECREATIONAL THERAPY TECHNICIAN unspecified Rd R05 Cough R06.2 Wheezing M54.5 Low back pain Office Visit 04/12/2015 11:00a [facility] Roland Wilkins, J06.9 Acute upper Medicine - [place] M.D. respiratory Rd infection, unspecified K21.9 Gastro-esophageal reflux disease without esophagitis G47.33 Obstructive sleep apnea (adult) (pediatric) E66.09 Other obesity due to excess calories Office Visit 11/17/2013 2:00p [facility] Misbah Lubin 780.79 Malaise And Of [...] am - Jean Sahu MD at [facility] Tolxhh8508/25/2018 1:40 pm - Maryanne Silva MD at [facility] Internal Medicine - [address]08/04/2018 - Maryanne Silva MDK59.00 Constipation, unspecifiedComments:I recommend you do a Fleet enema tonight and take Nguyen milk of magnesia as well. If you're not better after emptying your bowels, call us for another same day visit.R10.84 Generalized abdominal pain
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
[2018-08-11 23:55] VITALS: BP 119/84
== END | disposition home or self-care (01) ==
LOC: ED 21:26
DX: T22.211A Burn of second degree of right forearm, initial encounter (principal); S99.922A Unspecified injury of left foot, initial encounter; X10.2XXA Contact with fats and cooking oils, initial encounter; Y92.9 Unspecified place or not applicable
CPT/HCPCS: 99282; A9270-GY

== ENCOUNTER 2018-08-28 20:49 | Emergency (ER) | payer OTHER ==
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
[2018-08-28] MEDS ORDERED: Acetaminophen ADULT LIQ* 650 MG/20.3 ML UDC PO ONE (21:20)
[2018-08-28] MEDS ORDERED: Lidocaine 2% VISCOUS* 15 ML UDC PO ONE (21:21)
--- NOTE | 2018-08-28 21:26 | ED ---
Throat Pain/Nasal Congestion - HPI Summary HPI Summary: 23 year old female presents with sore throat for the past 3 days. She admits to sinus congestion starting yesterday. Boyfriend is sick with bronchitis. She admits to slight headache. No ear pain. She admits to diarrhea. She states has had nausea but no vomiting. Hasn't taking anything for her symptoms. Has no medical conditions. No abdominal pain. Has a history of strep. She states it hurts when she talks. Hurts when she swallows but is able to do so. - History of Current Complaint Chief Complaint: EDThroatPain Time Seen by Provider: 08/28/18 21:02 - Allergies/Home Medications Allergies/Adverse Reactions: Allergies Allergy/AdvReac Type Severity Reaction Status Date / Time NSAIDS (Non-Steroidal AdvReac Stomach Verified 08/28/18 20:59 Anti-Inflamma Cramps PMH/Surg Hx/FS Hx/Imm Hx Endocrine/Hematology History: Denies: Hx Anticoagulant Therapy, Hx Blood Disorders, Hx Diabetes, Hx Thyroid Disease Cardiovascular History: Denies: Hx Hypertension, Hx Pacemaker/ICD Respiratory History: Reports: Hx Sleep Apnea - Current CPAP user on auto setting. Denies: Hx Asthma, Hx Chronic Obstructive Pulmonary Disease (COPD) GI History: Reports: Hx Gastroesophageal Reflux Disease - 30 mg omeprazole q daily w/good results, Hx Ulcer Musculoskeletal History: Reports: Hx Back Problems - recent complaint of low back pain Sensory History: Reports: Hx Contacts or Glasses Denies: Hx Hearing Aid Opthamlomology History: Reports: Hx Contacts or Glasses Psychiatric History: Reports: Hx Anxiety Denies: Hx Panic Disorder - Surgical History Surgery Procedure, Year, and Place: wisdom teeth - Immunization History Date of Tetanus Vaccine: utd Date of Influenza Vaccine: fall 2017 Infectious Disease History: No Infectious Disease History: Denies: Hx Clostridium Difficile, Hx Hepatitis, Hx Human Immunodeficiency Virus (HIV), Hx of Known/Suspected MRSA, Hx Shingles, Hx Tuberculosis, Hx Known/ Suspected VRE, Hx Known/Suspected VRSA, History Other Infectious Disease, Traveled Outside the [place] in Last 30 Days - Family History Known Family History: Positive: None, Other - mom- multiple health issues Family History: R & n/C - Social History Alcohol Use: Rare Hx Substance Use: No Substance Use Type: Reports: None Hx Tobacco Use: No Smoking Status (MU): Never Smoked Tobacco Have You Smoked in the Last Year: No Review of Systems Negative: Fever Positive: Sore Throat, Nasal Discharge Negative: Chest Pain Positive: Cough. Negative: Shortness Of Breath All Other Systems Reviewed And Are Negative: Yes Physical Exam Triage Information Reviewed: Yes Vital Signs On Initial Exam: Initial Vitals Temp Pulse Resp BP Pulse Ox 97.7 F 110 16 135/86 96 08/28/18 20:58 08/28/18 20:58 08/28/18 20:58 08/28/18 20:58 08/28/18 20:58 Vital Signs Reviewed: Yes Appearance: Positive: Well-Appearing Skin: Positive: Warm, Dry Head/Face: Positive: Normal Head/Face Inspection Eyes: Positive: Normal, EOMI, ROBERT, Conjunctiva Clear ENT: Positive: Pharyngeal erythema, Nasal congestion, TMs normal, Uvula midline , Other - soft palate symmetric. Negative: Tonsillar swelling, Tonsillar exudate, Trismus, Muffled voice Neck: Positive: Supple, Nontender, No Lymphadenopathy Respiratory/Lung Sounds: Positive: Clear to Auscultation, Breath Sounds Present Cardiovascular: Positive: Normal, RRR Abdomen Description: Positive: Nontender, Soft Bowel Sounds: Positive: Present Musculoskeletal: Positive: Normal Neurological: Positive: Normal Psychiatric: Positive: Normal Diagnostics - Vital Signs Vital Signs Temp Pulse Resp BP Pulse Ox 08/28/18 20:58 97.7 F 110 16 135/86 96 - Laboratory Lab Statement: Any lab studies that have been ordered have been reviewed, and results considered in the medical decision making process. Re-Evaluation - Re-Evaluation First Eval Re-Evaluation Time: 22:05 Change: Improved Comment: lidocaine helped with pain EENT Course/Dx - Course Course Of Treatment: 23 year old female presents with sore throat for the past 3 days. She admits to sinus congestion starting yesterday. Boyfriend is sick with bronchitis. She admits to slight headache. No ear pain. She admits to diarrhea. She states has had nausea but no vomiting. Hasn't taking anything for her symptoms. Has no medical conditions. No abdominal pain. Has a history of strep. She states it hurts when she talks. Hurts when she swallows but is able to do so. On exam airway patent. No drooling. Pharynx erythematous. Uvula midline. Soft palate symmetric. Strep and flu negative. Will treat conservatively with steroid and Magic mouthwash. Patient understands and agrees the plan. - Differential Diagnoses Differential Diagnoses: Pharyngitis, Sinusitis, Tonsilitis, URI/Bronchitis - Diagnoses Provider Diagnoses: Pharyngitis Discharge - Sign-Out/Discharge Documenting (check all that apply): Patient Departure Patient Received Moderate/Deep Sedation with Procedure: No - Discharge Plan Condition: Good Disposition: HOME Prescriptions: Dexamethasone TAB* [Decadron TAB*] 4 mg PO DAILY #5 tab Magic Mouth Was-ART/MAAL/LIDO* 5 ml SWISH SPIT QID #100 ml Patient Education Materials: Pharyngitis (ED) Referrals: Maryanne Silva MD [Primary Care Provider] - Additional Instructions: Magic mouthwash 5ml swish and spit can use 4x a day Take steroid once a day for 5 days Take Tylenol or ibuprofen for pain every 6 hours Use saline spray in nose as much as needed for nasal congestion Can gargle salt water Can use cough drops or products such as cloraseptic spray Return to ED if develop any new or worsening symptoms - Billing Disposition and Condition Condition: GOOD Disposition: Home
[2018-08-28 21:56] LABS: Influenza A Molecular NEGATIVE (Negative); Influenza B Molecular NEGATIVE (Negative)
[2018-08-28 22:15] VITALS: BP 142/82
== END 2018-08-28 22:15 | disposition home or self-care (01) ==
LOC: ED 20:49
DX: J02.9 Acute pharyngitis, unspecified (principal); R09.81 Nasal congestion; R51 Headache; R19.7 Diarrhea, unspecified; R11.0 Nausea; R05 Cough; Z88.6 Allergy status to analgesic agent
CPT/HCPCS: 87651; 99282; A9270-GY

== ENCOUNTER 2018-10-29 21:51 | Emergency (ER) | payer OTHER ==
--- OUTSIDE RECORDS SUMMARY | 2018-10-29 22:00 | XMS REPORT | Continuity of Care Document ---
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 [facility] Internal Esther Bui, R05 Cough Medicine - [place] J06.9 Acute upper respiratory infection, unspecified Office Visit 07/21/2018 10:00a [facility] Internal Maryanne Silva, J06.9 Acute upper Medicine - [place] respiratory Rd infection, unspecified R12 Heartburn Office Visit 06/30/2018 1:40p [facility] Internal Maryanne Silva, G43.009 Migraine w/o aura, Medicine - MD not intractable, [address] w/o status migrainosus S06.0x1A Concussion w Loc of 30 minutes or less, init K21.9 Gastro-esophageal reflux disease without esophagitis Office Visit 06/11/2018 Orthopedic Hank Hammond, S92.415A Nondisp fx of 3:00p Services Of proximal phalanx of [facility] left great toe, init Office Visit 05/20/2018 Orthopedic Tesfaye Mosley M22.2x1 Patellofemoral 2:45p Services Of MD Eduardo disorders, right [facility] knee M25.561 Pain in right knee Office Visit 05/17/2018 4:00p [facility] Internal Mazin Gilmore, R51 Headache Medicine - Deann.Amee [address] Office Visit 05/07/2018 3:00p [facility] Internal Rachel Milan MD J06.9 Acute upper Medicine respiratory infection, unspecified Office Visit 04/26/2018 3:20p [facility] Internal Tapan Lubin R51 Headache Azar Thompson M.D.,FACP [address] S06.0x0S Concussion without loss of consciousness, sequela Office Visit 04/15/2018 3:40p [facility] Internal Mazin R51 Headache Azar Gilmore M.D. [address] Office Visit 04/07/2018 10:20a [facility] Internal Roberto Carrasquillo1 Headache Azar Mack M.D. [place] Office Visit 03/24/2018 1:40p [facility] Internal Esther Bui, Z11.1 Encounter for Medicine - SCHEDULE ANNOUNCER screening for [address] respiratory tuberculosis E66.9 [...] disorders, right knee Office Visit 01/14/2018 8:20a [facility] Internal Mazin M25.561 Pain in right Azar Gilmore M.D. knee [address] Office Visit 01/07/2018 11:40a [facility] Internal Mazin M25.561 Pain in right Azar Gilmore M.D. knee [address] Office Visit 09/21/2017 11:00a [facility] Internal Tapan Lubin L03.811 Cellulitis of Azar Thompson M.D.,FACP head [any part, [address] except face] R87.612 Low grade intrepith lesion cyto smr crvx (LGSIL) J45.40 Moderate persistent asthma, uncomplicated Z23 Encounter for immunization Office Visit 05/20/2017 11:00a [facility] Internal Esther Bui, J01.90 Acute sinusitis, Medicine - SCHEDULE ANNOUNCER unspecified [address] R05 Cough J01.10 Acute frontal sinusitis, unspecified J01.00 Acute maxillary sinusitis, unspecified Office Visit 04/14/2017 11:20a [facility] Internal Mazin Gilmore, Z00.01 Encounter for Medicine - MCharley general adult [address] medical exam w abnormal findings Z23 Encounter for immunization Z11.1 Encounter for screening for respiratory tuberculosis Office Visit 11/20/2016 3:40p [facility] Internal Tapan Lubin R87.618 Oth abnormal Azar Thompson M.D.,FACP cytolog findings [address] on specimens from cervix uteri G47.00 Insomnia, unspecified E66.01 Morbid (severe) obesity due to excess calories E03.9 Hypothyroidism, unspecified Office Visit 07/24/2016 1:40p [facility] Internal Douglas Collins, N76.0 Acute vaginitis Medicine - [address] [employer] [address] Office Visit 04/14/2016 11:20a [facility] Internal Douglas Collins, L42 Pityriasis rosea Medicine - [address] Z11.1 Encounter for screening for respiratory tuberculosis Office Visit 04/11/2016 2:20p [facility] Internal Douglas Collins, Z02.1 Encounter for Medicine - [employer] pre-employment [address] examination Z11.1 Encounter for screening for respiratory tuberculosis E66.9 Obesity, unspecified Office Visit 03/20/2016 1:40p [facility] Internal Tapan Lubin J45.21 Mild intermittent Azar Thompson M.D.,FACP asthma with [address] (acute) exacerbation Z23 Encounter for immunization Office Visit 02/26/2016 1:40p [facility] Internal Douglas Collins, G47.00 Insomnia, Medicine - [employer] unspecified [address] Office Visit 02/04/2016 1:40p [facility] Internal Douglas Collins, 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) w/o abn findings E66.9 Obesity, unspecified Office Visit 11/19/2015 1:40p [facility] Internal Douglas Collins, M70.71 Other bursitis of Medicine - [employer] hip, right hip [address] Office Visit 11/02/2015 9:20a [facility] Internal Tapan Lubin E73.9 Lactose Medicine - Jay, intolerance, [address] MCharley,FACP unspecified K21.9 Gastro-esophageal reflux disease without esophagitis E66.09 Other obesity due to excess calories M25.551 Pain in right hip Office Visit 05/07/2015 4:00p [facility] Internal Roland Wilkins, E73.8 Other lactose Medicine - [address] M.[address] intolerance [address] E73.9 Lactose intolerance, unspecified Office Visit 04/19/2015 11:00a [facility] Internal Douglas Collins, J20.9 Acute bronchitis, Medicine - [place] [employer] unspecified Rd R05 Cough R06.2 Wheezing M54.5 Low back pain Office Visit 04/12/2015 11:00a [facility] Internal Roland Wilkins, J06.9 Acute upper Medicine - [place] M.D. respiratory [address] infection, unspecified K21.9 Gastro-esophageal reflux disease without esophagitis G47.33 Obstructive sleep apnea (adult) (pediatric) E66.09 Other obesity due to excess calories Office Visit 11/17/2013 2:00p [facility] Misbah Lubin 780.79 Mala[facility] Aye Dillard Fatigue Other 327.23 Obstructive Sleep Apnea Adult & Pediatric Office Visit 12/30/2012 2:55p Sleep Disorder Josiah RODGERS 327.23 [facility] Aye Charles Apnea Adult & Pediatric Office Visit 12/02/2012 3:09p Sleep Disorder Josiah RODGERS 327.23 [facility] Aye Charles Apnea Adult & Pediatric 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 Plan of Treatment Future Appointment(s):04/27/2019 4:00 pm - Maryanne Silva MD at [facility] Internal Mbktwzsx54/28/2019 1:15 pm - Tesfaye Clark MD at [facility]12/27/2018 2:30 pm - Rocio Yeboah MD at [facility]11/23/2018 11:00 am - Jean Sahu MD at [facility] [id number]/25/2018 - Maryanne Silva MDG43.009 Migraine without aura, not intractable , without status migraComments:don't forget your magnesium daily, at bedtime, for migraine preventionFollow up:6 moS06.0x1D Concussion with loss of consciousness of 30 minutes or less,
--- OUTSIDE RECORDS SUMMARY | 2018-10-29 22:00 | XMS REPORT | Continuity of Care Document ---
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 unspecified Office Visit 11/19/2015 1:40p [facility] Douglas Collins, M70.71 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 respiratory [address] infection, unspecified K21.9 Gastro-esophageal reflux disease without esophagitis G47.33 Obstructive sleep apnea (adult) (pediatric) E66.09 Other obesity due to excess calories Office Visit 11/17/2013 2:00p [facility] Misbah Lubin 780.79 [facility] Aye Dillard Fatigue Other 327.23 Obstructive Sleep Apnea Adult & Pediatric Office Visit 12/30/2012 2:55p Sleep Disorder Josiah RODGERS 327.23 Obstructive Sleep [facility] Aye Charles Apnea Adult & Pediatric Office Visit 12/02/2012 3:09p Sleep Disorder Josiah RODGERS 327.23 [facility] Aye Charles Apnea Adult & Pediatric 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
[2018-10-30 00:28] VITALS: BP 133/67
--- NOTE | 2018-10-30 00:35 | ED ---
Skin Complaint - HPI Summary HPI Summary: Pt is a 23 y/o F presenting to the ED with a chief complaint of a rash on the L side of her groin onset today. She c/o pruritus and anxiety, and thinks the rash is ringworm. She denies fevers or chills. - History of Current Complaint Chief Complaint: EDRashSkinAbscess Time Seen by Provider: 10/30/18 00:17 Stated Complaint: I THINK I HAVE RINGWORM IN A WEIRD PLACE PER PT Hx Obtained From: Patient Hx Last Menstrual Period: Middle of June Onset/Duration: Started Hours Ago, Still Present Skin Exposure Onset/Duration: Hours Ago Timing: Constant, Lasting Hours Onset Severity: Mild Current Severity: None Pain Intensity: 0 Pain Scale Used: 0-10 Numeric Skin Location: Other: - L side of groin Character: Pruritus Aggravating Symptom(s): Nothing Alleviating Symptom(s): Nothing - Allergy/Home Medications Allergies/Adverse Reactions: Allergies Allergy/AdvReac Type Severity Reaction Status Date / Time NSAIDS (Non-Steroidal AdvReac Stomach Verified 10/29/18 21:55 Anti-Inflamma Cramps PMH/Surg Hx/FS Hx/Imm Hx Previously Healthy: Yes Endocrine/Hematology History: Denies: Hx Anticoagulant Therapy, Hx Blood Disorders, Hx Diabetes, Hx Thyroid Disease Cardiovascular History: Denies: Hx Hypertension, Hx Pacemaker/ICD Respiratory History: Reports: Hx Sleep Apnea - Current CPAP user on auto setting. Denies: Hx Asthma, Hx Chronic Obstructive Pulmonary Disease (COPD) GI History: Reports: Hx Gastroesophageal Reflux Disease - 30 mg omeprazole q daily w/good results, Hx Ulcer History: Denies: Hx Dialysis, Hx Renal Disease Musculoskeletal History: Reports: Hx Back Problems - recent complaint of low back pain Sensory History: Reports: Hx Contacts or Glasses Denies: Hx Hearing Aid Opthamlomology History: Reports: Hx Contacts or Glasses Psychiatric History: Reports: Hx Anxiety Denies: Hx Panic Disorder - Surgical History Surgery Procedure, Year, and Place: wisdom teeth - Immunization History Date of Tetanus Vaccine: utd Date of Influenza Vaccine: fall 2017 Infectious Disease History: No Infectious Disease History: Denies: Hx Clostridium Difficile, Hx Hepatitis, Hx Human Immunodeficiency Virus (HIV), Hx of Known/Suspected MRSA, Hx Shingles, Hx Tuberculosis, Hx Known/ Suspected VRE, Hx Known/Suspected VRSA, History Other Infectious Disease, Traveled Outside the [place] in Last 30 Days - Family History Known Family History: Positive: Other - mom- multiple health issues - Social History Alcohol Use: Rare Hx Substance Use: No Substance Use Type: Reports: None Hx Tobacco Use: No Smoking Status (MU): Never Smoked Tobacco Have You Smoked in the Last Year: No Review of Systems Negative: Fever, Chills Positive: Rash, Other - pruritus Positive: Anxious All Other Systems Reviewed And Are Negative: Yes Physical Exam - Summary Physical Exam Summary: Appearance: Well-appearing, Well-nourished, lying in bed comfortable Skin: Warm, dry, Small 1.5cm oval erythematous plaque of central clearing consistent with tinia corporis on L groin area. Eyes: sclera anicteric, no conjunctival pallor ENT: mucous membranes moist Neck: deferred Respiratory: No signs of respiratory distress Cardiovascular: Appears well perfused, pulses are nml Abdomen: deferred Musculoskeletal: Moving all 4 extremities without obvious discomfort Neurological: Awake and alert, mentation is normal, speech is fluent and appropriate Psychiatric: affect is normal, does not appear anxious or depressed Triage Information Reviewed: Yes Vital Signs On Initial Exam: Initial Vitals Temp Pulse Resp BP Pulse Ox 98.3 F 107 16 135/84 97 10/29/18 21:53 10/29/18 21:53 10/29/18 21:53 10/29/18 21:53 10/29/18 21:53 Vital Signs Reviewed: Yes Diagnostics - Vital Signs Vital Signs Temp Pulse Resp BP Pulse Ox 10/29/18 21:53 98.3 F 107 16 135/84 97 - Laboratory Lab Statement: Any lab studies that have been ordered have been reviewed, and results considered in the medical decision making process. Course/Dx - Course Course Of Treatment: Pt is a 23 y/o F presenting to the ED with a chief complaint of a rash on the L side of her groin. She c/o pruritus and anxiety, and thinks the rash is ringworm. She denies fevers or chills. The pt's affected area looks like ringworm, and she will be discharged with a dx of ringworm. She is stable and agreeable with this plan. - Diagnoses Provider Diagnoses: Ringworm Discharge - Sign-Out/Discharge Documenting (check all that apply): Patient Departure Patient Received Moderate/Deep Sedation with Procedure: No - Discharge Plan Condition: Stable Disposition: HOME Prescriptions: Terbinafine HCl [Antifungal] 15 gm TP DAILY #15 cream..g. Patient Education Materials: Skin Yeast Infection (ED) Referrals: Maryanne Silva MD [Primary Care Provider] - - Billing Disposition and Condition Condition: STABLE Disposition: Home - Attestation Statements Document Initiated by Neshaibe: Yes Documenting Scribe: Breanne White Provider For Whom Michael is Documenting (Include Credential): Benito Jones MD. Scribe Attestation: Breanne Alan, zhenged for Benito Jones MD. on 11/03/18 at 0409. Scribe Documentation Reviewed: Yes Provider Attestation: The documentation as recorded by the Breanne vu accurately reflects the service I personally performed and the decisions made by , Benito Jones MD. Status of Scribe Document: Viewed
== END 2018-10-30 00:27 | disposition home or self-care (01) ==
LOC: ED 21:51
DX: B35.9 Dermatophytosis, unspecified (principal); F41.9 Anxiety disorder, unspecified; G47.30 Sleep apnea, unspecified; K21.9 Gastro-esophageal reflux disease without esophagitis
CPT/HCPCS: 99281

== ENCOUNTER 2018-11-27 22:22 | Emergency (ER) | payer OTHER ==
--- OUTSIDE RECORDS SUMMARY | 2018-11-27 22:58 | XMS REPORT | Continuity of Care Document ---
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 Visit 07/24/2016 1:40p [facility] Internal Douglas Collins, N76.0 Acute vaginitis Medicine - Suite SCALEMAN R Office Visit 04/14/2016 11:20a [facility] Internal Douglas Collins, L42 Pityriasis rosea Medicine - Suite SCALEMAN R Z11.1 Encounter for screening for respiratory tuberculosis Office Visit 04/11/2016 2:20p [facility] Internal Douglas Collins, Z02.1 Encounter for Medicine - SCALEMAN pre-employment Suite R examination Z11.1 Encounter for screening for respiratory tuberculosis E66.9 Obesity, unspecified Office Visit 03/20/2016 1:40p [facility] Internal Tapan Lubin J45.21 Mild intermittent Azar Thompson M.D.,FACP asthma with Suite R (acute) exacerbation Z23 Encounter for immunization Office Visit 02/26/2016 1:40p [facility] Internal Douglas Collins, G47.00 Insomnia, Medicine - SCALEMAN unspecified Suite R Office Visit 02/04/2016 1:40p [facility] Internal Douglas Collins, Z01.419 Encntr for off premise service representative Medicine - SCALEMAN exam (general) Suite R (routine) w/o abn findings E66.9 Obesity, unspecified Office Visit 11/19/2015 1:40p [facility] Internal Douglas Collins, M70.71 Other bursitis of Medicine - SCALEMAN hip, right hip Suite R Office Visit 11/02/2015 9:20a [facility] Internal Tapan Lubin E73.9 Lactose Azar Thompson, intolerance, Suite R M.D.,FACP unspecified K21.9 Gastro-esophageal reflux disease without esophagitis E66.09 Other obesity due to excess calories M25.551 Pain in right hip Office Visit 05/07/2015 4:00p [facility] Internal Roland Wilkins, E73.8 Other lactose Medicine - Suite M.D. intolerance R E73.9 Lactose intolerance, unspecified Office Visit 04/19/2015 11:00a [facility] Internal Douglas Collins, J20.9 Acute bronchitis, Medicine - Suite SCALEMAN unspecified R R05 Cough R06.2 Wheezing M54.5 Low back pain Office Visit 04/12/2015 11:00a [facility] Internal Roland Wilkins, J06.9 Acute upper Medicine - Suite M.D. respiratory R infection, unspecified K21.9 Gastro-esophageal reflux disease without esophagitis G47.33 Obstructive sleep apnea (adult) (pediatric) E66.09 Other obesity due to excess calories Office Visit 11/17/2013 2:00p [facility] Misbah Lubin 780.79 Malaise And Of Quique Dillard M.D. Fatigue Other 327.23 Obstructive Sleep Apnea Adult & Pediatric Office Visit 12/30/2012 2:55p Sleep Disorder Josiah SK. 327.23 Obstructive Sleep Center Aye Charles Apnea Adult & Pediatric Office Visit 12/02/2012 3:09p Sleep Disorder Josiah SK. 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
[2018-11-28] MEDS ORDERED: Acetaminophen TAB* 325 MG PO ONE (01:05)
[2018-11-28] MEDS ORDERED: Metoclopramide IV* 5 MG/ML 2 ML VIAL IV ONE (01:05)
[2018-11-28] MEDS ORDERED: diPHENhydraMINE IV* 50 MG/ML 1 ml VIAL (BENADRYL) IV ONE (01:05)
[2018-11-28] MEDS ORDERED: NS 0.9% 1000 ML** 1,000 ML IV ONE (01:05)
--- NOTE | 2018-11-28 01:15 | ED ---
Headache - HPI Summary HPI Summary: Complains of diffuse headache, nausea starting today at 1500. Patient has history of migraines, followed by a neurologist Dr. Sahu. States this headache same as usual migraine but more intense. Does not respond to usual medications. Denies trauma, fever, vision change, focal deficits, cough, sore throat, neck stiffness, CP, SOB, V/D, abdominal pain, change in urine, change in BM. Medical history is GERD, depression, anxiety. - History Of Current Complaint Chief Complaint: EDHeadache Stated Complaint: HEADACHE PER PT Time Seen by Provider: 11/28/18 01:04 Hx Obtained From: Patient Hx Last Menstrual Period: Middle of June Onset/Duration: Sudden Onset, Started hours ago Timing: Constant Character: Throbbing, Typical Headache, Migraine Location of Headache: Diffuse Aggravating Factor: Exertion, Bright Lights Allevating Factors: Nothing Associated Signs And Symptoms: Nausea - Allergies/Home Medications Allergies/Adverse Reactions: Allergies Allergy/AdvReac Type Severity Reaction Status Date / Time NSAIDS (Non-Steroidal AdvReac Stomach Verified 11/27/18 22:40 Anti-Inflamma Cramps PMH/Surg Hx/FS Hx/Imm Hx Endocrine/Hematology History: Denies: Hx Anticoagulant Therapy, Hx Blood Disorders, Hx Diabetes, Hx Thyroid Disease Cardiovascular History: Denies: Hx Hypertension, Hx Pacemaker/ICD Respiratory History: Reports: Hx Sleep Apnea - Current CPAP user on auto setting. Denies: Hx Asthma, Hx Chronic Obstructive Pulmonary Disease (COPD) GI History: Reports: Hx Gastroesophageal Reflux Disease - 30 mg omeprazole q daily w/good results, Hx Ulcer History: Denies: Hx Dialysis, Hx Renal Disease Musculoskeletal History: Reports: Hx Back Problems - recent complaint of low back pain Sensory History: Reports: Hx Contacts or Glasses Denies: Hx Hearing Aid Opthamlomology History: Reports: Hx Contacts or Glasses Neurological History: Denies: Hx Dementia Psychiatric History: Reports: Hx Anxiety Denies: Hx Panic Disorder - Surgical History Surgery Procedure, Year, and Place: wisdom teeth - Immunization History Date of Tetanus Vaccine: utd Date of Influenza Vaccine: fall 2017 Infectious Disease History: No Infectious Disease History: Denies: Hx Clostridium Difficile, Hx Hepatitis, Hx Human Immunodeficiency Virus (HIV), Hx of Known/Suspected MRSA, Hx Shingles, Hx Tuberculosis, Hx Known/ Suspected VRE, Hx Known/Suspected VRSA, History Other Infectious Disease, Traveled Outside the [place] in Last 30 Days - Family History Known Family History: Positive: Other - mom- multiple health issues - Social History Alcohol Use: Rare Hx Substance Use: No Substance Use Type: Reports: None Hx Tobacco Use: No Smoking Status (MU): Never Smoked Tobacco Have You Smoked in the Last Year: No Review of Systems Constitutional: Negative Positive: Photophobia ENT: Negative Cardiovascular: Negative Respiratory: Negative Positive: Nausea Genitourinary: Negative Musculoskeletal: Negative Skin: Negative Positive: Headache Psychological: Normal All Other Systems Reviewed And Are Negative: Yes Physical Exam - Summary Physical Exam Summary: Neuro exam normal. Full range of motion of neck and jaw. Triage Information Reviewed: Yes Vital Signs On Initial Exam: Initial Vitals Temp Pulse Resp BP Pulse Ox 97.6 F 92 16 155/105 98 11/27/18 22:35 11/27/18 22:35 11/27/18 22:35 11/27/18 22:35 11/27/18 22:35 Vital Signs Reviewed: Yes Appearance: Positive: Well-Appearing Skin: Positive: Warm Head/Face: Positive: Normal Head/Face Inspection Eyes: Positive: Normal ENT: Positive: Normal ENT inspection Neck: Positive: Supple Respiratory/Lung Sounds: Positive: Clear to Auscultation Cardiovascular: Positive: Normal Abdomen Description: Positive: Nontender Musculoskeletal: Positive: Normal Neurological: Positive: Normal Psychiatric: Positive: Normal AVPU Assessment: Alert - [place] Coma Scale Best Eye Response: 4 - Spontaneous Best Motor Response: 6 - Obeys Commands Best Verbal Response: 5 - Oriented Coma Scale Total: 15 Diagnostics - Vital Signs Vital Signs Temp Pulse Resp BP Pulse Ox 11/28/18 00:35 97.0 F 72 18 146/80 100 11/27/18 22:35 97.6 F 92 16 155/105 98 - Laboratory Lab Statement: Any lab studies that have been ordered have been reviewed, and results considered in the medical decision making process. Headache Course/Dx - Course Course Of Treatment: Complains of diffuse headache, nausea starting today at 1500. Patient has history of migraines, followed by a neurologist Dr. Sahu. States this headache same as usual migraine but more intense. Does not respond to usual medications. Denies trauma, fever, vision change, focal deficits, cough, sore throat, neck stiffness, CP, SOB, V/D, abdominal pain, change in urine, change in BM. Medical history is GERD, depression, anxiety. Physical exam:Neuro exam normal. Full range of motion of neck and jaw. Vital signs within normal limits. Symptoms improved with migraine cocktail. Patient stated she was ready to go home. Advised patient follow up with neurology. - Diagnoses Provider Diagnoses: Migraine Discharge - Sign-Out/Discharge Documenting (check all that apply): Patient Departure Patient Received Moderate/Deep Sedation with Procedure: No - Discharge Plan Condition: Stable Disposition: HOME Patient Education Materials: Migraine Headache (ED) Referrals: Maryanne Silva MD [Primary Care Provider] - Additional Instructions: Follow-up with your neurologist. - Billing Disposition and Condition Condition: STABLE Disposition: Home
[2018-11-28 02:41] VITALS: BP 152/97
== END 2018-11-28 03:03 | disposition home or self-care (01) ==
LOC: ED 22:22
DX: G43.909 Migraine, unspecified, not intractable, without status migrainosus (principal)
CPT/HCPCS: 96361; 96374; 96375; 99283; A9270-GY; J1200; J2765

== ENCOUNTER 2019-03-13 15:31 | Emergency (ER) | payer OTHER ==
--- OUTSIDE RECORDS SUMMARY | 2019-03-13 15:38 | XMS REPORT | Continuity of Care Document ---
:1995 External Reference #:[id number] Author Name Messi Su, OD Address [address] [place] [address] Care Team Providers Name Role Phone Jay SAGE, [place] - Internal Care Team Information Allergist/Immunologist [phone] Medicine Problems Active Problems Provider Date Regular astigmatism Messi Araiza O.D. Onset: 05/16/2014 Myopia Messi Araiza O.D. Onset: 05/16/2014 Vitreous degeneration Messi Araiza O.D. Onset: 05/16/2014 Visual disturbance Messi Araiza O.D. Onset: 05/16/2014 Social History Type Date Description Comments Sex Unknown ETOH Use Rarely consumes alcohol Tobacco Use Start: Unknown Patient has never smoked Smoking Status Reviewed: 03/09/19 Patient has never smoked Allergies, Adverse Reactions, Alerts Active Allergies Reaction Severity Comments Date NSAIDs 05/20/2016 Medications Active Medications SIG Qnty Indications Ordering Provider Date Familianomehdi Jake Hayes MD 1-35mg-mcg Tablets Omeprazole Unknown 20mg Capsules Venlafaxine HCL ER Take 1 Capsule By Unknown 75mg Mouth Every Day Caps ER 24HR With Food Zantac 150 Maximum Unknown Strength 150mg Tablets Topiramate Maryanne Silva M.D. 25mg Tablets Banophen Take 1 To 2 Unknown 25mg Capsules Capsules By Mouth AT Bedtime as Needed Gabapentin Take 1 Capsule By Unknown 300mg Mouth AT Bedtime Capsules Magnesium Unknown 500mg Tablets [place] 3 500 Unknown 500mg Capsules Immunizations Description No Information Available Vital Signs Date Vital Result Comment 03/09/2019 3:20pm Intraocular Pressure Right Eye 17 mmHg Intraocular Pressure Left Eye 17 mmHg 02/17/2018 3:05pm Intraocular Pressure Right Eye 17 mmHg Intraocular Pressure Left Eye 17 mmHg Results Description No Information Available Procedures Date Code Description Status 03/09/2019 57646 Refraction Completed 03/09/2019 42610 Eye Exam Est Comprehensive Completed Medical Devices Description No Information Available Encounters Description No Information Available Assessments Date Code Description Provider 03/09/2019 H52.13 Myopia, bilateral Messi Doranteson, OD 03/09/2019 H43.813 Vitreous degeneration, bilateral Messi Su, OD 03/09/2019 F07.81 Postconcussional syndrome Messi Su, OD Plan of Treatment 03/09/2019 - Messi Doranteson, ODH52.13 Myopia, yqyphmfmbB88.813 Vitreous degeneration, bwbfixcuvI61.81 Postconcussional syndromeFollow up:yearly full sooner PRN Functional Status Description No Information Available Mental Status Description No Information Available Referrals Description No Information Available
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
[2019-03-13 15:57] VITALS: BP 141/81
--- NOTE | 2019-03-13 16:03 | UC ---
Lower Extremity/Ankle HPI - HPI Summary HPI Summary: Slipped and fell getting out shower yesterday morning; pain to L shoulder and L foot and ankle; unable to bear weight. Denies any head injury or LOC. - History of Current Complaint Chief Complaint: UCTrauma Stated Complaint: LEFT ANKLE AND SHOULDER INJURY Time Seen by Provider: 03/13/19 15:58 Hx Last Menstrual Period: 2 weeks ago Pain Intensity: 10 - Allergies/Home Medications Allergies/Adverse Reactions: Allergies Allergy/AdvReac Type Severity Reaction Status Date / Time NSAIDS (Non-Steroidal AdvReac Stomach Verified 03/13/19 15:47 Anti-Inflamma Cramps PMH/Surg Hx/FS Hx/Imm Hx Other History Of: Negative For: Anticoagulant Therapy - Surgical History Surgical History: Yes Surgery Procedure, Year, and Place: wisdom teeth. APPENDECTOMY - Family History Known Family History: Positive: Other - mom- multiple health issues - Social History Alcohol Use: Rare Substance Use Type: None Smoking Status (MU): Never Smoked Tobacco Type: eCigarettes Have You Smoked in the Last Year: No - Immunization History Most Recent Influenza Vaccination: 2018 Most Recent Pneumonia Vaccination: 2017 Vaccination Up to Date: Yes Review of Systems All Other Systems Reviewed And Are Negative: Yes Constitutional: Negative: Fever Skin: Negative: Rash, Bruising Musculoskeletal: Positive: Arthralgia - L shoulder, L ankle., Decreased ROM, Edema, Myalgia Physical Exam Triage Information Reviewed: Yes Appearance: Well-Appearing Vital Signs: Initial Vital Signs Temp 98.8 F 03/13/19 15:50 Pulse 100 03/13/19 15:50 Resp 18 03/13/19 15:50 BP 141/81 03/13/19 15:50 Pulse Ox 99 03/13/19 15:50 Vital Signs Reviewed: Yes Respiratory Exam: Normal Cardiovascular Exam: Normal Musculoskeletal: Positive: ROM Limited @ - L ankle. L shoulder., Edema @ - L ankle.. Negative: Other: - neg false pass's on L foot Neurological: Positive: Alert Skin: Negative: Rashes Lower Extremity Course/Dx - Course Course Of Treatment: Fell yesterday in shower after tripping/slipping. Injured her L shoulder and L ankle. Came in today b/c she felt it wasn't better. Xray of shoulder and ankle are unremarkable. Likely just mild contusion. neurovascularly intact. ice for pain relief. we used dayami wrap today. - Differential Dx/Diagnosis Differential Diagnosis/HQI/PQRI: Fracture (Closed), Sprain, Strain, Tendonitis Provider Diagnosis: Left shoulder pain, Left ankle pain Discharge ED - Sign-Out/Discharge Documenting (check all that apply): Patient Departure All imaging exams completed and their final reports reviewed: Yes - Discharge Plan Condition: Good Disposition: HOME Patient Education Materials: Ankle Sprain (DC) Referrals: Maryanne Silva MD [Primary Care Provider] - - Billing Disposition and Condition Condition: GOOD Disposition: Home
== END 2019-03-13 16:50 | disposition home or self-care (01) ==
LOC: UCEAST 15:31
DX: M25.512 Pain in left shoulder (principal); M25.572 Pain in left ankle and joints of left foot; Z88.8 Allergy status to other drugs, medicaments and biological substances; W18.2XXA Fall in (into) shower or empty bathtub, initial encounter; Y92.9 Unspecified place or not applicable
CPT/HCPCS: 99212; G0463

== ENCOUNTER 2019-09-11 12:32 | Emergency (ER) | payer OTHER ==
--- OUTSIDE RECORDS SUMMARY | 2019-09-11 12:39 | XMS REPORT | Continuity of Care Document ---
:1995 External Reference #:[id number] Author Name Kaitlyn Salgado M.D. (transmitted by agent of provider Blair Espino) Address [address] [place] [address] Care Team Providers Name Role Phone Yanelis Nunez MD Care Team Information Maintenance Painter Apprentice [phone] Maryanne Silva M.D. - Internal Care Team Information Maintenance Painter Apprentice [phone] Medicine Problems Active Problems Provider Date Allergic rhinitis due to animals Kaitlyn Salgado M.D. Onset: 09/07/2019 Allergic rhinitis due to pollen Kaitlyn Salgado M.D. Onset: 09/07/2019 Exercise-induced asthma Kaitlyn Salgado M.D. Onset: 09/07/2019 Idiopathic urticaria Kaitlyn Salgado M.D. Onset: 09/07/2019 Social History Type Date Description Comments Sex Unknown ETOH Use Rarely consumes alcohol Tobacco Use Start: Unknown Patient has never smoked Recreational Drug Use Denies Drug Use Smoking vapes few months, uses for anxiety Allergies, Adverse Reactions, Alerts Active Allergies Reaction Severity Comments Date Propofol Hives 09/07/2019 NSAIDS vomiting 09/07/2019 Medications Active Medications SIG Qnty Indications Ordering Date Provider Desloratadine 1 by mouth every 30tabs L50.1 Kaitlyn Salgado, 09/07/2019 5mg Tablets day M.D. Venlafaxine HCL ER Take 1 Capsule By Unknown 150mg Mouth Every Day Caps ER 24HR With Food Famotidine Take 1 Tablet By Unknown 40mg Tablets Mouth Every Day Gabapentin Take 1 Capsule By Unknown 300mg Capsules Mouth AT Bedtime Omeprazole Take 1 Capsule By Unknown 20mg Capsules Mouth Every Day DR Topiramate Unknown 50mg Tablets [place] 1/35 Take 1 Tablet By Unknown 1-35mg-mcg Mouth Every Day Tablets as Directed Rizatriptan Benzoate Take 1 Tablet By Unknown 5mg Mouth as Needed Tablets For Migraines May Repeat Every 2 Hours For Up To3 Tablets In One Day Immunizations CPT Code Status Date Vaccine Lot # [id number] Given Unknown Influenza Vaccine Vital Signs Date Vital Result Comment 09/07/2019 1:22pm Height 63.5 inches 5'3.50" Weight 228.00 lb Weight 103.421 kg Respiratory Rate 20 /min Heart Rate 95 /min O2 % BldC Oximetry 98 % BP Systolic 125 mmHg BP Diastolic 83 mmHg BMI (Body Mass Index) 39.8 kg/m2 Results Description No Information Available Procedures Date Code Description Status 09/07/2019 53104 Skin Test Scratch # Of Units ____ Completed Medical Devices Description No Information Available Encounters Description No Information Available Assessments Date Code Description Provider 09/07/2019 L50.1 Idiopathic urticaria Kaitlyn Salgado M.D. 09/07/2019 J45.990 Exercise induced bronchospasm Kaitlyn Salgado M.D. 09/07/2019 J30.1 Allergic rhinitis due to pollen Kaitlyn Salgado M.D. 09/07/2019 J30.81 Allergic rhinitis due to animal (cat) (dog) Kaitlyn Salgado M.D. hair and dander Plan of Treatment 09/07/2019 - Kaitlyn Salgado M.D.L50.1 Idiopathic futfuldihG31.990 Exercise induced iimeusdlfdinO77.1 Allergic rhinitis due to souuloA76.81 Allergic rhinitis due to animal (cat) (dog) hair and danderNew Medication:Desloratadine 5 mgFollow up:6 weeks CHECK-UP/FOLLOW UP VISIT: Continued management of patient' s medical care.Recommendations:Refrain from wearing perfumes/scented colognes while visiting our office. Skin testing to common environmental allergens performed, reviewed, positive to dust mite, cat,dog, mold spores, less so but still positive to tree, grass, weed, ragweed For now, start Tiffanie or desloratadine daily to try to prevent the rash or itching You could also start Nasacort 1-2 spray in each nostril once daily Functional Status Description No Information Available Mental Status Description No Information Available Referrals Description No Information Available
--- OUTSIDE RECORDS SUMMARY | 2019-09-11 12:39 | XMS REPORT | Continuity of Care Document ---
:1995 External Reference #:[id number] Author Name Kaitlyn Salgado M.D. (transmitted by agent of provider Salome Rob) Address [address] [place] [address] Care Team Providers Name Role Phone Yanelis Nunez MD Care Team Information Equity Research Associate [phone] Maryanne Silva M.D. - Internal Care Team Information Equity Research Associate [phone] Medicine Problems Active Problems Provider Date Allergic [...] CPT Code Status Date Vaccine Lot # [id number] Given Unknown Influenza Vaccine Vital Signs Date Vital Result Comment 09/07/2019 1:22pm Height 63.5 inches 5'3.50" Weight 228.00 lb Weight 103.421 kg Respiratory Rate 20 /min Heart Rate 95 /min O2 % BldC Oximetry 98 % BP Systolic 125 mmHg BP Diastolic 83 mmHg BMI (Body Mass Index) 39.8 kg/m2 Results Description No Information Available Procedures Date Code Description Status 09/07/2019 63656 Skin Test Scratch # Of Units ____ Completed Medical Devices Description No Information Available Encounters Type Date Location Provider Dx Diagnosis Office Visit 09/07/2019 [place] Kaitlyn Salgado M.D. L50.1 Idiopathic urticaria 1:20p J45.990 Exercise induced bronchospasm J30.1 Allergic rhinitis due to pollen J30.81 Allergic rhinitis due to animal (cat) (dog) hair and dander Assessments Date Code Description Provider 09/07/2019 L50.1 Idiopathic urticaria Kaitlyn Salgado M.D. 09/07/2019 J45.990 Exercise induced bronchospasm Kaitlyn Salgado M.D. 09/07/2019 J30.1 Allergic rhinitis due to pollen Kaitlyn Salgado M.D. 09/07/2019 J30.81 Allergic rhinitis due to animal (cat) (dog) Kaitlyn Salgado M.D. hair and dander Plan of Treatment Future Appointment(s):10/19/2019 1:20 pm - [facility] [place] Functional Status Description No Information Available Mental Status Description No Information Available Referrals Description No Information Available
--- OUTSIDE RECORDS SUMMARY | 2019-09-11 12:39 | XMS REPORT ---
:1995 Author Organization [facility] Care Team Providers Name Role Phone EttaalexanderJohanneyl Primary Care Physician Unavailable Allergies, Adverse Reactions, Alerts Allergy Code CodeSystem Reaction Severity Criticality Status Start Substance Date Moderate Medications Medication Medication Medication Start Stop Route Dose Status Fill Code CodeSystem Date Date Instructions diphenhydramine 3403788 RxNorm 2019- oral 25 mg active for 30 HCl 4-10 07-09 capsule day(s) gabapentin 150208 RxNorm 2017-06- oral 300 mg active for 30 2-18 07-09 capsule day(s) venlafaxine 015475 RxNorm 2019- oral 150 mg active for 30 5-24 08-22 capsule, day(s) extended release 24hr diphenhydramine 5117436 RxNorm 2017-06 2019- oral 25 mg completed for 30 HCl 2-18 04-10 capsule day(s) venlafaxine 915050 RxNorm 2019- oral 75 mg completed for 30 3-22 05-24 capsule, day(s) extended release 24hr Problems Problem Name Code CodeSystem Alternate Alternate Start End Status Narrative Code CodeSystem Date Date Generalized 70983067 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 Relevant diagnostic tests/laboratory data Narrative No Information Procedures Procedure Code CodeSystem Target Date of Status Service Device Device Device Name Site Procedure Delivery Code Name UID Location Psychotherap 675407 SNOMED-CT () 2019-04-20 complete Mental y, 45 04 d Health- minutes with [place] patient [address], [id number] [id number] Psychotherap [id number] SNOMED-CT () 2018-09-15 complete Mental y, 45 04 d Health- minutes with [place] patient [address], [id number] [phone] Psychotherap [id number] SNOMED-CT () 2018-10-13 complete Mental y, 45 04 d Health- minutes with [address], [id number] [phone] Psychotherap 612141 SNOMED-CT () 2018-10-27 complete Mental y, 45 04 d Health- minutes with [address], [id number] [id number] Psychotherap [id number] SNOMED-CT () 2018-11-03 complete Mental y, 45 04 d Health- minutes with [address], [id number] [phone] Psychotherap 548671 SNOMED-CT () 2018-10-06 complete Mental y, 45 04 d Health- minutes with [address], [id number] [id number] Psychotherap 565314 SNOMED-CT () 2019-05-18 complete Mental y, 45 04 d Health- minutes with [address], [id number] [id number] Psychotherap [id number] SNOMED-CT () 2019-06-07 complete Mental y, 45 04 d Health- minutes with [address], [id number] [id number] Psychotherap [id number] SNOMED-CT () 2018-12-29 complete Mental y, 45 04 d Health- minutes with [address], [id number] [phone] Psychotherap [id number] SNOMED-CT () 2019-01-06 complete Mental y, 45 04 d Health- minutes with [address], [id number] [phone] Psychotherap [id number] SNOMED-CT () 2019-01-12 complete Mental y, 45 04 d Health- minutes with [address], [id number] [phone] Psychotherap [id number] SNOMED-CT () 2019-03-16 complete Mental y, 45 04 d Health- minutes with [address], [id number] [phone] Psychotherap 317133 SNOMED-CT () 2019-04-27 complete Mental y, 45 04 d Health- minutes with [place] patient [address], [id number] [id number] Psychotherap [id number] SNOMED-CT () 2019-05-04 complete Mental y, 45 04 d Health- minutes with [place] patient [address], [id number] [phone] Office or [id number] SNOMED-CT () 2019-03-07 complete Mental other 7 d Health- outpatient [facility] visit for [address], established [id number] patient, [phone] which requires at least 2 of these 3 dumont components: An expanded problem focused history; An expanded problem focused examination; Medical decision making of low Office or [id number] SNOMED-CT () 2018-10-29 complete Mental other 6 d Health- outpatient [facility] visit for [address], established [id number] patient, [phone] which requires at least 2 of these 3 dumont components: A problem focused history; A problem focused examination; Straightforw nikita medical decision making. Counselin Office or [id number] SNOMED-CT () 2019-06-22 complete Mental other 6 d Health- outpatient [facility] visit for [address], established [id number] patient, [phone] which requires at least 2 of these 3 dumont components: A problem focused history; A problem focused examination; Straightforw nikita medical decision making. Counselin SNOMED-CT () 2019-05-12 complete Mental d Health- [place] [address], [id number] [phone] Encounters/Encounter Diagnoses Encounter Name Encounter Diagnosis Diagnosis Diagnosis Date of Service Code Code Name CodeSystem Diagnosis Delivery Location - [id number] Generalized SNOMED-CT 2019-06-22 Behavioral Established anxiety Health patient 10 disorder Clinic [address] [place], [place], [id number] Vital Signs No Information Social History Element Description Description Start End Code CodeSystem AdditionalInfo Date Date SexAssignedAtBirth Female 1994- F AdministrativeGender 8-21 Hospital Discharge Instructions Reason For Referral Medical Equipment FDA Assessments
--- OUTSIDE RECORDS SUMMARY | 2019-09-11 12:39 | XMS REPORT ---
:1995 Author Organization [facility] Care Team Providers Name Role Phone EttaChristina guerrero Primary Care Physician Unavailable Allergies, Adverse Reactions, Alerts Allergy Code CodeSystem Reaction Severity Criticality Status Start Substance Date Moderate Medications Medication Medication Medication Start Stop Route Dose Status Fill Code CodeSystem Date Date Instructions venlafaxine 786568 RxNorm 2019- oral 150 mg active for 30 5-24 08-22 capsule, day(s) extended release 24hr venlafaxine 739687 RxNorm 2019- oral 75 mg completed for 30 3-22 05-24 capsule, day(s) extended release 24hr diphenhydramine 6123281 RxNorm 2017-06- oral 25 mg completed for 30 HCl 2-18 04-10 capsule day(s) gabapentin 519318 RxNorm 2017-06 2019- oral 300 mg active for 30 2-18 07-09 capsule day(s) diphenhydramine 9538713 RxNorm 2019- oral 25 mg active for 30 HCl 4-10 07-09 capsule day(s) Problems Problem Name Code CodeSystem Alternate Alternate Start End Status Narrative Code CodeSystem Date Date Generalized 16892338 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 Relevant diagnostic tests/laboratory data Narrative No Information Procedures Procedure Code CodeSystem Target Date of Status Service Device Device Device Name Site Procedure Delivery Code Name UID Location Psychotherap 207662 SNOMED-CT () 2018-09-15 complete Mental y, 45 04 d Health- minutes with [address], [id number] [id number] Psychotherap 895244 SNOMED-CT () 2018-10-13 complete Mental y, 45 04 d Health- minutes with [facility] patient [address], [phone] [phone] Office or 843987 SNOMED-CT () 2018-10-29 complete Mental other 6 d Health- outpatient [facility] visit for [address], [facility], of [facility], established [id number] patient, [phone] which requires at least 2 of these 3 dumont components: A problem focused history; A problem focused examination; Straightforw nikita medical decision making. Counselin Psychotherap 546502 SNOMED-CT () 2018-10-27 complete Mental y, 45 04 d Health- minutes with [place] patient [address], [id number] [phone] Psychotherap 835394 SNOMED-CT () 2018-11-03 complete Mental y, 45 04 d Health- minutes with [place] patient [address], [id number] [phone] Psychotherap [id number] SNOMED-CT () 2018-10-06 complete Mental y, 45 04 d Health- minutes with [facility] patient [address], [id number] [phone] Psychotherap 974604 SNOMED-CT () 2018-12-29 complete Mental y, 45 04 d Health- minutes with [place] patient [address], [id number] [phone] Psychotherap [id number] SNOMED-CT () 2019-01-06 complete Mental y, 45 04 d Health- minutes with [facility] patient [address], [id number] [phone] Psychotherap 362547 SNOMED-CT () 2019-01-12 complete Mental y, 45 04 d Health- minutes with [facility] patient [address], [id number] [phone] Office or [id number] SNOMED-CT () 2019-03-07 complete Mental other 7 d Health- outpatient [facility] visit for [address], of an [place], established [id number] patient, [phone] which requires at least 2 of these 3 dumont components: An expanded problem focused history; An expanded problem focused examination; Medical decision making of low Psychotherap 191633 SNOMED-CT () 2019-03-16 complete Mental y, 45 04 d Health- minutes with [facility] patient [address], [phone] Psychotherap 800694 SNOMED-CT () 2019-04-27 complete Mental y, 45 04 d Health- minutes with [place] patient [address], [id number] [phone] Psychotherap 226037 SNOMED-CT () 2019-05-04 complete Mental y, 45 04 d Health- minutes with [facility] patient [address], [id number] [phone] Psychotherap 936234 SNOMED-CT () 2019-05-18 complete Mental y, 45 04 d Health- minutes with [place] patient [address], [id number] [phone] Psychotherap 178149 SNOMED-CT () 2019-06-07 complete Mental y, 45 04 d Health- minutes with [facility] patient [address], [id number] [phone] SNOMED-CT () 2019-05-12 complete Mental d Health- [address], [id number] [phone] Psychotherap 311999 SNOMED-CT () 2019-04-20 complete Mental y, 45 04 d Health- minutes with [facility] patient [address], [id number] [phone] Office or [id number] SNOMED-CT () 2019-06-22 complete Mental other 6 d Health- outpatient [facility] visit for [address], of an [place], established [id number] patient, [phone] which requires at least 2 of these 3 dumont components: A problem focused history; A problem focused examination; Straightforw nikita medical decision making. Counselin Psychotherap [id number] SNOMED-CT () 2019-07-27 complete Mental y, 45 04 d Health- minutes with [facility] patient [address], [id number] [phone] Psychotherap [id number] SNOMED-CT () 2019-08-10 complete Mental y, 45 04 d Health- minutes with [facility] patient [address], [id number] [phone] Encounters/Encounter Diagnoses Encounter Name Encounter Diagnosis Diagnosis Diagnosis Date of Service Code Code Name CodeSystem Diagnosis Delivery Location [facility] [id number] Generalized SNOMED-CT 2019-08-10 Behavioral Individual 30 anxiety Health min disorder Clinic [address] [place] [address], [id number] Vital Signs No Information Social History Element Description Description Start End Code CodeSystem AdditionalInfo Date Date SexAssignedAtBirth Female F AdministrativeGender 01-26 Hospital Discharge Instructions Reason For Referral Medical Equipment FDA Assessments
[2019-09-11 13:08] VITALS: BP 132/86
--- NOTE | 2019-09-11 13:11 | UC ---
Complaint Female HPI - HPI Summary HPI Summary: patient cannot get tampon out of vagina. was in vagina for 4 hours when she had sex with male. denies pain - History Of Current Complaint Chief Complaint: [facility] Stated Complaint: PERSONAL Time Seen by Provider: 09/11/19 12:34 Hx Obtained From: Patient Hx Last Menstrual Period: 09/10/19 ?: No Onset/Duration: Sudden Onset Pain Intensity: 0 Aggravating Factor(s): Nothing Alleviating Factor(s): Nothing Associated Signs And Symptoms: Positive: Negative - Allergies/Home Medications Allergies/Adverse Reactions: Allergies Allergy/AdvReac Type Severity Reaction Status Date / Time NSAIDS (Non-Steroidal AdvReac Stomach Verified 09/11/19 12:37 Anti-Inflamma Cramps Home Medications: Home Medications Kelnor 1-35 mg-Mcg 1 tab PO DAILY 07/17/14 [History Confirmed 09/11/19] Albuterol inh POWDER (NF) [Proair Respiclick] 1 puff INH DAILY PRN 08/02/18 [ History Confirmed 09/11/19] Frovatriptan Succinate 2.5 mg PO DAILY PRN 08/02/18 [History Confirmed 09/11/19] Gabapentin CAP(*) [Neurontin 300 CAP(*)] 300 mg PO QPM 08/02/18 [History Confirmed 09/11/19] Omeprazole CAP (NF) [Prilosec CAP* 20 MG] 20 mg PO DAILY 08/02/18 [History Confirmed 09/11/19] Venlafaxine EXT RELEASE CAP* [Effexor Xr CAP*] 150 mg PO DAILY 08/02/18 [ History Confirmed 09/11/19] metroNIDAZOLE [Metronidazole 0.75 % gel] 1 applic TOPICAL BID 08/02/18 [History Confirmed 09/11/19] Magnesium Oxide [Magnesium] 500 mg PO DAILY 01/31/19 [History Confirmed 09/11/19 ] Columbia-3/Dha/Epa/Fish Oil [Columbia 3 500 Softgel] 1 cap PO DAILY 01/31/19 [History Confirmed 09/11/19] Topiramate TAB(*) [Topamax 25 MG tab] 25 mg PO BID 01/31/19 [History Confirmed 09/11/19] Famotidine TAB* [Pepcid 20 MG TAB*] 20 mg PO DAILY 09/11/19 [History Confirmed 09/11/19] PMH/Surg Hx/FS Hx/Imm Hx Previously Healthy: Yes GI/ History: Gastroesophageal Reflux Psychological History: Depression Other History Of: Negative For: Anticoagulant Therapy - Surgical History Surgical History: Yes Surgery Procedure, Year, and Place: wisdom teeth. APPENDECTOMY - Family History Known Family History: Positive: Other - mom- multiple health issues, Non- Contributory - Social History Occupation: Student Lives: With Family Alcohol Use: None Substance Use Type: None Smoking Status (MU): Never Smoked Tobacco Type: eCigarettes Have You Smoked in the Last Year: No - Immunization History Most Recent Influenza Vaccination: 2018 Most Recent Pneumonia Vaccination: 2017 Vaccination Up to Date: Yes Review of Systems All Other Systems Reviewed And Are Negative: Yes Constitutional: Positive: Negative Respiratory: Positive: Negative. Negative: Shortness Of Breath, Cough Cardiovascular: Positive: Negative Gastrointestinal: Positive: Negative. Negative: Abdominal Pain Psychological: Positive: Negative Is Patient Immunocompromised?: No Physical Exam Triage Information Reviewed: Yes Appearance: Well-Appearing, No Pain Distress, Well-Nourished Vital Signs Reviewed: Yes Respiratory Exam: Normal Respiratory: Positive: Lungs clear Cardiovascular Exam: Normal Cardiovascular: Positive: RRR Abdominal Exam: Normal Abdomen Description: Positive: Nontender, Soft Pelvic Exam: Positive: External Exam Normal, Speculum Exam Normal, Other - tampon visualized in vagina. no evidence injury vagina or cervix. Negative: Lesions, Tender w/ Cervical Motion Neurological Exam: Normal Psychological Exam: Normal Complaint Female Dx - Course Course Of Treatment: tampon was removed without difficulty using vaginal speculum and ring forceps - Differential Dx/Diagnosis Differential Diagnosis/HQI/PQRI: Retained Foreign Body, Sexually Transmitted Disease, Other - trauma Provider Diagnosis: Vaginal foreign object Discharge ED - Sign-Out/Discharge Documenting (check all that apply): Patient Departure All imaging exams completed and their final reports reviewed: No Studies - Discharge Plan Condition: Good Disposition: HOME Patient Education Materials: Vaginal Foreign Body (ED) Referrals: Maryanne Silva MD [Primary Care Provider] - If Needed (if vaginal symptoms or fever develops) Additional Instructions: the vaginal foreign object was removed please monitor for vaginal pain, discharge or fever and report to your primary care provider if these occur - Billing Disposition and Condition Condition: GOOD Disposition: Home
== END 2019-09-11 13:20 | disposition home or self-care (01) ==
LOC: UCEAST 12:32
DX: T19.2XXA Foreign body in vulva and vagina, initial encounter (principal); X58.XXXA Exposure to other specified factors, initial encounter; Y92.9 Unspecified place or not applicable; K21.9 Gastro-esophageal reflux disease without esophagitis; F32.9 Major depressive disorder, single episode, unspecified; Z79.899 Other long term (current) drug therapy; Z88.6 Allergy status to analgesic agent
CPT/HCPCS: 99212; G0463